=== PATIENT | male | born 1990 | race Caucasian/White ===

== ENCOUNTER 2016-10-15 03:59 | Inpatient (IN) | payer MEDICAID, OTHER ==
[2016-10-15] MEDS ORDERED: Ondansetron INJ* 2 MG/ML VIAL IV ONE ×2 (04:15→06:15)
[2016-10-15] MEDS ORDERED: NS 0.9% 1000 ML* 1,000 ML IV ONE ×2 (04:15→06:17)
[2016-10-15 04:38] LABS: Hematocrit 50 % (42-52); Hemoglobin 17.9 g/dl (14.0-18.0); Mean Corpuscular HGB Conc 36 g/dl (31-36); Mean Corpuscular Hemoglobin 37 pg (27-31); Mean Corpuscular Volume 103 fL (80-94); Mean Platelet Volume 8 um3 (7.4-10.4); Red Blood Count 4.83 10^6/ul (4.0-5.4); Red Cell Distribution Width 13 % (10.5-15); White Blood Count 19.8 10^3/ul (3.5-10.8)
[2016-10-15 04:43] LABS: Add Diff/Slide Review? Slide Review Added; Comments Flag Yes
--- NOTE | 2016-10-15 04:50 | ED ---
Akbar Tsang Claudia, scribed for Allen Wilson MD on 10/15/16 at 0412 . Abdominal Pain/Male - HPI Summary HPI Summary: 26 year old male presents to the ED with LUQ abd pain radiating to his back. Pt notes the abd pain just started a few hours ago. Pt notes that he has been vomiting for the past week, but it has gotten progressively worse in the past few days. Pt states that he had several bouts of emesis today. Pt notes he has an appt. with his PCP next week. Pt also admits to nausea bu denies any fever or chills. - History of Current Complaint Chief Complaint: EDAbdPain Stated Complaint: ABD PAIN Hx Obtained From: Patient Onset/Duration: Gradual Onset, Still Present, Worse Since - today Pain Intensity: 8 Pain Scale Used: 0-10 Numeric Location: Discrete At: LUQ Radiates: Yes Radiates to: Other - left shoulder Character: Sharp Associated Signs And Symptoms: Positive: Nausea, Vomiting - Allergies/Home Medications Allergies/Adverse Reactions: Allergies Allergy/AdvReac Type Severity Reaction Status Date / Time No Known Allergies Allergy Verified 04/27/16 15:18 PMH/Surg Hx/FS Hx/Imm Hx Previously Healthy: Yes Endocrine/Hematology History: Denies: Hx Diabetes, Hx Thyroid Disease Cardiovascular History: Denies: Hx Hypertension Respiratory History: Denies: Hx Asthma, Hx Chronic Obstructive Pulmonary Disease (COPD) GI History: Denies: Hx Ulcer Sensory History: Reports: Hx Contacts or Glasses - glasses Opthamlomology History: Reports: Hx Contacts or Glasses - glasses - Surgical History Surgery Procedure, Year, and Place: inguinal hernia repair 2011. birthmark removal from back Infectious Disease History: No Infectious Disease History: Denies: Hx Hepatitis, Hx Human Immunodeficiency Virus (HIV), Hx of Known/ Suspected MRSA, Hx Shingles, Hx Tuberculosis, History Other Infectious Disease, Traveled Outside the [place] in Last 30 Days - Family History Known Family History: Positive: Other - noncontibutory - Social History Occupation: Employed Full-time Lives: With Family Alcohol Use: Daily Alcohol Amount: 2 drinks per day, more on days off up to 5 drinks Substance Use Type: Reports: None Smoking Status (MU): Never Smoked Tobacco Review of Systems Constitutional: Negative Negative: Fever, Chills Eyes: Negative ENT: Negative Cardiovascular: Negative Respiratory: Negative Positive: Abdominal Pain, Vomiting, Nausea Genitourinary: Negative Musculoskeletal: Negative Skin: Negative Neurological: Negative Psychological: Normal All Other Systems Reviewed And Are Negative: Yes Physical Exam Triage Information Reviewed: Yes Vital Signs On Initial Exam: Initial Vitals Temp Pulse Resp BP Pulse Ox 97.7 F 96 24 154/115 99 10/15/16 04:06 10/15/16 04:06 10/15/16 04:06 10/15/16 04:06 10/15/16 04:06 Vital Signs Reviewed: Yes Appearance: Positive: Pain Distress - mild discomfort, Obese Skin: Positive: Warm Eyes: Positive: EARL ENT: Positive: Hearing grossly normal Neck: Positive: Supple Respiratory/Lung Sounds: Positive: Clear to Auscultation, Breath Sounds Present Cardiovascular: Positive: Normal Abdomen Description: Positive: Soft, Other: - upper abd tenderness. Negative: Guarding Musculoskeletal: Positive: Normal, Strength/ROM Intact Neurological: Positive: Sensory/Motor Intact, Alert, Oriented to Person Place, Time Psychiatric: Positive: Affect/Mood Appropriate Diagnostics - Vital Signs Vital Signs Temp Pulse Resp BP Pulse Ox 10/15/16 04:06 97.7 F 96 24 154/115 99 - Laboratory Lab Results: Lab Results 10/15/16 Range/Units 04:20 WBC 19.8 H (3.5-10.8) 10^3/ul RBC 4.83 (4.0-5.4) 10^6/ul Hgb 17.9 (14.0-18.0) g/dl Hct 50 (42-52) % MCV 103 H (80-94) fL MCH 37 H (27-31) pg MCHC 36 (31-36) g/dl RDW 13 (10.5-15) % Plt Count 296 (150-450) 10^3/ul MPV 8 (7.4-10.4) um3 Neut % (Auto) 88.6 H (38-83) % Lymph % (Auto) 5.3 L (25-47) % [place] % (Auto) 5.1 (1-9) % Eos % (Auto) 0 (0-6) % Baso % (Auto) 1.0 (0-2) % Absolute Neuts (auto) 17.5 H (1.5-7.7) 10^3/ul Absolute Lymphs (auto) 1.0 (1.0-4.8) 10^3/ul Absolute Monos (auto) 1.0 H (0-0.8) 10^3/ul Absolute Eos (auto) 0 (0-0.6) 10^3/ul Absolute Basos (auto) 0.2 (0-0.2) 10^3/ul Absolute Nucleated RBC 0.01 10^3/ul Nucleated RBC % 0 Result Diagrams: 10/15/16 04:20 10/15/16 05:10 Lab Statement: Any lab studies that have been ordered have been reviewed, and results considered in the medical decision making process. - EKG 4:08 Cardiac Rate: NL EKG Rhythm: Sinus Rhythm - 93 beats/min ST Segment: Non-Specific - non-specific T wave changes Abdominal Pain Fem Course/Dx - Diagnoses Provider Diagnoses: Pancreatitis - Provider Notifications Discussed Care Of Patient With: dr cerrato Instructed by Provider To: Admit As Inpatient Discharge - Discharge Plan Condition: Fair Disposition: ADMITTED TO [facility] Discharge Disposition Comment: Signed out to Dr. Sparks pending CT abd/pelvis Referrals: Duc López MD [Primary Care Provider] - The documentation as recorded by the Akbar alvarado Claudia accurately reflects the service I personally performed and the decisions made by , Allen Wilson MD.
[2016-10-15 05:21] LABS: Sodium 120 mmol/L (133-145)
[2016-10-15] MEDS ORDERED: Morphine INJ* 4 MG/ML 1 ML CARPUJECT IV ONE (05:21)
[2016-10-15 05:22] LABS: ALT 86 U/L (7-52); Albumin 4.7 g/dL (3.2-5.2); Alkaline Phosphatase 61 U/L (34-104); Anion Gap 14 mmol/L (2-11); BUN/Creatinine Ratio 9.3 (8-20); Blood Urea Nitrogen 18 mg/dL (6-24); C Reactive Protein 10.25 mg/L (< 5.00); CO2 Carbon Dioxide 17 mmol/L (22-32); Calcium 8.8 mg/dL (8.6-10.3); Chloride 89 mmol/L (101-111); EGFR African American 53.7 (>60); EGFR Non-African American 41.7 (>60); Glucose 118 mg/dL (70-100); Lipase 3738 U/L (11.0-82.0); Total Protein 7.7 g/dL (6.4-8.9)
[2016-10-15] MEDS ORDERED: Ondansetron INJ* 2 MG/ML VIAL ONE (06:16)
[2016-10-15] MEDS ORDERED: Iodixanol* (CONTRAST) 320 MG/ML 100 ML SDV IV ONE (06:16)
[2016-10-15] MEDS ORDERED: HYDROmorphone INJ* 1 MG/ML CARPUJECT SYRINGE ONE (06:16)
[2016-10-15] MEDS ORDERED: HYDROmorphone INJ* 1 MG/ML CARPUJECT SYRINGE IV SLOW PU ONE (06:17)
[2016-10-15] MEDS ORDERED: Metoprolol Tartrate IV* 1 MG/ML 5 ML VIAL IV PRN (06:22)
[2016-10-15] MEDS ORDERED: Thiamine IV* 100 MG/ML 2 ML VIAL IM ONE (06:26)
[2016-10-15 06:36] LABS: Alcohol < 10 mg/dL (<10)
[2016-10-15 06:47] LABS: Troponin I 0.01 ng/mL (<0.04)
[2016-10-15 06:49] LABS: Magnesium 2.2 mg/dL (1.9-2.7)
--- NOTE | 2016-10-15 07:53 | RAD ---
INDICATION: Abdominal pain. COMPARISON: There are no prior studies available for comparison. TECHNIQUE: A CT scan of the abdomen and pelvis was performed with intravenous and oral contrast following intravenous injection of 145 ml of Visipaque 320 nonionic contrast. Contiguous axial sections were obtained from the lung bases through the symphysis pubis. Images were reconstructed in the coronal and sagittal planes. FINDINGS: The lung bases are clear. No pleural effusion is present. The liver is moderately enlarged and decreased in attenuation consistent with fatty infiltration. No calcified gallstones are seen. The spleen is normal in size without focal abnormality. The pancreas is enlarged especially in the body and tail with stranding in the adjacent retroperitoneal fat and fluid surrounding the pancreas and also extending into the left paracolic gutter most consistent with acute interstitial pancreatitis. No pancreatic duct ductal distention or calcifications are seen. There is no evidence for pancreatic necrosis. No focal fluid collection is seen. The kidneys and adrenal glands are normal in size. No hydronephrosis is seen. No significant focal renal abnormality is seen. The aorta is normal in caliber and demonstrates homogeneous contrast opacification. No significant enlarged retroperitoneal lymph nodes are seen. The stomach, small and large bowel appear nondistended. The appendix is within normal limits. There is no evidence for diverticulitis or colitis. There is a small periumbilical hernia containing fat. There is a mesh graft in the lower pelvic wall most consistent with a hernia repair. There is no evidence for recurrent hernia. There is a small amount of free intraperitoneal fluid mainly within the left paracolic gutter and left upper quadrant. No free intraperitoneal air is seen. No significant focal osseous abnormality is seen. IMPRESSION: 1. FINDINGS CONSISTENT WITH ACUTE INTERSTITIAL PANCREATITIS. 2. MODERATE HEPATOMEGALY AND HEPATIC STEATOSIS.
--- NOTE | 2016-10-15 09:15 | RAD ---
HISTORY: Rule out gallstone pancreatitis COMPARISONS: CT dated October 15, 2016 TECHNIQUE: Multiple transverse and longitudinal ultrasound images were obtained of the right upper quadrant of the abdomen using grayscale, color Doppler, and spectral Doppler imaging. FINDINGS: LIVER: The liver is diffusely echogenic and coarse in echotexture, with decreased acoustic transmission. The liver is enlarged measuring 24.9 cm.. There is normal monophasic hepatopedal flow of the portal vein on Doppler imaging. BILIARY TREE: There is no intrahepatic or extrahepatic biliary dilatation. The common duct measures 0.3 cm. GALLBLADDER: The gallbladder is well-visualized. There is no cholelithiasis, gallbladder wall thickening, pericholecystic fluid, or sonographic Cabello sign. PANCREAS: Pancreatic head is enlarged suggestive of edema consistent with history of pancreatitis. RIGHT KIDNEY: The right kidney is normal in shape, size, contour, and echogenicity. There is no hydronephrosis or nephrolithiasis. The right kidney measures 11.4 x 4.7 x 5.8 cm. AORTA AND IVC: The aorta and IVC are unremarkable. FLUID: There are no pleural effusions. There is no free fluid within the hepatorenal recess. OTHER FINDINGS: None. IMPRESSION: 1. HEPATOMEGALY WITH FATTY INFILTRATION OF THE LIVER. 2. NO CHOLELITHIASIS
[2016-10-15] MEDS ORDERED: HYDROmorphone INJ* 1 MG/ML CARPUJECT SYRINGE IV SLOW PU PRN (11:06)
[2016-10-15] MEDS: Ondansetron INJ* 2 MG/ML VIAL IV PRN ×3 (11:31→23:53)
[2016-10-15] MEDS: NS 0.9% 1000 ML* 1,000 ML IV SCH ×2 (11:33→18:52)
[2016-10-15] MEDS: Heparin VIAL(*) 5000 UNITS/ML VIAL (FIVE THOUSAND) SUBCUT SCH ×2 (15:19→21:49)
--- NOTE | 2016-10-15 17:21 | HP ---
CC: Duc López MD HISTORY AND PHYSICAL: DATE OF ADMISSION: 10/15/16 TIME OF EVALUATION: 0600 PRIMARY CARE PHYSICIAN: Duc López MD CHIEF COMPLAINT: Abdominal pain, nausea, vomiting. HISTORY OF PRESENT ILLNESS: This is a 26-year-old male with a past medical history of alcohol use and non-ischemic cardiomyopathy with an ejection fraction of 20%, who presents to the emergency room with acute onset of abdominal pain. The patient states he has been nauseous and vomiting for the past several weeks. It has gotten worse over the past 2 or 3 days and last evening around 8:30, he developed acute- onset abdominal pain, described as a band around his abdomen with pain in his left shoulder as well. He does have abdominal pain when he takes deep breath. No chest pain. No shortness of breath. He has had chills. He has had some congestion. No cough. No fever. No lower extremity swelling. He did stop taking his Lasix, but was noticing he was gaining weight, so resumed it about 2-1/2 weeks ago and has been steady around 240 to 239 pounds. He has an appointment with his primary next week and he is going to follow up regarding his nausea and vomiting, but then the abdominal pain began and the patient came to the emergency room for further evaluation. In the emergency room, the patient had labs, imaging is pending, and he was referred to the hospitalist service for further evaluation. In the emergency room, the patient had 1 L of normal saline, Zofran 4 mg, and 4 mg of Dilaudid, and is being admitted for presumed pancreatitis. PAST MEDICAL HISTORY: 1. Morbid obesity. 2. Alcohol use. 3. Non-ischemic cardiomyopathy with an ejection fraction of 20%, followed by Dr. Montiel. The patient states he was not wearing the LifeVest, so returned it. 4. 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 5. Hypertension. 6. History of transaminitis. 7. Depression. MEDICATIONS: 1. Potassium chloride 10 mEq p.o. daily. 2. Metoprolol succinate 25 mg p.o. daily. 3. Lisinopril 20 mg p.o. daily. 4. Lasix 20 mg q.a.m. 5. The patient is on an antidepressant, unclear which one. 6. Aspirin as needed. 7. Tylenol PM as needed for sleep. ALLERGIES: No known drug allergies. FAMILY HISTORY: Mother has hypertension. Father of lung cancer. 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 He states he still drinks 3 to 4 beers per day. He says in the last 4 days, he has only been able to drink 3 beers total due to all the nausea and vomiting. No tobacco or illicit drug use. His healthcare proxy is his mother, Candi. CODE STATUS: Full code. REVIEW OF SYSTEMS: As mentioned in the HPI. PHYSICAL EXAMINATION GENERAL: Some mild discomfort secondary to pain. VITAL SIGNS: Temp 97.7, pulse rate 96, respiratory rate 24, oxygen saturation 99% on room air. HEENT: Pupils are equal and reactive. Anicteric. Head normocephalic. Oropharynx: Mucous membranes are dry. NECK: Supple. No lymphadenopathy. RESPIRATORY: Diminished breath sounds. No wheezes, rhonchi, or rales. CARDIAC: Regular rate and rhythm. Soft systolic murmur heard throughout. ABDOMEN: Hypoactive bowel sounds. Soft. Diffuse tenderness, mostly in the epigastric, left-sided abdomen. EXTREMITIES: No clubbing, cyanosis, or edema. +1 DPs. NEUROLOGICAL: Alert and oriented x3. No focal neurologic deficits. DIAGNOSTIC STUDIES/LAB DATA: White count 19.8, hemoglobin 17.9, hematocrit 50 , platelets 296. Sodium 120, potassium still pending, chloride 89, bicarb 17, BUN 18, creatinine 1.94, glucose 118. Total bilirubin 1.5. CRP is 10. Lipase 3738. EKG shows sinus rhythm with inverted T-waves in the anterolateral leads. ASSESSMENT AND PLAN: This is a 26-year-old male with past medical history of alcohol abuse, non-ischemic cardiomyopathy, who presents to the emergency room with nausea, vomiting, and acute onset abdominal pain, found to have what is believed to be pancreatitis. 1. Nausea, vomiting, abdominal pain. Assessment: We do not have the imaging back yet. The patient's history and physical are consistent with most likely alcohol- related pancreatitis. He has leukocytosis. He has elevated lipase. He also has acute kidney injury. His potassium is pending at this time and he also was shown to have a metabolic acidosis. Plan: Because of his non-ischemic cardiomyopathy and ejection fraction of 20%, fluid resuscitate him aggressively is going to be a challenge. I think putting him in the ICU with bolusing of fluids, close monitoring of his I's and O's is warranted. Recommend following up on his CAT scan. If there is any question of necrotizing pancreatitis, antibiotics should be initiated. I also added on triglycerides, troponin, magnesium, and an alcohol level as well and I will order an ultrasound to rule out any evidence of gallstone pancreatitis as he does have elevated LFTs and a slightly elevated bilirubin. 2. Acute kidney injury. As mentioned, likely secondary to prerenal azotemia in the setting of pancreatitis. Plan: Fluid resuscitate, renally dose his meds, and repeat his labs in the morning. We will hold his lisinopril. CHRONIC MEDICAL PROBLEMS: 1. Non-ischemic cardiomyopathy. Assessment: The patient has not been following up with Dr. Montiel. He states that his most recent echo was in June of 2016. He states there was not a significant improvement in his ejection fraction, he stopped wearing his LifeVest, but denied any significant weight gain since he has been back on the Lasix. Plan: We will fluid resuscitate him and we will hold his Lasix and his lisinopril due to his nausea, vomiting, and inability to take p.o., we will order Lopressor p.r.n. IV. 2. Hypertension. As mentioned, we will hold his oral agents and start him on Lopressor IV p.r.n. 3. Alcohol use. We will place the patient on [place] protocol and order Social Work consult. Per ER nurse it appears he was not as forth coming with the quantity of his alcohol use. 4. Depression. We will need to find out what SSRI that he is taking and once he is able to take p.o., to resume this. 5. FEN. We will place the patient n.p.o. for his pancreatitis with IV fluids. 6. DVT prophylaxis. Moderate risk. We will place him on heparin subcu t.i.d. 7. Code status: Full code. PATIENT TIME: Greater than 30 minutes was spent doing history and physical, more than half time was spent in direct patient contact. [id number]/[facility] #: [id number] MTDD
--- NOTE | 2016-10-15 17:44 | PN ---
Progress Note - Progress Note Note: Pt seen in follow up after admission this AM. He continues to have pain. He states with the pain medication on board his pain is about a 2, without 5-6. He is interested in drinking some water. We discussed how important it is for him to abstain from drinking any alcohol. I discussed frankly with him and his mom potential complications from long term care phlebotomist alcoholism. Will continue to reinforce this message. Currently the patient is stable. Will follow up tomorrow.
[2016-10-15] MEDS: HYDROmorphone INJ* 1 MG/ML CARPUJECT SYRINGE IV SLOW PU PRN ×2 (18:52→23:53)
[2016-10-15] MEDS: LORazepam INJ* 2 MG/ML 1 ML VIAL IV SCH (22:19)
[2016-10-16] MEDS: LORazepam INJ* 2 MG/ML 1 ML VIAL IV SCH (02:15)
[2016-10-16] MEDS ORDERED: Metoprolol Tartrate IV* 1 MG/ML 5 ML VIAL IV ONE (03:52)
[2016-10-16] MEDS: Heparin VIAL(*) 5000 UNITS/ML VIAL (FIVE THOUSAND) SUBCUT SCH ×3 (05:43→21:08)
[2016-10-16 06:14] LABS: Hematocrit 52 % (42-52); Hemoglobin 17.8 g/dl (14.0-18.0); Mean Corpuscular HGB Conc 34 g/dl (31-36); Mean Corpuscular Hemoglobin 36 pg (27-31); Mean Corpuscular Volume 104 fL (80-94); Mean Platelet Volume 9 um3 (7.4-10.4); Red Blood Count 4.96 10^6/ul (4.0-5.4); Red Cell Distribution Width 13 % (10.5-15); White Blood Count 19.4 10^3/ul (3.5-10.8)
[2016-10-16 06:20] LABS: ALT 59 U/L (7-52); Albumin 3.1 g/dL (3.2-5.2); Alkaline Phosphatase 55 U/L (34-104); BUN/Creatinine Ratio 10.1 (8-20); Blood Urea Nitrogen 14 mg/dL (6-24); CO2 Carbon Dioxide 18 mmol/L (22-32); Calcium 6.9 mg/dL (8.6-10.3); Chloride 103 mmol/L (101-111); EGFR African American 79.5 (>60); EGFR Non-African American 61.8 (>60); Globulin 2.9 g/dL (2-4); Glucose 139 mg/dL (70-100); Sodium 131 mmol/L (133-145)
[2016-10-16] MEDS ORDERED: Calcium Gluconate INJ* 1 GM in NS 0.9% 50 ML* 50 ML IVPB ONE (07:23)
[2016-10-16] MEDS: HYDROmorphone INJ* 1 MG/ML CARPUJECT SYRINGE IV SLOW PU PRN ×4 (08:04→21:07)
[2016-10-16 08:14] LABS: Lipase 3307 U/L (11.0-82.0)
--- NOTE | 2016-10-16 08:49 | PN ---
Subjective Date of Service: 10/16/16 Interval History: Pt continues to have abdominal pain but is feeling slightly better today than yesterday. He states that when he received ativan and dilaudid together last night he began to hallucinate. He feels slightly shaky and sweaty today and thinks he may be in mild alcohol withdrawal. Objective Active Medications: Acetaminophen (Tylenol Tab*) 650 mg PO Q4H PRN PRN Reason: FEVER/PAIN Al Hydrox/Mg Hydrox/Simethicone (Maalox Plus*) 30 ml PO Q6H PRN PRN Reason: INDIGESTION Docusate Sodium (Colace Cap*) 100 mg PO BID PRN PRN Reason: CONSTIPATION Heparin Sodium (Porcine) (Heparin Vial(*)) 5,000 units SUBCUT Q8HR [facility] Last Admin: 10/16/16 05:43 Dose: 5,000 units Hydromorphone HCl (Dilaudid Iv*) 1 mg IV SLOW PU Q3H PRN PRN Reason: PAIN Last Admin: 10/16/16 08:04 Dose: 1 mg Sodium Chloride (Ns 0.9% 1000 Ml*) 1,000 mls @ 125 mls/hr IV PER RATE NICKY Stop: 10/16/16 19:14 Last Admin: 10/15/16 18:52 Dose: 125 mls/hr Lactated Ringer's (Lactated Ringers 1000 Ml Bag*) 1,000 mls @ 100 mls/hr IV ONCE ONE Stop: 10/16/16 17:22 Lorazepam (Ativan Inj*) 0 mg IV .PER WAM SCORE [facility] PRN Reason: Protocol Last Admin: 10/16/16 02:15 Dose: 4 mg Metoprolol Tartrate (Lopressor Iv*) 5 mg IV Q6H PRN PRN Reason: BLOOD PRESSURE Last Admin: 10/15/16 23:51 Dose: 5 mg Ondansetron HCl (Zofran Inj*) 4 mg IV Q4H PRN PRN Reason: NAUSEA Last Admin: 10/15/16 23:53 Dose: 4 mg Prochlorperazine Edisylate (Compazine Inj*) 5 mg IV Q6H PRN PRN Reason: NAUSEA/VOMITING Senna (Senokot Tab*) 1 tab PO BID PRN PRN Reason: CONSTIPATION Vital Signs 10/15/16 10/15/1617 08:45 09:00 09:15 Temperature Pulse Rate 75 79 84 Respiratory 9 16 18 Rate Blood Pressure 150/87 153/82 160/87 (mmHg) O2 Sat by Pulse 98 98 98 Oximetry 10/15/16 10/15/16 10/15/16 10:00 11:00 11:25 Temperature Pulse Rate 81 89 Respiratory 19 20 28 Rate Blood Pressure 154/82 146/86 (mmHg) O2 Sat by Pulse 97 99 Oximetry 10/15/16 10/15/16 10/15/16 12:00 13:00 14:00 Temperature 99.0 F Pulse Rate 89 86 81 Respiratory 23 16 5 Rate Blood Pressure 153/80 138/69 143/89 (mmHg) O2 Sat by Pulse 96 94 95 Oximetry 10/15/16 10/15/16 10/15/16 15:00 15:50 16:00 Temperature 98.6 F Pulse Rate 75 93 Respiratory 23 22 Rate Blood Pressure 147/78 140/77 (mmHg) O2 Sat by Pulse 96 96 Oximetry 10/15/16 10/15/16 10/15/16 17:00 18:00 18:52 Temperature Pulse Rate 93 94 Respiratory 25 29 28 Rate Blood Pressure 152/91 145/73 (mmHg) O2 Sat by Pulse 96 95 Oximetry 10/15/16 10/15/16 10/15/16 19:00 19:53 19:58 Temperature 98.3 F Pulse Rate 107 Respiratory 21 20 Rate Blood Pressure 139/79 (mmHg) O2 Sat by Pulse 96 Oximetry 10/15/16 10/15/16 10/15/16 20:00 21:00 22:00 Temperature Pulse Rate 103 103 111 Respiratory 40 23 16 Rate Blood Pressure 140/80 133/81 141/85 (mmHg) O2 Sat by Pulse 94 94 96 Oximetry 10/15/16 10/15/16 10/15/16 22:17 22:19 23:00 Temperature Pulse Rate 115 134 Respiratory 22 20 Rate Blood Pressure 132/95 (mmHg) O2 Sat by Pulse 96 94 Oximetry 10/15/16 10/16/16 10/16/16 23:53 00:00 00:01 Temperature 98.3 F Pulse Rate 133 120 Respiratory 19 16 Rate Blood Pressure 146/92 (mmHg) O2 Sat by Pulse 93 93 Oximetry 10/16/16 10/16/16 10/16/16 01:00 02:00 02:15 Temperature Pulse Rate 126 131 Respiratory 22 20 26 Rate Blood Pressure 137/78 142/99 (mmHg) O2 Sat by Pulse 93 94 Oximetry 10/16/16 10/16/16 10/16/16 03:00 04:00 04:05 Temperature 96.0 F Pulse Rate 147 73 96 Respiratory 22 26 Rate Blood Pressure 164/97 142/104 146/98 (mmHg) O2 Sat by Pulse 92 93 93 Oximetry 10/16/16 10/16/16 10/16/16 05:00 05:45 06:00 Temperature Pulse Rate 136 133 Respiratory 27 14 42 Rate Blood Pressure 163/117 134/89 (mmHg) O2 Sat by Pulse 96 95 Oximetry 10/16/16 10/16/16 10/16/16 06:05 07:44 08:04 Temperature 98.4 F Pulse Rate Respiratory 16 30 Rate Blood Pressure (mmHg) O2 Sat by Pulse Oximetry Oxygen Devices in Use Now: None Appearance: Morbidly obese young male sitting up in bed, NAD Eyes: No Scleral Icterus Ears/Nose/Mouth/Throat: Mucous Membranes Moist Respiratory: Symmetrical Chest Expansion and Respiratory Effort, - - decreased breath sounds at the bases but otherwise CTA Cardiovascular: No Edema, - - markedly tachycardic and regular Abdominal: - - BS+ soft, ND, moderately tender to palpation in the upper quadrants Extremities: No Clubbing, Cyanosis Skin: No Rash or Ulcers, No Nodules or Sclerosis, - - 2 sutures present on left side of scalp Neurological: - - slightly sleepy but arousable and able to carry on full conversation Result Diagrams: 10/16/16 05:45 10/16/16 06:37 Additional Lab and Data: Lab Results 10/15/16 Range/Units 04:20 WBC 19.8 H (3.5-10.8) 10^3/ul RBC 4.83 (4.0-5.4) 10^6/ul Hgb 17.9 (14.0-18.0) g/dl Hct 50 (42-52) % MCV 103 H (80-94) fL MCH 37 H (27-31) pg MCHC 36 (31-36) g/dl RDW 13 (10.5-15) % Plt Count 296 (150-450) 10^3/ul MPV 8 (7.4-10.4) um3 Neut % (Auto) 88.6 H (38-83) % Lymph % (Auto) 5.3 L (25-47) % [place] % (Auto) 5.1 (1-9) % Eos % (Auto) 0 (0-6) % Baso % (Auto) 1.0 (0-2) % Absolute Neuts (auto) 17.5 H (1.5-7.7) 10^3/ul Absolute Lymphs (auto) 1.0 (1.0-4.8) 10^3/ul Absolute Monos (auto) 1.0 H (0-0.8) 10^3/ul Absolute Eos (auto) 0 (0-0.6) 10^3/ul Absolute Basos (auto) 0.2 (0-0.2) 10^3/ul Absolute Nucleated RBC 0.01 10^3/ul Nucleated RBC % 0 Microbiology and Other Data: Microbiology 10/15/16 07:30 Nasal Screen MRSA (PCR)(CHRISTINE) - Final Nasal Mrsa Negative Assess/Plan/Problems-Billing Mr Mei is a 26 yo M who has a h/o alcoholism, dilated cardiomyopathy, HTN and SHRUTHI who presented to the ER with c/o abdominal pain, nausea and vomiting and was admitted for pancreatitis. - Patient Problems (1) Pancreatitis, alcoholic, acute Current Visit: Yes Status: Acute Code(s): K85.20 - ALCOHOL INDUCED ACUTE PANCREATITIS WITHOUT NECROSIS OR INFCT SNOMED Code(s): 062362538 Comment: The patient has pancreatitis based on lab testing and CT imaging. It was felt his pancreatitis is secondary to alcohol use. He appears "sicker" today than yesterday afternoon though I suspect some of that may be related to EtOH withdrawal. Will continue IVF hydration. Monitor abdominal symptoms and labs. The patient was also found to have marked triglyceridemia on labs and this may also be contributing to his pancreatitis. (2) Alcohol withdrawal Current Visit: Yes Status: Acute Code(s): F10.239 - ALCOHOL DEPENDENCE WITH WITHDRAWAL, UNSPECIFIED SNOMED Code(s): 959715700 Comment: The patient is likely in alcohol withdrawal at this time as evidenced by marked tachycardia, diaphoresis and tremulousness. He began to hallucinate with ativan last evening though he believes he received it close to receiving dilaudid. Will try to space the 2 apart but will also discuss with the safety administrator about using precedex or another benzodiazepine. (3) Alcoholic hepatitis Current Visit: Yes Status: Acute Code(s): K70.10 - ALCOHOLIC HEPATITIS WITHOUT ASCITES SNOMED Code(s): 915839598 Comment: LFTs are trending down except bilirubin is slightly up today. Continue to follow. (4) Hypocalcemia Current Visit: Yes Status: Acute Code(s): E83.51 - HYPOCALCEMIA SNOMED Code(s): 5363900 Comment: The patient's calcium level is down today. Will give calcium gluconate 1g IV this AM. (5) BOBBY (acute kidney injury) Current Visit: Yes Status: Acute Code(s): N17.9 - ACUTE KIDNEY FAILURE, UNSPECIFIED SNOMED Code(s): 97834513 Comment: The patient presented in BOBBY with a creatinine of 1.94 up from a baseline of 1.1 previously. (6) Hyponatremia Current Visit: Yes Status: Acute Code(s): E87.1 - HYPO-OSMOLALITY AND HYPONATREMIA SNOMED Code(s): 72234229 Comment: Improving with IVF. Likely secondary to dehydration secondary to pancreatitis. Continue to monitor. (7) Leukocytosis Current Visit: Yes Status: Acute Code(s): D72.829 - ELEVATED WHITE BLOOD CELL COUNT, UNSPECIFIED SNOMED Code(s): 394188461 Comment: Likely secondary to acute pancreatitis. No fever or other signs of infection. Hold off on Abx therapy for now. (8) Dilated cardiomyopathy secondary to alcohol Current Visit: Yes Status: Acute Code(s): I42.6 - ALCOHOLIC CARDIOMYOPATHY SNOMED Code(s): 11098775 Comment: The patient was found to have an EF of <20% on echo 04/27/16. 20-25% EF in 07/2016. He is currently off his home medication regimen given his NPO status. Will need to resume his usual meds as soon as he is taking in orals. I suspect his dilated cardiomyopathy is secondary to alcohol abuse. (9) Hypertriglyceridemia Current Visit: Yes Status: Acute Code(s): E78.1 - PURE HYPERGLYCERIDEMIA SNOMED Code(s): 692059935 Comment: The patient's triglyceride level is markedly elevated >4000. His triglyceride level was 273 05/2016. (10) HTN (hypertension) Current Visit: Yes Status: Acute Code(s): I10 - ESSENTIAL (PRIMARY) HYPERTENSION SNOMED Code(s): 42879498 Comment: Slightly uncontrolled at this time though the patient has not had his usual home medications. Will continue IV metoprolol but change to standing q6hr. As soon as he is taking orals will resume his usual home medication regimen. (11) Alcohol abuse Current Visit: Yes Status: Acute Code(s): F10.10 - ALCOHOL ABUSE, UNCOMPLICATED SNOMED Code(s): 58556056 Comment: The patient appears to be in alcohol withdrawal at this time. He states at baseline he will drink a "handle" of vodka on days that preceed a day that he does not have to work but on days that he has to work the next day he will drink a combination of vodka and beer. We discussed very frankly the need to quit drinking. (12) DVT prophylaxis Current Visit: Yes Status: Acute Code(s): PTC4525 - SNOMED Code(s): 288026521 Comment: SQ heparin (13) Full code status Current Visit: Yes Status: Acute Code(s): Z78.9 - OTHER SPECIFIED HEALTH STATUS SNOMED Code(s): 145812851
[2016-10-16] MEDS ORDERED: Metoprolol Tartrate IV* 1 MG/ML 5 ML VIAL IV SCH (09:00)
[2016-10-16] MEDS: Metoprolol Tartrate IV* 1 MG/ML 5 ML VIAL IV SCH ×3 (09:30→21:08)
[2016-10-16] MEDS ORDERED: LORazepam INJ* 2 MG/ML 1 ML VIAL IV PUSH PRN (11:20)
[2016-10-16] MEDS ORDERED: Ziprasidone IM INJ* 20 MG/ML VIAL IM PRN (11:21)
--- NOTE | 2016-10-16 13:19 | PN ---
Progress Note - Progress Note Note: CRITICAL CARE MEDICINE DATE: 10/16/16 TIME: 1100 REFERRING PROVIDER: Molina REASON/CHIEF COMPLAINT: severe etoh pancreatic HISTORY OF PRESENT ILLNESS: 26 M h/o alcoholism and previous withdrawal without seizures, with underlying etoh induced cardiomyopathy with EF 20% presenting with abd pain and severe pancreatitis. Treated with IVF, narcotics and benzos overnight but with hallucinations associated and given MODs ICU consult requested. REVIEW OF SYSTEMS: As per HPI. does complain of feeling a bit shallow with his breathing now. PAST MEDICAL HISTORY: As per HPI. MEDICATIONS: Reviewed. ALLERGIES: Reviewed. SOCIAL HISTORY: Reviewed. extensive etoh. working. FAMILY HISTORY: Noncontributory at present. PHYSICAL EXAM: Vital Signs: Reviewed. HR 120s. DBP 90s. RR up to 30. Sat 94% RA Neurologic: awake, communicating, mild encephlaopathy but nonfocal HEENT: anicteric, perrl, mm dry Cardiovascular: tachy, S1, S2 no gallop Respiratory: coarse but clear bl Abdomen: obese, distended Extremities: warm Psych: blunt affect Access: piv LABS: Reviewed. IMAGING: Reviewed. MEDICATIONS: Reviewed. ASSESSMENT: 26 M Acute severe pancreatitis Mild metabolic >hepatic encephalopathy Acute renal failure - hopefully just pre-renal Hyponatremia on admission PLAN: Neurologic: tolerating. no overt withdrawal alone but can keep prn benzos. pain seems to be tolerable. Cardiovascular: Perfusing but intravascular volume depleted and likely to overload 3rd space but needs fluid currently nonetheless. My hope is he is on the recovery curve post acute pancreatitis but needing to ride out the atn compenent to his kidneys. Nonetheless needs the fluid for now. ordered. Respiratory: Tolerating, but place on O2 to decreased wob and O2 consumption and hope to avoid ali. Gastrointestinal: abd distended and can be influencing his breathing as well. npo currently. check amm, coags again in am. Renal/Metabolic: uout considerablly low and again error on fluid for now, but may have to wait out atn phase. f/u closely. He is post IV dye as well. carrie Infectious Disease: no abx indication currently Hematology: hemoconcentrated. on thiamine. hsq Endocrine: f/u glu and can repeat TG in am Musculoskeletal: oob Psych/Social: mom present and I explained pts young age and his habit/disease killing him and high potentials for morbidity and mortality. Supportive and preventative care as ordered. Disposition: ICU currently Code Status: Full Critical Care Time: 35min Elisa Mortensen DO
[2016-10-16] MEDS: Ondansetron INJ* 2 MG/ML VIAL IV PRN ×2 (13:31→17:39)
[2016-10-16] MEDS: Docusate CAP* 100 MG PO PRN (17:37)
[2016-10-16] MEDS: Al Hydrox/Mg Hydrox/Simet LIQ* 30 ML UDC PO PRN (17:37)
[2016-10-16] MEDS: Senna TAB PO PRN (17:37)
[2016-10-16] MEDS: PROCHLORPERAZINE INJ 5 MG/ML 2 ML VIAL IV PRN (21:06)
[2016-10-16] MEDS: NS 0.9% 1000 ML* 1,000 ML IV SCH (23:05)
[2016-10-17] MEDS: Ondansetron INJ* 2 MG/ML VIAL IV PRN ×4 (00:19→20:49)
[2016-10-17] MEDS: HYDROmorphone INJ* 1 MG/ML CARPUJECT SYRINGE IV SLOW PU PRN ×6 (00:19→20:32)
[2016-10-17] MEDS: Metoprolol Tartrate IV* 1 MG/ML 5 ML VIAL IV SCH (03:43)
[2016-10-17] MEDS: PROCHLORPERAZINE INJ 5 MG/ML 2 ML VIAL IV PRN ×2 (03:43→09:58)
[2016-10-17] MEDS: Heparin VIAL(*) 5000 UNITS/ML VIAL (FIVE THOUSAND) SUBCUT SCH ×3 (05:55→20:33)
[2016-10-17] MEDS: NS 0.9% 1000 ML* 1,000 ML IV SCH (05:55)
[2016-10-17 06:51] LABS: Albumin 2.6 g/dL (3.2-5.2); BUN/Creatinine Ratio 14.3 (8-20); Direct Bilirubin 0.5 mg/dL (0.03-0.18); EGFR Non-African American 84.7 (>60); Globulin 2.9 g/dL (2-4); Indirect Bilirubin 0.9 mg/dL (0.3-1.0); Magnesium 1.8 mg/dL (1.9-2.7); Phosphorus 1.7 mg/dL (2.5-5.0); Potassium 4.3 mmol/L (3.5-5.0); Total Bilirubin 1.4 mg/dL (0.2-1.0); Total Protein 5.5 g/dL (6.4-8.9)
[2016-10-17 06:58] LABS: Hematocrit 41 % (42-52); Hemoglobin 14.2 g/dl (14.0-18.0); Mean Corpuscular HGB Conc 35 g/dl (31-36); Mean Corpuscular Hemoglobin 36 pg (27-31); Mean Corpuscular Volume 105 fL (80-94); Mean Platelet Volume 9 um3 (7.4-10.4); Red Blood Count 3.92 10^6/ul (4.0-5.4); Red Cell Distribution Width 13 % (10.5-15); White Blood Count 9.6 10^3/ul (3.5-10.8)
[2016-10-17 07:01] LABS: Add Diff/Slide Review? Slide Review Added; Comments Flag Yes
[2016-10-17 07:26] LABS: Eosinophils % 1 % (0-6); Immature Granulocytes 13 % (0-9); Neutrophil % 68 % (38-83); RBC Morphology Normal (Normal)
--- NOTE | 2016-10-17 07:44 | PN ---
Subjective Date of Service: 10/17/16 Interval History: Pt is feeling ok this AM. He states he is pain free at this time. He just had some pain medication. He states that when the medication is wearing off he does have abdominal pain though it is better than when he presented to the hospital. He feels hungry and states the water "tastes good." He denies any SOB but states he has some discomfort when taking a full deep breath. Objective Active Medications: Acetaminophen (Tylenol Tab*) 650 mg PO Q4H PRN PRN Reason: FEVER/PAIN Al Hydrox/Mg Hydrox/Simethicone (Maalox Plus*) 30 ml PO Q6H PRN PRN Reason: INDIGESTION Last Admin: 10/16/16 17:37 Dose: 30 ml Docusate Sodium (Colace Cap*) 100 mg PO BID PRN PRN Reason: CONSTIPATION Last Admin: 10/16/16 17:37 Dose: 100 mg Heparin Sodium (Porcine) (Heparin Vial(*)) 5,000 units SUBCUT Q8HR [facility] Last Admin: 10/17/16 05:55 Dose: 5,000 units Heparin Sodium (Porcine) (Heparin Flush Picc/Ml/Cvc(*)) 0 ml IV FLUSH 0600, 1800 [facility] PRN Reason: Protocol Last Admin: 10/17/16 05:55 Dose: 1 ml Hydromorphone HCl (Dilaudid Iv*) 1 mg IV SLOW PU Q3H PRN PRN Reason: PAIN Last Admin: 10/17/16 06:30 Dose: 1 mg Sodium Chloride (Ns 0.9% 1000 Ml*) 1,000 mls @ 150 mls/hr IV PER RATE [facility] Last Admin: 10/17/16 05:55 Dose: 150 mls/hr Lorazepam (Ativan Inj*) 2 mg IV PUSH Q2H PRN PRN Reason: AGITATION/PARANOIA Metoprolol Tartrate (Lopressor Iv*) 5 mg IV Q6H [facility] Last Admin: 10/17/16 03:43 Dose: 5 mg Ondansetron HCl (Zofran Inj*) 4 mg IV Q4H PRN PRN Reason: NAUSEA Last Admin: 10/17/16 06:30 Dose: 4 mg Prochlorperazine Edisylate (Compazine Inj*) 5 mg IV Q6H PRN PRN Reason: NAUSEA/VOMITING Last Admin: 10/17/16 03:43 Dose: 5 mg Senna (Senokot Tab*) 1 tab PO BID PRN PRN Reason: CONSTIPATION Last Admin: 10/16/16 17:37 Dose: 1 tab Ziprasidone (Geodon Im Inj*) 10 mg IM Q8HR PRN PRN Reason: AGITATION Last Admin: 10/16/16 13:31 Dose: 10 mg Vital Signs 10/16/16 10/16/16 10/16/16 07:44 08:00 08:04 Temperature 98.4 F Pulse Rate 139 Respiratory 35 30 Rate Blood Pressure 133/101 (mmHg) O2 Sat by Pulse 94 Oximetry 10/16/16 10/16/16 10/16/16 09:00 10:00 11:00 Temperature Pulse Rate 140 137 119 Respiratory 25 31 28 Rate Blood Pressure 134/102 128/84 141/92 (mmHg) O2 Sat by Pulse 93 94 94 Oximetry 10/16/16 10/16/16 10/16/16 12:00 12:13 13:00 Temperature 99.3 F Pulse Rate 123 136 125 Respiratory 42 31 33 Rate Blood Pressure 155/110 156/107 (mmHg) O2 Sat by Pulse 98 92 95 Oximetry 10/16/16 10/16/16 10/16/16 13:31 14:00 15:00 Temperature Pulse Rate 124 123 Respiratory 26 20 28 Rate Blood Pressure (mmHg) O2 Sat by Pulse 97 92 Oximetry 10/16/16 10/16/16 10/16/16 16:00 17:00 17:38 Temperature 99.0 F Pulse Rate 123 128 Respiratory 36 26 26 Rate Blood Pressure (mmHg) O2 Sat by Pulse 95 96 Oximetry 10/16/16 10/16/16 10/16/16 17:43 18:00 19:00 Temperature Pulse Rate 110 Respiratory 28 28 18 Rate Blood Pressure 158/100 (mmHg) O2 Sat by Pulse 98 Oximetry 10/16/16 10/16/16 10/16/16 19:16 19:40 20:00 Temperature 97.7 F Pulse Rate 116 122 Respiratory 26 36 Rate Blood Pressure 157/100 171/91 (mmHg) O2 Sat by Pulse 96 99 Oximetry 10/16/16 10/16/16 10/16/16 21:00 21:07 22:00 Temperature Pulse Rate 148 114 Respiratory 36 34 23 Rate Blood Pressure 165/109 150/102 (mmHg) O2 Sat by Pulse 93 96 Oximetry 10/16/16 10/17/16 10/17/16 23:00 00:00 00:19 Temperature 98.8 F Pulse Rate 116 99 Respiratory 23 32 26 Rate Blood Pressure (mmHg) O2 Sat by Pulse 96 89 Oximetry 10/17/16 10/17/16 10/17/16 01:00 02:00 03:00 Temperature Pulse Rate 123 125 128 Respiratory 18 25 24 Rate Blood Pressure 156/94 146/100 189/117 (mmHg) O2 Sat by Pulse 96 96 98 Oximetry 10/17/16 10/17/16 10/17/16 03:43 03:51 04:00 Temperature 99.8 F Pulse Rate 114 Respiratory 40 25 Rate Blood Pressure 152/86 (mmHg) O2 Sat by Pulse 95 Oximetry 10/17/16 10/17/16 10/17/16 05:00 05:47 06:00 Temperature Pulse Rate 120 125 Respiratory 22 24 32 Rate Blood Pressure 150/89 167/102 (mmHg) O2 Sat by Pulse 96 99 Oximetry 10/17/16 06:30 Temperature Pulse Rate Respiratory 36 Rate Blood Pressure (mmHg) O2 Sat by Pulse Oximetry Oxygen Devices in Use Now: Nasal Cannula - 4L-99% Appearance: Young obese male sitting up in bed, NAD Eyes: No Scleral Icterus Ears/Nose/Mouth/Throat: Mucous Membranes Moist Respiratory: Symmetrical Chest Expansion and Respiratory Effort, Clear to Auscultation - clear but decreased breath sounds in all lung molina Cardiovascular: NL Sounds; No Murmurs; No JVD, No Edema, - - tachycardic but regular Abdominal: - - BS+ soft, mildly distended, mildly tender to palpation in the upper quadrants and RLQ Extremities: No Clubbing, Cyanosis Skin: No Rash or Ulcers, No Nodules or Sclerosis Neurological: - - more alert, less diaphoretic this AM Result Diagrams: 10/17/16 06:00 10/17/16 06:00 Additional Lab and Data: Lab Results 10/15/16 Range/Units 04:20 WBC 19.8 H (3.5-10.8) 10^3/ul RBC 4.83 (4.0-5.4) 10^6/ul Hgb 17.9 (14.0-18.0) g/dl Hct 50 (42-52) % MCV 103 H (80-94) fL MCH 37 H (27-31) pg MCHC 36 (31-36) g/dl RDW 13 (10.5-15) % Plt Count 296 (150-450) 10^3/ul MPV 8 (7.4-10.4) um3 Neut % (Auto) 88.6 H (38-83) % Lymph % (Auto) 5.3 L (25-47) % [place] % (Auto) 5.1 (1-9) % Eos % (Auto) 0 (0-6) % Baso % (Auto) 1.0 (0-2) % Absolute Neuts (auto) 17.5 H (1.5-7.7) 10^3/ul Absolute Lymphs (auto) 1.0 (1.0-4.8) 10^3/ul Absolute Monos (auto) 1.0 H (0-0.8) 10^3/ul Absolute Eos (auto) 0 (0-0.6) 10^3/ul Absolute Basos (auto) 0.2 (0-0.2) 10^3/ul Absolute Nucleated RBC 0.01 10^3/ul Nucleated RBC % 0 Microbiology and Other Data: Microbiology 10/15/16 07:30 Nasal Screen MRSA (PCR)(CHRISTINE) - Final Nasal Mrsa Negative Assess/Plan/Problems-Billing Mr Mei is a 26 yo M who has a h/o alcoholism, dilated cardiomyopathy, HTN and SHRUTHI who presented to the ER with c/o abdominal pain, nausea and vomiting and was admitted for pancreatitis. - Patient Problems (1) Pancreatitis, alcoholic, acute Current Visit: Yes Status: Acute Code(s): K85.20 - ALCOHOL INDUCED ACUTE PANCREATITIS WITHOUT NECROSIS OR INFCT SNOMED Code(s): 567843347 Comment: The patient appears to be improving. Lipase has trended down to ~ 1100 today. Pain is improving. Will start clear liquids this AM. I have explained that if he has worsened abdominal pain he should stop drinking/eating the clear liquids and go back to NPO status. Continue IVF-I think he is third spacing the fluid as he is not urinating much. Continue ICU level care as the patient is still tachycardic and now tachypnic and now requiring 4L O2. (2) Alcohol withdrawal Current Visit: Yes Status: Acute Code(s): F10.239 - ALCOHOL DEPENDENCE WITH WITHDRAWAL, UNSPECIFIED SNOMED Code(s): 005080522 Comment: Continue prn ativan and geodon. Pt appears much less diaphoretic and tremulous this AM. Will monitor for signs of overt withdrawal. (3) Alcoholic hepatitis Current Visit: Yes Status: Acute Code(s): K70.10 - ALCOHOLIC HEPATITIS WITHOUT ASCITES SNOMED Code(s): 974219093 Comment: LFTs continue to improve. (4) Hypocalcemia Current Visit: Yes Status: Acute Code(s): E83.51 - HYPOCALCEMIA SNOMED Code(s): 1287614 Comment: Calcium is still slightly low though his albumin is also low. Will hold on further replacement at this time. The patient's phosphorus is also low today. Will give neutraphos today and recheck labs tomorrow. (5) BOBBY (acute kidney injury) Current Visit: Yes Status: Acute Code(s): N17.9 - ACUTE KIDNEY FAILURE, UNSPECIFIED SNOMED Code(s): 12478502 Comment: Resolved with IVF hydration. (6) Hyponatremia Current Visit: Yes Status: Acute Code(s): E87.1 - HYPO-OSMOLALITY AND HYPONATREMIA SNOMED Code(s): 51061103 Comment: Na improved to 132 today. Will continue IVF and monitor BMP. (7) Leukocytosis Current Visit: Yes Status: Acute Code(s): D72.829 - ELEVATED WHITE BLOOD CELL COUNT, UNSPECIFIED SNOMED Code(s): 410905209 Comment: Resolved today without Abx. Continue to monitor. (8) Dilated cardiomyopathy secondary to alcohol Current Visit: Yes Status: Acute Code(s): I42.6 - ALCOHOLIC CARDIOMYOPATHY SNOMED Code(s): 24583246 Comment: The patient was found to have an EF of <20% on echo 04/27/16. 20-25% EF in 07/2016. He is currently off his home medication regimen given his NPO status-as I am giving him clears today will start to add back some of his home medications (ie metoprolol XL). He is now requiring supplemental O2 so I suspect he may have some pulmonary edema. At this time the patient appears stable so I will hold off on CXR and diuretic therapy. (9) Hypertriglyceridemia Current Visit: Yes Status: Acute Code(s): E78.1 - PURE HYPERGLYCERIDEMIA SNOMED Code(s): 163721915 Comment: The patient's triglyceride level is markedly elevated >4000. His triglyceride level was 273 05/2016. Will need to recheck closer to discharge. (10) HTN (hypertension) Current Visit: Yes Status: Acute Code(s): I10 - ESSENTIAL (PRIMARY) HYPERTENSION SNOMED Code(s): 41826467 Comment: BP is now uncontrolled. Resume metoprolol XL, hold lisinopril for now as he is just recovering from BOBBY. (11) Alcohol abuse Current Visit: Yes Status: Acute Code(s): F10.10 - ALCOHOL ABUSE, UNCOMPLICATED SNOMED Code(s): 68102094 Comment: Social work evaluation. (12) DVT prophylaxis Current Visit: Yes Status: Acute Code(s): EVJ1619 - SNOMED Code(s): 073107138 Comment: SQ heparin (13) Full code status Current Visit: Yes Status: Acute Code(s): Z78.9 - OTHER SPECIFIED HEALTH STATUS SNOMED Code(s): 798131374
[2016-10-17] MEDS ORDERED: Magnesium Sulfate 1 GM IV* 1 GM/100 ML BAG IV ONE (08:00)
[2016-10-17] MEDS: Potassium & Sodium Phos 250MG* = 1 PACKET PO SCH ×2 (09:45→20:34)
[2016-10-17] MEDS: Metoprolol Succinate XL TAB* 50 MG PO SCH (09:46)
[2016-10-17] MEDS ORDERED: NS 0.9% 1000 ML* 1,000 ML IV SCH (10:23)
--- NOTE | 2016-10-17 10:30 | PN ---
Progress Note - Progress Note Note: CRITICAL CARE MEDICINE DATE: 10/17/16 TIME: 1000 SUBJECTIVE: Patient seen and examined. 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 breathing ok. PHYSICAL EXAM: Vital Signs: Reviewed. HR 130s. DBP 90s. RR 20s. Sat 94% 4L O2. Neurologic: awake, communicating, mild encephlaopathy but mildly better. HEENT: anicteric, perrl, mm dry Cardiovascular: tachy, S1, S2 no gallop Respiratory: clear bl Abdomen: obese, distended Extremities: warm Psych: blunt affect Access: picc LABS: Reviewed. IMAGING: Reviewed. MEDICATIONS: Reviewed. ASSESSMENT: 26 M Acute severe pancreatitis Mild metabolic >hepatic encephalopathy Acute renal failure Hyponatremia on admission PLAN: better. Still tachy but may be more indicative as he has been off his bb (already added back by primary team) Resp status ok and could come off O2 later today versus tomorrow; only on O2 to dec O2 consumption Agree with clears and slow advance. Less inflammed and non-toxic. Renal function holding and can add back acei in another day or so post renal recovery Cut IVF in half and dc later tonight as long as daisha po No overt withdrawal but continue to f/u potential Supportive and preventative care as ordered by primary team. Disposition: ICU today and likely floor tomorrow. d/w pt. CCM will sign off. Code Status: Full Critical Care Time: 30min Elisa Mortensen DO
[2016-10-17 16:29] LABS: Urine Bacteria Absent (Absent); Urine Bilirubin Negative (Negative); Urine Glucose 3+(>=500 mg/dL) (Negative); Urine Nitrite Negative (Negative)
[2016-10-17] MEDS ORDERED: Lisinopril TAB* 10 MG PO SCH (21:00)
[2016-10-18] MEDS: Ondansetron INJ* 2 MG/ML VIAL IV PRN ×5 (00:48→21:34)
[2016-10-18] MEDS: HYDROmorphone INJ* 1 MG/ML CARPUJECT SYRINGE IV SLOW PU PRN ×6 (00:48→21:39)
[2016-10-18] MEDS: Heparin VIAL(*) 5000 UNITS/ML VIAL (FIVE THOUSAND) SUBCUT SCH ×3 (05:36→21:28)
[2016-10-18 06:15] LABS: Hematocrit 31 % (42-52); Hemoglobin 10.9 g/dl (14.0-18.0); Mean Corpuscular HGB Conc 35 g/dl (31-36); Mean Corpuscular Hemoglobin 36 pg (27-31); Mean Corpuscular Volume 104 fL (80-94); Mean Platelet Volume 9 um3 (7.4-10.4); Red Blood Count 3.01 10^6/ul (4.0-5.4); Red Cell Distribution Width 13 % (10.5-15); White Blood Count 6.2 10^3/ul (3.5-10.8)
[2016-10-18 06:23] LABS: Comments Flag Yes
[2016-10-18 06:25] LABS: BUN/Creatinine Ratio 12.4 (8-20); Blood Urea Nitrogen 11 mg/dL (6-24); CO2 Carbon Dioxide 25 mmol/L (22-32); Calcium 7.5 mg/dL (8.6-10.3); Chloride 99 mmol/L (101-111); EGFR African American 131.9 (>60); EGFR Non-African American 102.5 (>60); Glucose 165 mg/dL (70-100); Sodium 129 mmol/L (133-145)
--- NOTE | 2016-10-18 08:30 | PN ---
Subjective Date of Service: 10/18/16 Interval History: Pt is feeling better. He continues to have abdominal pain requiring dilaudid though he thinks in general it is improving. He denies any SOB but states it hurts his abdomen to take a deep breath. Objective Active Medications: Acetaminophen (Tylenol Tab*) 650 mg PO Q4H PRN PRN Reason: FEVER/PAIN Al Hydrox/Mg Hydrox/Simethicone (Maalox Plus*) 30 ml PO Q6H PRN PRN Reason: INDIGESTION Last Admin: 10/16/16 17:37 Dose: 30 ml Docusate Sodium (Colace Cap*) 100 mg PO BID PRN PRN Reason: CONSTIPATION Last Admin: 10/16/16 17:37 Dose: 100 mg Heparin Sodium (Porcine) (Heparin Vial(*)) 5,000 units SUBCUT Q8HR [facility] Last Admin: 10/18/16 05:36 Dose: 5,000 units Heparin Sodium (Porcine) (Heparin Flush Picc/Ml/Cvc(*)) 0 ml IV FLUSH 0600, 1800 [facility] PRN Reason: Protocol Last Admin: 10/18/16 05:36 Dose: 2 ml Hydromorphone HCl (Dilaudid Iv*) 1 mg IV SLOW PU Q3H PRN PRN Reason: PAIN Last Admin: 10/18/16 05:35 Dose: 1 mg Lisinopril (Prinivil Tab*) 20 mg PO DAILY [facility] Lorazepam (Ativan Inj*) 2 mg IV PUSH Q2H PRN PRN Reason: AGITATION/PARANOIA Metoprolol Succinate (Toprol Xl Tab*) 50 mg PO DAILY [facility] Last Admin: 10/17/16 09:46 Dose: 50 mg Ondansetron HCl (Zofran Inj*) 4 mg IV Q4H PRN PRN Reason: NAUSEA Last Admin: 10/18/16 05:36 Dose: 4 mg Prochlorperazine Edisylate (Compazine Inj*) 5 mg IV Q6H PRN PRN Reason: NAUSEA/VOMITING Last Admin: 10/17/16 09:58 Dose: 5 mg Senna (Senokot Tab*) 1 tab PO BID PRN PRN Reason: CONSTIPATION Last Admin: 10/16/16 17:37 Dose: 1 tab Ziprasidone (Geodon Im Inj*) 10 mg IM Q8HR PRN PRN Reason: AGITATION Last Admin: 10/16/16 13:31 Dose: 10 mg Vital Signs 10/17/16 10/17/16 10/17/16 09:00 09:59 10:00 Temperature Pulse Rate 134 136 Respiratory 29 35 32 Rate Blood Pressure 161/111 166/101 (mmHg) O2 Sat by Pulse 96 94 Oximetry 10/17/16 10/17/16 10/17/16 11:00 12:00 13:00 Temperature 99.2 F Pulse Rate 117 114 135 Respiratory 19 17 26 Rate Blood Pressure 165/87 159/79 (mmHg) O2 Sat by Pulse 95 95 96 Oximetry 10/17/16 10/17/16 10/17/16 13:10 13:37 13:42 Temperature Pulse Rate 134 121 Respiratory 32 28 Rate Blood Pressure 175/95 (mmHg) O2 Sat by Pulse 96 96 Oximetry 10/17/16 10/17/16 10/17/16 14:00 15:00 15:55 Temperature 97.5 F Pulse Rate 123 110 Respiratory 30 18 Rate Blood Pressure 173/97 155/82 (mmHg) O2 Sat by Pulse 96 95 Oximetry 10/17/16 10/17/16 10/17/16 16:00 16:10 17:00 Temperature Pulse Rate 123 118 107 Respiratory 21 22 20 Rate Blood Pressure 178/101 149/98 (mmHg) O2 Sat by Pulse 97 94 95 Oximetry 10/17/16 10/17/16 10/17/16 18:00 18:32 19:00 Temperature Pulse Rate 121 111 123 Respiratory 34 28 32 Rate Blood Pressure 167/94 173/101 (mmHg) O2 Sat by Pulse 92 92 99 Oximetry 10/17/16 10/17/16 10/17/16 19:48 20:00 20:07 Temperature 98.4 F Pulse Rate 93 116 Respiratory 29 38 Rate Blood Pressure 183/102 175/91 (mmHg) O2 Sat by Pulse 87 92 Oximetry 10/17/16 10/17/16 10/17/16 20:30 20:32 21:00 Temperature Pulse Rate 112 Respiratory 18 20 30 Rate Blood Pressure 161/92 (mmHg) O2 Sat by Pulse 90 Oximetry 10/17/16 10/17/16 10/17/16 22:00 23:00 23:42 Temperature 99.3 F Pulse Rate 105 102 Respiratory 22 19 Rate Blood Pressure 157/84 153/76 (mmHg) O2 Sat by Pulse 97 93 Oximetry 10/18/16 10/18/16 10/18/16 00:00 00:01 00:45 Temperature 99.3 F Pulse Rate 110 105 Respiratory 27 23 16 Rate Blood Pressure 156/78 (mmHg) O2 Sat by Pulse 97 97 Oximetry 10/18/16 10/18/16 10/18/16 00:48 01:00 02:00 Temperature Pulse Rate 105 106 Respiratory 24 30 22 Rate Blood Pressure 149/73 151/82 (mmHg) O2 Sat by Pulse 94 93 Oximetry 10/18/16 10/18/16 10/18/16 03:00 04:00 04:59 Temperature 99.1 F Pulse Rate 103 116 110 Respiratory 24 27 33 Rate Blood Pressure 150/84 160/85 (mmHg) O2 Sat by Pulse 94 94 94 Oximetry 10/18/16 10/18/16 10/18/16 05:00 05:35 06:00 Temperature Pulse Rate 118 Respiratory 18 16 11 Rate Blood Pressure 169/95 (mmHg) O2 Sat by Pulse 94 Oximetry 10/18/16 10/18/16 10/18/16 07:00 07:25 08:00 Temperature 98.9 F Pulse Rate 123 110 Respiratory 28 16 Rate Blood Pressure 164/92 155/78 (mmHg) O2 Sat by Pulse 96 95 Oximetry Oxygen Devices in Use Now: Nasal Cannula - 3L-96% Appearance: Young male sitting up in bed, NAD Eyes: No Scleral Icterus Ears/Nose/Mouth/Throat: Mucous Membranes Moist Respiratory: Symmetrical Chest Expansion and Respiratory Effort, - - decreased breath sounds at the bases Cardiovascular: NL Sounds; No Murmurs; No JVD, No Edema, - - tachycardic but regular Abdominal: - - BS+ soft, mildly distended, tender to palpation in the LUQ, LLQ/ RLQ Extremities: No Clubbing, Cyanosis Skin: No Rash or Ulcers, No Nodules or Sclerosis Neurological: Alert and Oriented x 3 Result Diagrams: 10/18/16 06:00 10/18/16 06:00 Additional Lab and Data: Lab Results 10/15/16 Range/Units 04:20 WBC 19.8 H (3.5-10.8) 10^3/ul RBC 4.83 (4.0-5.4) 10^6/ul Hgb 17.9 (14.0-18.0) g/dl Hct 50 (42-52) % MCV 103 H (80-94) fL MCH 37 H (27-31) pg MCHC 36 (31-36) g/dl RDW 13 (10.5-15) % Plt Count 296 (150-450) 10^3/ul MPV 8 (7.4-10.4) um3 Neut % (Auto) 88.6 H (38-83) % Lymph % (Auto) 5.3 L (25-47) % [place] % (Auto) 5.1 (1-9) % Eos % (Auto) 0 (0-6) % Baso % (Auto) 1.0 (0-2) % Absolute Neuts (auto) 17.5 H (1.5-7.7) 10^3/ul Absolute Lymphs (auto) 1.0 (1.0-4.8) 10^3/ul Absolute Monos (auto) 1.0 H (0-0.8) 10^3/ul Absolute Eos (auto) 0 (0-0.6) 10^3/ul Absolute Basos (auto) 0.2 (0-0.2) 10^3/ul Absolute Nucleated RBC 0.01 10^3/ul Nucleated RBC % 0 Microbiology and Other Data: Microbiology 10/15/16 07:30 Nasal Screen MRSA (PCR)(CHRISTINE) - Final Nasal Mrsa Negative Assess/Plan/Problems-Billing Mr Mei is a 26 yo M who has a h/o alcoholism, dilated cardiomyopathy, HTN and SHRUTHI who presented to the ER with c/o abdominal pain, nausea and vomiting and was admitted for pancreatitis. - Patient Problems (1) Pancreatitis, alcoholic, acute Current Visit: Yes Status: Acute Code(s): K85.20 - ALCOHOL INDUCED ACUTE PANCREATITIS WITHOUT NECROSIS OR INFCT SNOMED Code(s): 412096971 Comment: Pt continues to improve in terms of his pain and VS. Will continue clear liquids for now though I have explained to the patient that if his pain improves further we can advance to full liquids to see how he tolerates them. IVF has stopped. Recheck lipase tomorrow. Will need to recheck triglyceride level closer to d/c. (2) Alcohol withdrawal Current Visit: Yes Status: Acute Code(s): F10.239 - ALCOHOL DEPENDENCE WITH WITHDRAWAL, UNSPECIFIED SNOMED Code(s): 286841561 Comment: No signs of withdrawal at this time. Continue to monitor. (3) Alcoholic hepatitis Current Visit: Yes Status: Acute Code(s): K70.10 - ALCOHOLIC HEPATITIS WITHOUT ASCITES SNOMED Code(s): 511355407 Comment: LFTs continue to improve. Repeat labs tomorrow. (4) Hypocalcemia Current Visit: Yes Status: Acute Code(s): E83.51 - HYPOCALCEMIA SNOMED Code(s): 9321373 Comment: Improving. Monitor intermittently. (5) BOBBY (acute kidney injury) Current Visit: Yes Status: Acute Code(s): N17.9 - ACUTE KIDNEY FAILURE, UNSPECIFIED SNOMED Code(s): 88216743 Comment: Resolved. Monitor as his ACEI has been restarted and I will likely resume lasix soon. (6) Hyponatremia Current Visit: Yes Status: Acute Code(s): E87.1 - HYPO-OSMOLALITY AND HYPONATREMIA SNOMED Code(s): 99569563 Comment: Na worsened today. Will monitor for now. (7) Leukocytosis Current Visit: Yes Status: Acute Code(s): D72.829 - ELEVATED WHITE BLOOD CELL COUNT, UNSPECIFIED SNOMED Code(s): 712817325 Comment: Resolved today without Abx. Continue to monitor. 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 Will need to restart lasix soon. (9) Hypertriglyceridemia Current Visit: Yes Status: Acute Code(s): E78.1 - PURE HYPERGLYCERIDEMIA SNOMED Code(s): 722752417 Comment: The patient's triglyceride level is markedly elevated >4000. His triglyceride level was 273 05/2016. Will need to recheck closer to discharge. (10) HTN (hypertension) Current Visit: Yes Status: Acute Code(s): I10 - ESSENTIAL (PRIMARY) HYPERTENSION SNOMED Code(s): 61702744 Comment: BP is better but still not at goal. Monitor BP now that he will be on his usual home medication regimen. (11) Alcohol abuse Current Visit: Yes Status: Acute Code(s): F10.10 - ALCOHOL ABUSE, UNCOMPLICATED SNOMED Code(s): 55681598 Comment: Social work evaluation. (12) DVT prophylaxis Current Visit: Yes Status: Acute Code(s): OOP6513 - SNOMED Code(s): 904419160 Comment: SQ heparin (13) Full code status Current Visit: Yes Status: Acute Code(s): Z78.9 - OTHER SPECIFIED HEALTH STATUS SNOMED Code(s): 605814806
[2016-10-18] MEDS: Lisinopril TAB* 10 MG PO SCH (08:40)
[2016-10-18] MEDS: Metoprolol Succinate XL TAB* 50 MG PO SCH (08:41)
--- NOTE | 2016-10-18 09:21 | RAD ---
HISTORY: Evaluate for pulmonary edema. Pancreatitis. COMPARISONS: April 27, 2016 VIEWS:1: Single frontal portable view of the chest at 9:00 AM FINDINGS: LINES AND TUBES: A right-sided PICC line is noted with the tip overlying the superior vena cava. CARDIOMEDIASTINAL SILHOUETTE: The cardiomediastinal silhouette is normal for portable technique. PLEURA: There is blunting of left costophrenic angle. LUNG PARENCHYMA: There is confluent alveolar opacification of the left lower lung ABDOMEN: The upper abdomen is clear. There is no subphrenic gas. BONES AND SOFT TISSUES: No bone or soft tissue abnormalities are noted. IMPRESSION: SMALL LEFT PLEURAL EFFUSION WITH LEFT BASILAR ATELECTASIS VERSUS CONSOLIDATION.
[2016-10-18] MEDS: Al Hydrox/Mg Hydrox/Simet LIQ* 30 ML UDC PO PRN (14:52)
[2016-10-19] MEDS: Al Hydrox/Mg Hydrox/Simet LIQ* 30 ML UDC PO PRN (00:27)
[2016-10-19] MEDS: Ondansetron INJ* 2 MG/ML VIAL IV PRN ×5 (01:42→21:04)
[2016-10-19] MEDS: HYDROmorphone INJ* 1 MG/ML CARPUJECT SYRINGE IV SLOW PU PRN ×2 (01:43→09:02)
[2016-10-19] MEDS ORDERED: Cyclobenzaprine TAB* 10 MG PO ONE (02:39)
[2016-10-19] MEDS ORDERED: Cyclobenzaprine TAB* 10 MG ONE (03:05)
[2016-10-19] MEDS: Heparin VIAL(*) 5000 UNITS/ML VIAL (FIVE THOUSAND) SUBCUT SCH ×3 (05:11→22:39)
[2016-10-19] MEDS: Metoprolol Succinate XL TAB* 50 MG PO SCH (09:03)
[2016-10-19] MEDS: Lisinopril TAB* 10 MG PO SCH (09:03)
[2016-10-19] MEDS: HYDROmorphone INJ* 2 MG/ML CARPUJECT SYRINGE IV PRN ×3 (12:39→21:04)
--- NOTE | 2016-10-19 17:23 | PN ---
Subjective Date of Service: 10/19/16 Interval History: Pt is feeling better in terms of his abdominal pain but he states he lumbar back is very painful. He denies any SOB. Objective Active Medications: Acetaminophen (Tylenol Tab*) 650 mg PO Q4H PRN PRN Reason: FEVER/PAIN Al Hydrox/Mg Hydrox/Simethicone (Maalox Plus*) 30 ml PO Q6H PRN PRN Reason: INDIGESTION Last Admin: 10/19/16 00:27 Dose: 30 ml Calcium Carbonate (Tums*) 500 mg PO TID PRN PRN Reason: HEARTBURN Cyclobenzaprine HCl (Flexeril Tab*) 10 mg PO TID PRN PRN Reason: SPASMS Docusate Sodium (Colace Cap*) 100 mg PO BID PRN PRN Reason: CONSTIPATION Last Admin: 10/16/16 17:37 Dose: 100 mg Heparin Sodium (Porcine) (Heparin Vial(*)) 5,000 units SUBCUT Q8HR [facility] Last Admin: 10/19/16 14:16 Dose: 5,000 units Heparin Sodium (Porcine) (Heparin Flush Picc/Ml/Cvc(*)) 0 ml IV FLUSH 0600, 1800 [facility] PRN Reason: Protocol Last Admin: 10/19/16 05:11 Dose: 1 ml Hydromorphone HCl (Dilaudid Iv*) 2 mg IV Q4H PRN PRN Reason: PAIN Last Admin: 10/19/16 17:04 Dose: 2 mg Lisinopril (Prinivil Tab*) 20 mg PO DAILY [facility] Last Admin: 10/19/16 09:03 Dose: 20 mg Metoprolol Succinate (Toprol Xl Tab*) 50 mg PO DAILY [facility] Last Admin: 10/19/16 09:03 Dose: 50 mg Ondansetron HCl (Zofran Inj*) 4 mg IV Q4H PRN PRN Reason: NAUSEA Last Admin: 10/19/16 17:04 Dose: 4 mg Prochlorperazine Edisylate (Compazine Inj*) 5 mg IV Q6H PRN PRN Reason: NAUSEA/VOMITING Last Admin: 10/17/16 09:58 Dose: 5 mg Senna (Senokot Tab*) 1 tab PO BID PRN PRN Reason: CONSTIPATION Last Admin: 10/16/16 17:37 Dose: 1 tab Vital Signs 10/18/16 10/18/16 10/18/16 18:38 19:15 19:38 Temperature 98.7 F Pulse Rate 99 Respiratory 20 16 Rate Blood Pressure 170/96 (mmHg) O2 Sat by Pulse 97 Oximetry 10/18/16 10/18/16 10/18/16 20:00 21:39 22:39 Temperature Pulse Rate Respiratory 16 16 16 Rate Blood Pressure (mmHg) O2 Sat by Pulse Oximetry 10/18/16 10/19/16 10/19/16 23:09 01:43 02:43 Temperature 97.9 F Pulse Rate 106 Respiratory 16 16 16 Rate Blood Pressure 178/85 (mmHg) O2 Sat by Pulse 99 Oximetry 10/19/16 10/19/16 10/19/16 02:45 03:07 07:33 Temperature 98.6 F 97.6 F Pulse Rate 128 117 Respiratory 16 16 16 Rate Blood Pressure 173/99 162/93 (mmHg) O2 Sat by Pulse 94 97 Oximetry 10/19/16 10/19/16 10/19/16 08:00 09:02 10:02 Temperature Pulse Rate Respiratory 18 16 18 Rate Blood Pressure (mmHg) O2 Sat by Pulse Oximetry 10/19/16 10/19/16 10/19/16 11:04 12:39 13:39 Temperature 98.5 F Pulse Rate 125 Respiratory 18 18 16 Rate Blood Pressure 148/92 (mmHg) O2 Sat by Pulse 96 Oximetry 10/19/16 10/19/16 15:51 17:04 Temperature 98.8 F Pulse Rate 103 Respiratory 18 16 Rate Blood Pressure 173/95 (mmHg) O2 Sat by Pulse 100 Oximetry Oxygen Devices in Use Now: None Appearance: Obese young male sitting in a chair, NAD Eyes: No Scleral Icterus Ears/Nose/Mouth/Throat: Mucous Membranes Moist Respiratory: Symmetrical Chest Expansion and Respiratory Effort, Clear to Auscultation - decreased breath sounds at the bases Cardiovascular: NL Sounds; No Murmurs; No JVD, RRR Abdominal: NL Sounds; No Tenderness; No Distention Extremities: No Clubbing, Cyanosis Skin: No Rash or Ulcers, No Nodules or Sclerosis Neurological: Alert and Oriented x 3 Result Diagrams: 10/18/16 06:00 10/18/16 06:00 Additional Lab and Data: Lab Results 10/15/16 Range/Units 04:20 WBC 19.8 H (3.5-10.8) 10^3/ul RBC 4.83 (4.0-5.4) 10^6/ul Hgb 17.9 (14.0-18.0) g/dl Hct 50 (42-52) % MCV 103 H (80-94) fL MCH 37 H (27-31) pg MCHC 36 (31-36) g/dl RDW 13 (10.5-15) % Plt Count 296 (150-450) 10^3/ul MPV 8 (7.4-10.4) um3 Neut % (Auto) 88.6 H (38-83) % Lymph % (Auto) 5.3 L (25-47) % [place] % (Auto) 5.1 (1-9) % Eos % (Auto) 0 (0-6) % Baso % (Auto) 1.0 (0-2) % Absolute Neuts (auto) 17.5 H (1.5-7.7) 10^3/ul Absolute Lymphs (auto) 1.0 (1.0-4.8) 10^3/ul Absolute Monos (auto) 1.0 H (0-0.8) 10^3/ul Absolute Eos (auto) 0 (0-0.6) 10^3/ul Absolute Basos (auto) 0.2 (0-0.2) 10^3/ul Absolute Nucleated RBC 0.01 10^3/ul Nucleated RBC % 0 Microbiology and Other Data: Microbiology 10/15/16 07:30 Nasal Screen MRSA (PCR)(CHRISTINE) - Final Nasal Mrsa Negative Assess/Plan/Problems-Billing Mr Mei is a 26 yo M who has a h/o alcoholism, dilated cardiomyopathy, HTN and SHRUTHI who presented to the ER with c/o abdominal pain, nausea and vomiting and was admitted for pancreatitis. - Patient Problems (1) Pancreatitis, alcoholic, acute Current Visit: Yes Status: Acute Code(s): K85.20 - ALCOHOL INDUCED ACUTE PANCREATITIS WITHOUT NECROSIS OR INFCT SNOMED Code(s): 270215301 Comment: Continued improvement. No pain with eating clears for lunch. Advance to full liquids for dinner. Repeat labs tomorrow. (2) Alcohol withdrawal Current Visit: Yes Status: Acute Code(s): F10.239 - ALCOHOL DEPENDENCE WITH WITHDRAWAL, UNSPECIFIED SNOMED Code(s): 245487334 Comment: No signs of withdrawal at this time. Continue to monitor. (3) Alcoholic hepatitis Current Visit: Yes Status: Acute Code(s): K70.10 - ALCOHOLIC HEPATITIS WITHOUT ASCITES SNOMED Code(s): 687253567 Comment: LFTs continue to improve. Repeat labs tomorrow. (4) Hypocalcemia Current Visit: Yes Status: Acute Code(s): E83.51 - HYPOCALCEMIA SNOMED Code(s): 5735407 Comment: Improving. Monitor intermittently. (5) BOBBY (acute kidney injury) Current Visit: Yes Status: Acute Code(s): N17.9 - ACUTE KIDNEY FAILURE, UNSPECIFIED SNOMED Code(s): 45861335 Comment: Resolved. Recheck labs tomorrow. (6) Hyponatremia Current Visit: Yes Status: Acute Code(s): E87.1 - HYPO-OSMOLALITY AND HYPONATREMIA SNOMED Code(s): 91181158 Comment: Na dropped yesterday. Recheck tomorrow. (7) Leukocytosis Current Visit: Yes Status: Acute Code(s): D72.829 - ELEVATED WHITE BLOOD CELL COUNT, UNSPECIFIED SNOMED Code(s): 085704487 Comment: Resolved. (8) Dilated cardiomyopathy secondary to alcohol Current Visit: Yes Status: Acute Code(s): I42.6 - ALCOHOLIC CARDIOMYOPATHY SNOMED Code(s): 76391427 Comment: He is back on his usual dose of metoprolol XL and lisinopril. Restart lasix tomorrow AM. (9) Hypertriglyceridemia Current Visit: Yes Status: Acute Code(s): E78.1 - PURE HYPERGLYCERIDEMIA SNOMED Code(s): 685567341 Comment: The patient's triglyceride level is markedly elevated >4000. His triglyceride level was 273 05/2016. Will need to recheck closer to discharge. (10) HTN (hypertension) Current Visit: Yes Status: Acute Code(s): I10 - ESSENTIAL (PRIMARY) HYPERTENSION SNOMED Code(s): 18939751 Comment: BP is still uncontrolled. Add amlodipine 5mg daily. (11) Alcohol abuse Current Visit: Yes Status: Acute Code(s): F10.10 - ALCOHOL ABUSE, UNCOMPLICATED SNOMED Code(s): 42931652 Comment: Social work evaluation. (12) DVT prophylaxis Current Visit: Yes Status: Acute Code(s): SMZ0873 - SNOMED Code(s): 655343545 Comment: SQ heparin (13) Full code status Current Visit: Yes Status: Acute Code(s): Z78.9 - OTHER SPECIFIED HEALTH STATUS SNOMED Code(s): 083871018
[2016-10-19] MEDS: amLODIPine TAB* 5 MG PO SCH (17:58)
[2016-10-19] MEDS: Cyclobenzaprine TAB* 10 MG PO PRN ×2 (17:58→21:01)
[2016-10-19] MEDS: Acetaminophen TAB* 325 MG PO PRN (21:01)
[2016-10-20] MEDS: Ondansetron INJ* 2 MG/ML VIAL IV PRN ×2 (00:52→05:16)
[2016-10-20] MEDS: HYDROmorphone INJ* 2 MG/ML CARPUJECT SYRINGE IV PRN ×2 (00:52→05:16)
[2016-10-20] MEDS: Cyclobenzaprine TAB* 10 MG PO PRN (05:14)
[2016-10-20] MEDS: Acetaminophen TAB* 325 MG PO PRN (05:16)
[2016-10-20] MEDS: Senna TAB PO PRN (05:16)
[2016-10-20] MEDS: Docusate CAP* 100 MG PO PRN (05:16)
[2016-10-20 05:17] LABS: Hematocrit 27 % (42-52); Hemoglobin 9.3 g/dl (14.0-18.0); Mean Corpuscular HGB Conc 34 g/dl (31-36); Mean Corpuscular Hemoglobin 36 pg (27-31); Mean Corpuscular Volume 104 fL (80-94); Mean Platelet Volume 9 um3 (7.4-10.4); Red Blood Count 2.59 10^6/ul (4.0-5.4); Red Cell Distribution Width 12 % (10.5-15); White Blood Count 7.3 10^3/ul (3.5-10.8)
[2016-10-20 05:18] LABS: Comments Flag Yes
[2016-10-20 05:19] LABS: Add Diff/Slide Review? Slide Review Added
[2016-10-20 05:23] LABS: BUN/Creatinine Ratio 11.3 (8-20); Calcium 8.3 mg/dL (8.6-10.3); EGFR African American 149.1 (>60); Magnesium 2.3 mg/dL (1.9-2.7); Phosphorus 1.8 mg/dL (2.5-5.0)
[2016-10-20 05:25] LABS: Potassium 3.7 mmol/L (3.5-5.0)
[2016-10-20 05:41] LABS: Immature Granulocytes 13 % (0-9); Metamyelocytes % 2 % (0-2); Myelocytes % 2 % (0-1); Neutrophil % 70 % (38-83)
[2016-10-20 05:42] LABS: Macrocytosis 1+; Polychromasia 1+
[2016-10-20] MEDS: Heparin VIAL(*) 5000 UNITS/ML VIAL (FIVE THOUSAND) SUBCUT SCH ×3 (06:37→21:10)
[2016-10-20] MEDS ORDERED: oxyCODONE TAB* 5 MG TAB PO PRN (09:11)
[2016-10-20] MEDS ORDERED: Metoprolol Succinate XL TAB* 50 MG PO SCH (09:12)
--- NOTE | 2016-10-20 09:52 | PN ---
Subjective Date of Service: 10/20/16 Interval History: Pt is feeling better in terms of his abdominal discomfort though still has quite significant lumbar back discomfort. He states he has been tolerating the full liquids without worsening of his abdominal pain. Had a BM yesterday. He denies SOB. He asks when his lasix can be started back up. Objective Active Medications: Acetaminophen (Tylenol Tab*) 650 mg PO Q4H PRN PRN Reason: FEVER/PAIN Last Admin: 10/20/16 05:16 Dose: 650 mg Al Hydrox/Mg Hydrox/Simethicone (Maalox Plus*) 30 ml PO Q6H PRN PRN Reason: INDIGESTION Last Admin: 10/19/16 00:27 Dose: 30 ml Amlodipine Besylate (Norvasc Tab*) 10 mg PO DAILY [facility] Calcium Carbonate (Tums*) 500 mg PO TID PRN PRN Reason: HEARTBURN Cyclobenzaprine HCl (Flexeril Tab*) 10 mg PO TID PRN PRN Reason: SPASMS Last Admin: 10/20/16 05:14 Dose: 10 mg Docusate Sodium (Colace Cap*) 100 mg PO BID PRN PRN Reason: CONSTIPATION Last Admin: 10/20/16 05:16 Dose: 100 mg Furosemide (Lasix Tab*) 20 mg PO DAILY [facility] Heparin Sodium (Porcine) (Heparin Vial(*)) 5,000 units SUBCUT Q8HR [facility] Last Admin: 10/20/16 06:37 Dose: 5,000 units Heparin Sodium (Porcine) (Heparin Flush Picc/Ml/Cvc(*)) 0 ml IV FLUSH 0600, 1800 [facility] PRN Reason: Protocol Last Admin: 10/20/16 05:23 Dose: Not Given Hydromorphone HCl (Dilaudid Iv*) 2 mg IV Q4H PRN PRN Reason: PAIN Last Admin: 10/20/16 05:16 Dose: 2 mg Lisinopril (Prinivil Tab*) 20 mg PO DAILY [facility] Last Admin: 10/19/16 09:03 Dose: 20 mg Metoprolol Succinate (Toprol Xl Tab*) 75 mg PO DAILY [facility] Ondansetron HCl (Zofran Inj*) 4 mg IV Q4H PRN PRN Reason: NAUSEA Last Admin: 10/20/16 05:16 Dose: 4 mg Oxycodone HCl (Roxycodone Tab*) 5 mg PO Q4H PRN PRN Reason: pain 1-5 Oxycodone HCl (Roxycodone Tab*) 10 mg PO Q4H PRN PRN Reason: pain 6-10 Potassium Phos/Sodium Phos (Neutra Phos 250 Mg Dylan*) 250 mg PO BID NICKY Stop: 10/20/16 21:01 Prochlorperazine Edisylate (Compazine Inj*) 5 mg IV Q6H PRN PRN Reason: NAUSEA/VOMITING Last Admin: 10/17/16 09:58 Dose: 5 mg Senna (Senokot Tab*) 1 tab PO BID PRN PRN Reason: CONSTIPATION Last Admin: 10/20/16 05:16 Dose: 1 tab Vital Signs 10/19/16 10/19/16 10/19/16 10:02 11:04 12:39 Temperature 98.5 F Pulse Rate 125 Respiratory 18 18 18 Rate Blood Pressure 148/92 (mmHg) O2 Sat by Pulse 96 Oximetry 10/19/16 10/19/16 10/19/16 13:39 15:51 17:04 Temperature 98.8 F Pulse Rate 103 Respiratory 16 18 16 Rate Blood Pressure 173/95 (mmHg) O2 Sat by Pulse 100 Oximetry 10/19/16 10/19/16 10/19/16 17:58 18:04 19:58 Temperature Pulse Rate Respiratory 18 16 16 Rate Blood Pressure (mmHg) O2 Sat by Pulse Oximetry 10/19/16 10/19/16 10/19/16 20:00 21:01 21:04 Temperature Pulse Rate Respiratory 16 16 16 Rate Blood Pressure (mmHg) O2 Sat by Pulse Oximetry 10/19/16 10/19/16 10/20/16 22:04 23:01 00:52 Temperature Pulse Rate Respiratory 16 16 16 Rate Blood Pressure (mmHg) O2 Sat by Pulse Oximetry 10/20/16 10/20/16 10/20/16 01:05 01:52 04:00 Temperature 98.9 F 98.9 F Pulse Rate 111 130 Respiratory 16 16 16 Rate Blood Pressure 157/79 175/100 (mmHg) O2 Sat by Pulse 93 97 Oximetry 10/20/16 10/20/16 10/20/16 05:14 05:16 06:16 Temperature Pulse Rate Respiratory 16 6 16 Rate Blood Pressure (mmHg) O2 Sat by Pulse Oximetry 10/20/16 07:14 Temperature 98.9 F Pulse Rate 114 Respiratory Rate Blood Pressure 178/91 (mmHg) O2 Sat by Pulse 93 Oximetry Oxygen Devices in Use Now: None Appearance: Young male lying in bed, NAD Eyes: No Scleral Icterus Ears/Nose/Mouth/Throat: Mucous Membranes Moist Respiratory: Symmetrical Chest Expansion and Respiratory Effort, Clear to Auscultation Cardiovascular: NL Sounds; No Murmurs; No JVD, - - mildly tachycardic but regular Abdominal: NL Sounds; No Tenderness; No Distention Extremities: No Clubbing, Cyanosis Skin: No Rash or Ulcers, No Nodules or Sclerosis Neurological: Alert and Oriented x 3 Result Diagrams: 10/20/16 04:40 10/20/16 04:40 Additional Lab and Data: Lab Results 10/15/16 Range/Units 04:20 WBC 19.8 H (3.5-10.8) 10^3/ul RBC 4.83 (4.0-5.4) 10^6/ul Hgb 17.9 (14.0-18.0) g/dl Hct 50 (42-52) % MCV 103 H (80-94) fL MCH 37 H (27-31) pg MCHC 36 (31-36) g/dl RDW 13 (10.5-15) % Plt Count 296 (150-450) 10^3/ul MPV 8 (7.4-10.4) um3 Neut % (Auto) 88.6 H (38-83) % Lymph % (Auto) 5.3 L (25-47) % [place] % (Auto) 5.1 (1-9) % Eos % (Auto) 0 (0-6) % Baso % (Auto) 1.0 (0-2) % Absolute Neuts (auto) 17.5 H (1.5-7.7) 10^3/ul Absolute Lymphs (auto) 1.0 (1.0-4.8) 10^3/ul Absolute Monos (auto) 1.0 H (0-0.8) 10^3/ul Absolute Eos (auto) 0 (0-0.6) 10^3/ul Absolute Basos (auto) 0.2 (0-0.2) 10^3/ul Absolute Nucleated RBC 0.01 10^3/ul Nucleated RBC % 0 Microbiology and Other Data: Microbiology 10/15/16 07:30 Nasal Screen MRSA (PCR)(CHRISTINE) - Final Nasal Mrsa Negative Assess/Plan/Problems-Billing Mr Mei is a 26 yo M who has a h/o alcoholism, dilated cardiomyopathy, HTN and SHRUTHI who presented to the ER with c/o abdominal pain, nausea and vomiting and was admitted for pancreatitis. - Patient Problems (1) Pancreatitis, alcoholic, acute Current Visit: Yes Status: Acute Code(s): K85.20 - ALCOHOL INDUCED ACUTE PANCREATITIS WITHOUT NECROSIS OR INFCT SNOMED Code(s): 305610130 Comment: Continued improvement. Advance diet to heart healthy no caffeine. Lipase has trended down but is still not normal. Monitor for worsened abdominal pain with advancing the diet. Possibly home tomorrow. (2) Alcohol withdrawal Current Visit: Yes Status: Acute Code(s): F10.239 - ALCOHOL DEPENDENCE WITH WITHDRAWAL, UNSPECIFIED SNOMED Code(s): 403316855 Comment: No signs of withdrawal. (3) Alcoholic hepatitis Current Visit: Yes Status: Acute Code(s): K70.10 - ALCOHOLIC HEPATITIS WITHOUT ASCITES SNOMED Code(s): 731913868 Comment: LFTs continue to improve. Repeat labs tomorrow. (4) Hypocalcemia Current Visit: Yes Status: Acute Code(s): E83.51 - HYPOCALCEMIA SNOMED Code(s): 4838408 Comment: Resolved. (5) BOBBY (acute kidney injury) Current Visit: Yes Status: Acute Code(s): N17.9 - ACUTE KIDNEY FAILURE, UNSPECIFIED SNOMED Code(s): 76943791 Comment: Resolved. (6) Hyponatremia Current Visit: Yes Status: Acute Code(s): E87.1 - HYPO-OSMOLALITY AND HYPONATREMIA SNOMED Code(s): 48056668 Comment: Na stable today. Continue to monitor. Will repeat labs tomorrow as he will resume his usual home dose of lasix this AM. (7) Leukocytosis Current Visit: Yes Status: Acute Code(s): D72.829 - ELEVATED WHITE BLOOD CELL COUNT, UNSPECIFIED SNOMED Code(s): 981409395 Comment: Resolved. (8) Dilated cardiomyopathy secondary to alcohol Current Visit: Yes Status: Acute Code(s): I42.6 - ALCOHOLIC CARDIOMYOPATHY SNOMED Code(s): 62782060 Comment: Continue metoprolol XL (increase dose due to persistent tachycardia and HTN) and lisinopril. Ashley resumed this AM. He will need to follow up with Dr. Montiel in the near future. Encourage abstinence from EtOH. (9) Hypertriglyceridemia Current Visit: Yes Status: Acute Code(s): E78.1 - PURE HYPERGLYCERIDEMIA SNOMED Code(s): 678229777 Comment: Repeat triglyceride level tomorrow. (10) HTN (hypertension) Current Visit: Yes Status: Acute Code(s): I10 - ESSENTIAL (PRIMARY) HYPERTENSION SNOMED Code(s): 92105827 Comment: BP is uncontrolled. Increase metoprolol XL to 75mg daily and increase amlodipine to 10mg daily. (11) Alcohol abuse Current Visit: Yes Status: Acute Code(s): F10.10 - ALCOHOL ABUSE, UNCOMPLICATED SNOMED Code(s): 53201894 Comment: Social work saw the patient and gave info on AA and CARS. Encourage abstaining from EtOH. (12) DVT prophylaxis Current Visit: Yes Status: Acute Code(s): [id number] - SNOMED Code(s): 880038638 Comment: SQ heparin (13) Full code status Current Visit: Yes Status: Acute Code(s): Z78.9 - OTHER SPECIFIED HEALTH STATUS SNOMED Code(s): 233583592
[2016-10-20 10:16] LABS: Albumin 2.7 g/dL (3.2-5.2); Globulin 2.9 g/dL (2-4); Total Bilirubin 0.9 mg/dL (0.2-1.0); Total Protein 5.6 g/dL (6.4-8.9)
[2016-10-20] MEDS: Potassium & Sodium Phos 250MG* = 1 PACKET PO SCH ×2 (10:34→21:10)
[2016-10-20] MEDS: Al Hydrox/Mg Hydrox/Simet LIQ* 30 ML UDC PO PRN ×3 (10:34→23:09)
[2016-10-20] MEDS: Ketorolac INJ* 30 MG/ML 1 ML VIAL IV PUSH PRN ×3 (10:34→23:09)
[2016-10-20] MEDS: Lisinopril TAB* 10 MG PO SCH (10:34)
[2016-10-20] MEDS: oxyCODONE TAB* 5 MG TAB PO PRN ×3 (10:35→19:34)
[2016-10-20] MEDS: Furosemide TAB* 20 MG PO SCH (10:35)
--- NOTE | 2016-10-20 10:38 | RAD ---
Indication: Chronic low back pain. Currently inpatient for acute pancreatitis. Comparison: March 15, 2017 CT. Technique: AP, lateral, and oblique views lumbar sacral spine. Report: Transitional segment at the lumbar sacral junction most consistent with RIGHT walter-lumbarization of S1. Negative for fracture or spondylolysis. Negative for osteolysis or other focal osseous lesion. Preserved disc spaces. Unremarkable paraspinal soft tissue contours. IMPRESSION: Variant transitional segment at the lumbar sacral junction. No significant degenerative arthropathy evident. No acute abnormality evident.
[2016-10-20] MEDS: amLODIPine TAB* 5 MG PO SCH ×2 (10:42→11:30)
[2016-10-20 11:15] LABS: Direct Bilirubin 0.4 mg/dL (0.03-0.18); Indirect Bilirubin 0.5 mg/dL (0.3-1.0)
[2016-10-20] MEDS: Metoprolol Succinate XL TAB* 50 MG PO SCH (11:30)
[2016-10-20] MEDS: Calcium Carbonate CHEW TAB* 500 MG (TUMS) PO PRN ×2 (15:35→19:33)
[2016-10-21] MEDS: oxyCODONE TAB* 5 MG TAB PO PRN ×2 (02:05→08:55)
[2016-10-21] MEDS: Calcium Carbonate CHEW TAB* 500 MG (TUMS) PO PRN ×2 (02:09→08:53)
[2016-10-21] MEDS: Al Hydrox/Mg Hydrox/Simet LIQ* 30 ML UDC PO PRN (05:14)
[2016-10-21] MEDS: Ketorolac INJ* 30 MG/ML 1 ML VIAL IV PUSH PRN (05:14)
[2016-10-21] MEDS: Heparin VIAL(*) 5000 UNITS/ML VIAL (FIVE THOUSAND) SUBCUT SCH (05:19)
[2016-10-21] MEDS: Lisinopril TAB* 10 MG PO SCH (08:54)
[2016-10-21] MEDS: Furosemide TAB* 20 MG PO SCH (08:54)
[2016-10-21] MEDS: amLODIPine TAB* 5 MG PO SCH (08:54)
[2016-10-21 08:56] VITALS: BP 151/91
[2016-10-21] MEDS ORDERED: Metoprolol Succinate XL TAB* 25 MG PO SCH (09:00)
--- NOTE | 2016-10-21 10:30 | PN ---
Subjective Date of Service: 10/21/16 Interval History: Pt is feeling well. No significant pain with eating the regular diet. He is anxious to go home. He continues to have back pain and states the oxycodone wears off at about hr 3. Objective Active Medications: Acetaminophen (Tylenol Tab*) 650 mg PO Q4H PRN PRN Reason: FEVER/PAIN Last Admin: 10/20/16 05:16 Dose: 650 mg Al Hydrox/Mg Hydrox/Simethicone (Maalox Plus*) 30 ml PO Q6H PRN PRN Reason: INDIGESTION Last Admin: 10/21/16 05:14 Dose: 30 ml Amlodipine Besylate (Norvasc Tab*) 10 mg PO DAILY [facility] Last Admin: 10/21/16 08:54 Dose: 10 mg Calcium Carbonate (Tums*) 500 mg PO TID PRN PRN Reason: HEARTBURN Last Admin: 10/21/16 08:53 Dose: 500 mg Cyclobenzaprine HCl (Flexeril Tab*) 10 mg PO TID PRN PRN Reason: SPASMS Last Admin: 10/20/16 05:14 Dose: 10 mg Docusate Sodium (Colace Cap*) 100 mg PO BID PRN PRN Reason: CONSTIPATION Last Admin: 10/20/16 05:16 Dose: 100 mg Furosemide (Lasix Tab*) 20 mg PO DAILY [facility] Last Admin: 10/21/16 08:54 Dose: 20 mg Heparin Sodium (Porcine) (Heparin Vial(*)) 5,000 units SUBCUT Q8HR [facility] Last Admin: 10/21/16 05:19 Dose: 5,000 units Heparin Sodium (Porcine) (Heparin Flush Picc/Ml/Cvc(*)) 0 ml IV FLUSH 0600, 1800 [facility] PRN Reason: Protocol Last Admin: 10/21/16 05:17 Dose: 2 ml Hydromorphone HCl (Dilaudid Iv*) 2 mg IV Q4H PRN PRN Reason: PAIN Last Admin: 10/20/16 05:16 Dose: 2 mg Ketorolac Tromethamine (Toradol Inj*) 30 mg IV PUSH Q6H PRN PRN Reason: PAIN Last Admin: 10/21/16 05:14 Dose: 30 mg Lisinopril (Prinivil Tab*) 20 mg PO DAILY [facility] Last Admin: 10/21/16 08:54 Dose: 20 mg Metoprolol Succinate (Toprol Xl Tab*) 75 mg PO DAILY [facility] Last Admin: 10/21/16 08:55 Dose: 75 mg Ondansetron HCl (Zofran Inj*) 4 mg IV Q4H PRN PRN Reason: NAUSEA Last Admin: 10/20/16 05:16 Dose: 4 mg Oxycodone HCl (Roxycodone Tab*) 5 mg PO Q4H PRN PRN Reason: pain 1-5 Oxycodone HCl (Roxycodone Tab*) 10 mg PO Q4H PRN PRN Reason: pain 6-10 Last Admin: 10/21/16 08:55 Dose: 10 mg Prochlorperazine Edisylate (Compazine Inj*) 5 mg IV Q6H PRN PRN Reason: NAUSEA/VOMITING Last Admin: 10/17/16 09:58 Dose: 5 mg Senna (Senokot Tab*) 1 tab PO BID PRN PRN Reason: CONSTIPATION Last Admin: 10/20/16 05:16 Dose: 1 tab Vital Signs 10/20/16 10/20/16 10/20/16 10:35 10:51 12:35 Temperature 98.6 F Pulse Rate 108 Respiratory 18 18 Rate Blood Pressure 177/95 (mmHg) O2 Sat by Pulse 94 Oximetry 10/20/16 10/20/16 10/20/16 15:34 16:34 17:34 Temperature 99.6 F Pulse Rate 109 Respiratory 18 18 16 Rate Blood Pressure 164/90 (mmHg) O2 Sat by Pulse 95 Oximetry 10/20/16 10/20/16 10/20/16 19:34 20:00 21:34 Temperature Pulse Rate Respiratory 18 18 18 Rate Blood Pressure (mmHg) O2 Sat by Pulse Oximetry 10/20/16 10/21/16 10/21/16 23:50 02:05 04:05 Temperature 99.6 F Pulse Rate 115 Respiratory 18 18 18 Rate Blood Pressure 160/85 (mmHg) O2 Sat by Pulse 94 Oximetry 10/21/16 10/21/16 10/21/16 07:26 08:00 08:55 Temperature 99.0 F Pulse Rate 111 Respiratory 16 18 18 Rate Blood Pressure 151/91 (mmHg) O2 Sat by Pulse 96 Oximetry Oxygen Devices in Use Now: None Appearance: Young male lying in bed, NAD Eyes: No Scleral Icterus Ears/Nose/Mouth/Throat: Mucous Membranes Moist Respiratory: Symmetrical Chest Expansion and Respiratory Effort, Clear to Auscultation Cardiovascular: NL Sounds; No Murmurs; No JVD, No Edema, - - tachycardic but regular Abdominal: NL Sounds; No Tenderness; No Distention Extremities: No Clubbing, Cyanosis Skin: No Rash or Ulcers, No Nodules or Sclerosis Neurological: Alert and Oriented x 3 Result Diagrams: 10/20/16 04:40 10/20/16 04:40 Additional Lab and Data: Lab Results 10/15/16 Range/Units 04:20 WBC 19.8 H (3.5-10.8) 10^3/ul RBC 4.83 (4.0-5.4) 10^6/ul Hgb 17.9 (14.0-18.0) g/dl Hct 50 (42-52) % MCV 103 H (80-94) fL MCH 37 H (27-31) pg MCHC 36 (31-36) g/dl RDW 13 (10.5-15) % Plt Count 296 (150-450) 10^3/ul MPV 8 (7.4-10.4) um3 Neut % (Auto) 88.6 H (38-83) % Lymph % (Auto) 5.3 L (25-47) % [place] % (Auto) 5.1 (1-9) % Eos % (Auto) 0 (0-6) % Baso % (Auto) 1.0 (0-2) % Absolute Neuts (auto) 17.5 H (1.5-7.7) 10^3/ul Absolute Lymphs (auto) 1.0 (1.0-4.8) 10^3/ul Absolute Monos (auto) 1.0 H (0-0.8) 10^3/ul Absolute Eos (auto) 0 (0-0.6) 10^3/ul Absolute Basos (auto) 0.2 (0-0.2) 10^3/ul Absolute Nucleated RBC 0.01 10^3/ul Nucleated RBC % 0 Microbiology and Other Data: Microbiology 10/15/16 07:30 Nasal Screen MRSA (PCR)(CHRISTINE) - Final Nasal Mrsa Negative Assess/Plan/Problems-Billing Mr Mei is a 26 yo M who has a h/o alcoholism, dilated cardiomyopathy, HTN and SHRUTHI who presented to the ER with c/o abdominal pain, nausea and vomiting and was admitted for pancreatitis. - Patient Problems (1) Pancreatitis, alcoholic, acute Current Visit: Yes Status: Acute Code(s): K85.20 - ALCOHOL INDUCED ACUTE PANCREATITIS WITHOUT NECROSIS OR INFCT SNOMED Code(s): 545833996 Comment: Clinically the patient is doing much better. He has tolerated regular food since last evening. Will plan on d/cing the patient home today with oxycodone for pain control. He will need to follow up with his PCP in the near future to ensure he remains symptom free and that his tachycardia that has been persistent improves. (2) Alcohol withdrawal Current Visit: Yes Status: Acute Code(s): F10.239 - ALCOHOL DEPENDENCE WITH WITHDRAWAL, UNSPECIFIED SNOMED Code(s): 527727260 Comment: No signs of withdrawal. (3) Alcoholic hepatitis Current Visit: Yes Status: Acute Code(s): K70.10 - ALCOHOLIC HEPATITIS WITHOUT ASCITES SNOMED Code(s): 169482828 Comment: LFTs continue to improve. Follow up labs as outpatient. (4) Hypocalcemia Current Visit: Yes Status: Acute Code(s): E83.51 - HYPOCALCEMIA SNOMED Code(s): 7779581 Comment: Resolved. (5) BOBBY (acute kidney injury) Current Visit: Yes Status: Acute Code(s): N17.9 - ACUTE KIDNEY FAILURE, UNSPECIFIED SNOMED Code(s): 83532241 Comment: Resolved. (6) Hyponatremia Current Visit: Yes Status: Acute Code(s): E87.1 - HYPO-OSMOLALITY AND HYPONATREMIA SNOMED Code(s): 26350054 Comment: Repeat labs are pending. (7) Leukocytosis Current Visit: Yes Status: Acute Code(s): D72.829 - ELEVATED WHITE BLOOD CELL COUNT, UNSPECIFIED SNOMED Code(s): 714982965 Comment: Resolved. (8) Dilated cardiomyopathy secondary to alcohol Current Visit: Yes Status: Acute Code(s): I42.6 - ALCOHOLIC CARDIOMYOPATHY SNOMED Code(s): 03133084 Comment: Continue metoprolol XL and lisinopril and Lasix. He will need to follow up with Dr. Montiel in the near future. Encourage abstinence from EtOH. (9) Hypertriglyceridemia Current Visit: Yes Status: Acute Code(s): E78.1 - PURE HYPERGLYCERIDEMIA SNOMED Code(s): 204089364 Comment: Repeat level is pending. (10) HTN (hypertension) Current Visit: Yes Status: Acute Code(s): I10 - ESSENTIAL (PRIMARY) HYPERTENSION SNOMED Code(s): 17661936 Comment: BP remains moderately elevated. Continue current medication regimen and pt will follow up with Dr. López next week for further adjustments. (11) Alcohol abuse Current Visit: Yes Status: Acute Code(s): F10.10 - ALCOHOL ABUSE, UNCOMPLICATED SNOMED Code(s): 55609151 Comment: Social work saw the patient and gave info on AA and CARS. Encourage abstaining from EtOH. (12) DVT prophylaxis Current Visit: Yes Status: Acute Code(s): IVE8762 - SNOMED Code(s): 181926033 Comment: SQ heparin (13) Full code status Current Visit: Yes Status: Acute Code(s): Z78.9 - OTHER SPECIFIED HEALTH STATUS SNOMED Code(s): 464387182 Status and Disposition: d/c home
[2016-10-21 10:32] LABS: Calcium 8.4 mg/dL (8.6-10.3); EGFR African American 131.9 (>60); EGFR Non-African American 102.5 (>60)
[2016-10-21 10:42] LABS: Potassium 3.6 mmol/L (3.5-5.0)
--- NOTE | 2016-10-22 05:10 | DS ---
DISCHARGE SUMMARY: DATE OF ADMISSION: 10/15/16 DATE OF DISCHARGE: 10/21/16 PRIMARY CARE PROVIDER: Dr. López SOLAR SALES ADVISOR: Dr. Montiel PRINCIPAL DIAGNOSES: 1. Alcoholic pancreatitis. 2. Alcoholic hepatitis. 3. Alcohol-induced cardiomyopathy. SECONDARY DIAGNOSES: 1. Depression. 2. Hypertension. DISCHARGE MEDICATIONS: 1. Aspirin 81 mg p.o. daily. 2. Multivitamin one tab p.o. daily. 3. Lasix 20 mg p.o. daily. 4. Sertraline 25 mg p.o. daily. 5. Potassium chloride 10 mEq p.o. daily. 6. Lisinopril 20 mg p.o. daily. 7. Oxycodone 5 to 10 mg p.o. q.3 to 4 hours p.r.n. pain. 8. Metoprolol XL 75 mg p.o. daily. 9. Ibuprofen 600 mg p.o. q.6 hours p.r.n. pain. 10. Flexeril 10 mg p.o. t.i.d. p.r.n. spasm. 11. Amlodipine 10 mg p.o. daily. 12. Maalox 30 mL p.o. q.6 hours p.r.n. indigestion. HOSPITAL COURSE: Mr. Mei is a 26-year-old male who has a known longstanding history of alcoholism who has been diagnosed with presumed alcoholic cardiomyopathy, who presents to the emergency room with complaints of abdominal pain. The patient drinks heavily on days prior to when he is off and still heavily on days prior to when he needs to work; however, less vodka, more beer on those days. The patient was found to have labs consistent with pancreatitis. The CT scan done on admission shows evidence of pancreatitis. Abdominal ultrasound revealed hepatomegaly with fatty infiltration of the liver and no cholelithiasis. The patient was admitted to the intensive care unit for management of his alcoholic pancreatitis. The patient slowly improved from this. His diet was advanced from n.p.o. to heart healthy. He has been tolerating the heart healthy diet without any exacerbation of pain. The patient was tachycardic during his entire hospitalization. I suspect this was related to his pancreatitis. The patient was resumed on his usual metoprolol dose; however, this was then increased slightly to 75 mg daily. Despite the increase in this metoprolol, the patient remains mildly tachycardic. He will need to follow up with his primary care provider to make further adjustments in his medication regimen. The patient has been explained that he needs to completely abstain from alcohol to prevent this from occurring again. The patient was felt to potentially have alcohol withdrawal early on during his hospitalization. He is now doing well without any signs of withdrawal. He met with Social Work, who gave him information on AA and CARS. The patient seems motivated to quit drinking at this time. The patient was found to have acute kidney injury on admission. This has now resolved after aggressive IV fluid hydration. He had issues with hyponatremia, hypocalcemia, and hypophosphatemia during his stay. These have all improved. The patient was also found to have a marked leukocytosis on admission, but this too improved without antibiotics. The patient carries a history of dilated cardiomyopathy likely secondary to alcohol use. The patient is being maintained on his usual home medication regimen including his diuretic. The patient should follow up with Dr. Montiel for further management of this disease process. Again, the patient has been encouraged to abstain from drinking alcohol. The patient's blood pressure was uncontrolled during this hospitalization. Many adjustments have been made to his blood pressure medication regimen. His metoprolol dose was increased. His lisinopril dose has remained the same and amlodipine has been added and increased. The patient's blood pressure is still not at goal, so he will need to follow up with his primary care provider for further adjustments on this. FOLLOWUP CONCERNS: The patient is being discharged home today, 10/21/16. He is to follow up with Dr. López on 10/27/16 at 2.30 p.m. ACTIVITY LEVEL: As tolerated. DIET: Low fat, no added salt. CONDITION ON DISCHARGE: Stable. Thirty-five minutes was spent discharging this patient. CC: Dr. López; Dr. Montiel* [id number]/[facility] #: [id number] [facility]
== END 2016-10-21 13:15 | disposition home or self-care (01) | DRG 282 ==
LOC: ED 03:59 → ICU 06:18 → MED 10-18 10:47
PROVIDERS: ADMIT Pediatrics; ATTEND Hospitalist
PROC: 02HV33Z Insertion of Infusion Device into Superior Vena Cava, Percutaneous Approach (ICD-10-PCS; principal; 2016-10-18)
DX: K85.20 Alcohol induced acute pancreatitis without necrosis or infection (principal); G93.41 Metabolic encephalopathy; N17.9 Acute kidney failure, unspecified; E87.2 Acidosis; I42.6 Alcoholic cardiomyopathy; I11.0 Hypertensive heart disease with heart failure; I50.9 Heart failure, unspecified; E83.39 Other disorders of phosphorus metabolism; F10.239 Alcohol dependence with withdrawal, unspecified; E87.1 Hypo-osmolality and hyponatremia; E66.01 Morbid (severe) obesity due to excess calories; F32.9 Major depressive disorder, single episode, unspecified; Z82.49 Family history of ischemic heart disease and other diseases of the circulatory system; Z80.1 Family history of malignant neoplasm of trachea, bronchus and lung; G47.33 Obstructive sleep apnea (adult) (pediatric); E78.1 Pure hyperglyceridemia; Y90.9 Presence of alcohol in blood, level not specified; K70.10 Alcoholic hepatitis without ascites; E83.51 Hypocalcemia; D72.829 Elevated white blood cell count, unspecified; K72.90 Hepatic failure, unspecified without coma; Z79.82 Long term (current) use of aspirin; K76.0 Fatty (change of) liver, not elsewhere classified; Z68.37 Body mass index [BMI] 37.0-37.9, adult
CPT/HCPCS: 36415; 71010; 72110; 74177; 76705; 80048; 80053; 80076; 80320; 81003; 81015; 82140; 83036; 83605; 83690; 83735; 84100; 84478; 84484; 85025; 85027; 85610; 85730; 86140; 87641; 93005; 94760; A9270-GY; C1751; G0480; J0610; J0780; J1170; J1644; J1885; J2060; J2270; J2405; J3411; J3475; J3486; J3490; Q9967

== ENCOUNTER 2016-11-03 16:17 | Emergency (ER) | payer OTHER ==
[2016-11-03 16:36] VITALS: BP 130/89
[2016-11-03] MEDS ORDERED: Lidocaine 2% W/EPI 1:100,000* 20 ML MDV ONE (16:57)
--- NOTE | 2016-11-03 17:16 | UC ---
Skin Complaint HPI - HPI Summary HPI Summary: Had large, painful lump at top of gluteal cleft for several days, started draining spontaneously at 2am and has partial relief. Saw Dr. López today, he advised pt to come here for I&D and packing. Pt denies fever, though pulse is not usually high. No caffeine or cold medicines today. - History of Current Complaint Chief Complaint: UCSkin Time Seen by Provider: 11/03/16 16:40 Stated Complaint: SORE ON TAILBONE Hx Obtained From: Patient Onset/Duration: Gradual Onset, Lasting Days Timing: Constant Onset Severity: Moderate Current Severity: Mild Location: Other - pilonidal Character: Pain, Redness, Raised, Painful Alleviating: Other - drainage Associated Signs & Symptoms: Positive: Drainage - Allergy/Home Medications Allergies/Adverse Reactions: Allergies Allergy/AdvReac Type Severity Reaction Status Date / Time No Known Allergies Allergy Verified 04/27/16 15:18 Home Medications: Home Medications Acetaminophen [Acetaminophen Extra Stren] 650 mg PO 11/03/16 [History] Review of Systems Constitutional: Negative Skin: Other - draining lump on bottom Eyes: Negative ENT: Negative Respiratory: Negative Cardiovascular: Negative Gastrointestinal: Negative Genitourinary: Negative Motor: Negative Neurovascular: Negative Musculoskeletal: Negative Neurological: Negative Psychological: Negative All Other Systems Reviewed And Are Negative: Yes PMH/Surg Hx/FS Hx/Imm Hx Endocrine History Of: Denies: Diabetes, Thyroid Disease Cardiovascular History Of: Reports: Congestive Heart Failure Denies: Cardiac Disorders, Hypertension Respiratory History Of: Denies: COPD, Asthma GI/ History Of: Denies: Ulcer, Renal Disease - Surgical History Surgical History: Yes Surgery Procedure, Year, and Place: inguinal hernia repair 2011. birthmark removal from back - Family History Known Family History: Negative: Blood Disorder - Social History Alcohol Use: None Alcohol Amount: 2-5 drinks/day Substance Use Type: None Smoking Status (MU): Never Smoked Tobacco - Immunization History Most Recent Influenza Vaccination: fall 2015 Most Recent Tetanus Shot: unknown Most Recent Pneumonia Vaccination: none Physical Exam Triage Information Reviewed: Yes Appearance: Well-Appearing, No Pain Distress, Well-Nourished Vital Signs: Initial Vital Signs Temp 97.7 F 11/03/16 16:31 Pulse 133 11/03/16 16:31 Resp 18 11/03/16 16:31 BP 130/89 11/03/16 16:31 Pulse Ox 100 11/03/16 16:31 Vital Signs Reviewed: Yes Eye Exam: Normal Eyes: Positive: Conjunctiva Clear ENT Exam: Normal ENT: Positive: Normal ENT inspection, Hearing grossly normal, Pharynx normal, TMs normal Dental Exam: Normal Neck exam: Normal Neck: Positive: Supple, Nontender, No Lymphadenopathy Respiratory Exam: Normal Respiratory: Positive: Chest non-tender, Lungs clear, Normal breath sounds, No respiratory distress, No accessory muscle use Cardiovascular: Positive: Tachycardia Musculoskeletal Exam: Normal Neurological Exam: Normal Psychological Exam: Normal Skin Exam: Other - draining abscess in cleft Course/Dx - Diagnoses Provider Diagnoses: pilonidal abscess incision and drainage with packing Procedures - Incision and Drainage Site: pilonidal Anesthesia: Local, Lidocaine - 2% with epi, 2mL Instrument(s): Scalpel, Other - mod pus return Packing: Gauze Discharge - Discharge Plan Condition: Stable Disposition: HOME Patient Education Materials: Pilonidal Cyst (GEN), Abscess Incision and Drainage (ED) Referrals: Duc López MD [Primary Care Provider] - Additional Instructions: Apply warmth to the area frequently -- keep it dry for the first 24 hours, then you can remove the packing strip and start using soaks and baths. Follow up with Dr. López this Wednesday as already scheduled. If you have fever over 100.5, increasing pain, or severe symptoms before then, please return here or go to the emergency department.
== END 2016-11-03 17:34 | disposition home or self-care (01) ==
LOC: UCEAST 16:17
DX: L05.01 Pilonidal cyst with abscess (principal)
CPT/HCPCS: 10080; 99211; G0463

== ENCOUNTER 2017-01-16 08:25 | Inpatient (IN) | payer OTHER ==
[2017-01-16] MEDS ORDERED: Thiamine IV* 100 MG, Folic Acid IV* 1 MG, Multiple Vitamin IV ADULT* 10 ML, Magnesium S... IV ONE ×5 (08:34)
[2017-01-16] MEDS ORDERED: Ondansetron INJ* 2 MG/ML VIAL IV ONE (08:38)
[2017-01-16] MEDS ORDERED: LORazepam INJ* 2 MG/ML 1 ML VIAL ONE ×2 (09:07→09:59)
[2017-01-16 09:17] LABS: Comments Flag Yes; Hematocrit 49 % (42-52); Hemoglobin 16.7 g/dl (14.0-18.0); Mean Corpuscular HGB Conc 34 g/dl (31-36); Mean Corpuscular Hemoglobin 33 pg (27-31); Mean Corpuscular Volume 94 fL (80-94); Mean Platelet Volume 8 um3 (7.4-10.4); Red Blood Count 5.15 10^6/ul (4.0-5.4); Red Cell Distribution Width 18 % (10.5-15); White Blood Count 24.6 10^3/ul (3.5-10.8)
[2017-01-16 09:19] LABS: Add Diff/Slide Review? Slide Review Added
[2017-01-16 09:20] LABS: ALT 51 U/L (7-52); Albumin 4.6 g/dL (3.2-5.2); Alkaline Phosphatase 98 U/L (34-104); Amylase 65 U/L (29-103); BUN/Creatinine Ratio 4.9 (8-20); Blood Urea Nitrogen 7 mg/dL (6-24); CO2 Carbon Dioxide 19 mmol/L (22-32); Calcium 9.9 mg/dL (8.6-10.3); Chloride 94 mmol/L (101-111); EGFR African American 76.9 (>60); EGFR Non-African American 59.8 (>60); Globulin 3.1 g/dL (2-4); Glucose 183 mg/dL (70-100); Sodium 134 mmol/L (133-145); Total Protein 7.7 g/dL (6.4-8.9)
[2017-01-16 09:22] LABS: Troponin I 0.01 ng/mL (<0.04)
--- NOTE | 2017-01-16 09:29 | RAD ---
INDICATION: CT brain for cardiac arrest COMPARISON: None TECHNIQUE: Noncontrast axial source images were acquired from the skull base to the vertex. FINDINGS: Ventricles/sulci: The ventricles and cisterns are normal in size and configuration for age. Brain parenchyma: There is no focal parenchymal finding, evidence of intracranial mass, or intracranial mass effect. Intracranial hemorrhage:None. Extra-axial spaces: There are no abnormal extra axial fluid collections or evidence of extra-axial mass. Calvarium: There is no calvarial fracture or other calvarial abnormality. Scalp: There is no evidence of scalp or extracalvarial soft tissue abnormality. Paranasal sinuses/mastoid: The paranasal sinuses and mastoid air cells are clear. Other: None. IMPRESSION: NEGATIVE EXAMINATION
[2017-01-16] MEDS ORDERED: NS 0.9% 1000 ML* 2,000 ML IV ONE (09:39)
[2017-01-16] MEDS ORDERED: fentaNYL* 50 MCG/ML 2 ML VIAL (100 MCG VIAL) IV SLOW PU PRN (09:46)
[2017-01-16] MEDS ORDERED: oxyCODONE TAB* 5 MG TAB PO PRN (09:47)
[2017-01-16 09:48] LABS: Acetaminophen < 15 mcg/mL; Alcohol < 10 mg/dL (<10); Salicylate < 2.50 mg/dL (<30)
[2017-01-16 09:59] LABS: TSH (Thyroid Stimulating Horm) 2.17 mcIU/mL (0.34-5.60)
[2017-01-16] MEDS: LORazepam INJ* 2 MG/ML 1 ML VIAL IV PUSH ONE ×2 (10:02→10:28)
[2017-01-16] MEDS: Ondansetron INJ* 2 MG/ML VIAL IV PRN ×3 (10:05→19:57)
--- NOTE | 2017-01-16 10:39 | RAD ---
INDICATION: Chest pain COMPARISON: Chest x-ray April 27, 2016 TECHNIQUE: An AP portable view obtained at 10 0005 hours is submitted. FINDINGS: Bones/Soft Tissues: There are no acute bony findings. Cardiomediastinal: The cardiomediastinal silhouette is normal. Lungs: There are no infiltrates. Pleura: There are no pleural effusions. Other: There is an external pacer. There is an overlying chest catheter. IMPRESSION: LUNGS CLEAR. NO VASCULAR CONGESTIVE FINDINGS.
[2017-01-16 11:46] LABS: Lipase 732 U/L (11.0-82.0)
[2017-01-16] MEDS ORDERED: LORazepam INJ* 2 MG/ML 1 ML VIAL IV PUSH PRN (12:36)
[2017-01-16] MEDS ORDERED: Magnesium Sulfate 2 GM IV* 2 GM/50 ML BAG IVPB ONE (12:40)
--- NOTE | 2017-01-16 12:46 | HP ---
H&P (Free Text) History and Physical: CRITICAL CARE MEDICINE DATE: 01/16/17 TIME: 1100 REFERRING PROVIDER: Min REASON/CHIEF COMPLAINT: shaking and vomiting HISTORY OF PRESENT ILLNESS: 26 M known to [facility] [place] with [place] abuse and h/o Dts with seizures and alcohol induced cardimyopathy. Arived shaking in ED and had not drank etoh for >24h. Received ativan and zofran. Developed seizure dynamics and unresponsive to stimuli. Converted to pulseless VT on the monitor with ACLS instilled in ED. Converted to NSR with defib. Was alert again after. Underwent head CT. Was maintaining but given dynamics admitted to icu. Mom present on my eval and states pt had done ok after discharge for about 3 weeks she was with her but then went back to his habits. REVIEW OF SYSTEMS: As per HPI. PAST MEDICAL HISTORY: As per HPI. MEDICATIONS: Reviewed. ALLERGIES: NKDA SOCIAL HISTORY: Reviewed. FAMILY HISTORY: Noncontributory at present. PHYSICAL EXAM: Vital Signs: Reviewed. Neurologic: awake, communication, mod encephalpathy HEENT: anicteric, sclera little hyperemic Cardiovascular: tachy, 110s, no gallop appreciated Respiratory: relatively clear, little fast but adequete. nc 3 L turned uo to 6L from his post vt event Abdomen: obese, soft, nt Extremities: warm Access: piv LABS: Reviewed. IMAGING: Reviewed. MEDICATIONS: Reviewed. ASSESSMENT: 26 M DTs with seizures Acute etoh withdrawal Alcoholic cardiomyopathy VT - converted post defib PLAN: Neurologic: neurological status back to arrival baseline post vt. no indication for strict ttm. needs aggressive tx for his DTs. Use atc ativan and prn for now. If escalates nay consider low dose benzo gtt +/- precedex. received banana bag. will use further po or iv. Cardiovascular: Perfusing. Vol deplete. IVF bolus then dextrose with K. add back his bb. Respiratory: tolerating. suppl O2. watch airway but maintaining Gastrointestinal: po later. ppi. Renal/Metabolic: f/u lytes. replete mag, thiamine Infectious Disease: no burden. may have mild aspiration but no abx need Hematology: hemoconc. hsq Endocrine: f/u any needs Musculoskeletal: progressive mobility Psych/Social: should obtain psych eval perhaps later in stay and have social work work on better dispo dynamics Supportive and preventative care as ordered. SUP: ppi VTE prophylaxis: heparin Disposition: ICU Code Status: Full Critical Care Time: 45min Elisa Mortensen DO
[2017-01-16] MEDS ORDERED: Metoprolol Tartrate IV* 1 MG/ML 5 ML VIAL IV ONE (13:00)
[2017-01-16] MEDS ORDERED: D5W NS 0.9% 40Meq KCL 1000 ML* 1,000 ML IV SCH (13:00)
[2017-01-16] MEDS ORDERED: D5W 20 MEQ KCL 1000 ML BAG* 1,000 ML IV SCH (13:00)
[2017-01-16] MEDS: LORazepam INJ* 2 MG/ML 1 ML VIAL IV PUSH SCH ×3 (13:05→20:48)
[2017-01-16] MEDS: Thiamine IV* 100 MG/ML 2 ML VIAL IV SCH (13:06)
--- NOTE | 2017-01-16 14:35 | ED ---
Kaden Tsang Janilya, scribed for Ehsan Copeland MD on 01/16/17 at 0835 . Psychiatric Complaint - HPI Summary HPI Summary: A 26 y/o male came in to [facility] presenting w/ a gradual onset of constant Sx due to ceasing taking his heart meds because he was depressed. He says he "wanted to ". Pt reports nausea, vomiting, abd pain, weakness, tachycardia, tightness in chest. CP started a week and a half ago. It is described as "pressure and tightness". It radiates to his abd. Severity rated 7/10. Other Sx started a few weeks ago. Pt denies diarrhea. Pt states he stopped his meds a couple weeks ago. Pt had substantial EtOH consumption 26 hours ago. Pt's mother is present in the room. She states he is alcoholic. Pt's been here twice since October for "same issues", according to mother. She states he has not been treated for his EtOH abuse. - History Of Current Complaint Chief Complaint: [facility]entalHealth Hx Obtained From: Patient Onset/Duration: Gradual Onset, Lasting Weeks, Still Present Timing: Constant Severity Initially: Moderate Severity Currently: Moderate Character: Depressed Aggravating Factor(s): Nothing Alleviating Factor(s): Nothing Related History: Positive For: Prior Psychiatric Issues Has Suicidal: Reports: Thoughts. Denies: With A Plan, Demonstrates Gesture, Has Prior Attempt(s) Has Homicidal: Denies: Thoughts, With A Plan, Demonstrates Gesture, Has Prior Attempt(s) Ingestion History: Type/Name Of Drug - EtOH, Approximate Time Of Ingestion - 26 hours ago - Risk Factor(s) Completed Suicide Risk Factors: Male, White [place], Living Alone - Allergies/Home Medications Allergies/Adverse Reactions: Allergies Allergy/AdvReac Type Severity Reaction Status Date / Time No Known Allergies Allergy Verified 04/27/16 15:18 PMH/Surg Hx/FS Hx/Imm Hx Previously Healthy: Yes Endocrine/Hematology History: Denies: Hx Diabetes, Hx Thyroid Disease Cardiovascular History: Reports: Hx Congestive Heart Failure, Hx Hypercholesterolemia Denies: Hx Hypertension Respiratory History: Denies: Hx Asthma, Hx Chronic Obstructive Pulmonary Disease (COPD) GI History: Reports: Other GI Disorders - pancreatitis Denies: Hx Ulcer History: Denies: Hx Renal Disease Sensory History: Reports: Hx Contacts or Glasses - glasses Opthamlomology History: Reports: Hx Contacts or Glasses - glasses - Surgical History Surgery Procedure, Year, and Place: inguinal hernia repair 2012. birthmark removal from back Infectious Disease History: Denies: Hx Hepatitis, Hx Human Immunodeficiency Virus (HIV), Hx of Known/ Suspected MRSA, Hx Shingles, Hx Tuberculosis, History Other Infectious Disease, Traveled Outside the [place] in Last 30 Days - Family History Known Family History: Negative: Blood Disorder - Social History Lives: Alone Alcohol Use: None Alcohol Amount: 2-5 drinks/day Substance Use Type: Reports: None Smoking Status (MU): Never Smoked Tobacco Review of Systems Positive: Chills Positive: Chest Pain, Other - tachycardia Positive: Abdominal Pain, Vomiting, Nausea. Negative: Diarrhea Positive: Weakness Positive: Depressed All Other Systems Reviewed And Are Negative: Yes Physical Exam - Summary Physical Exam Summary: VITAL SIGNS: Reviewed. GENERAL: Patient walked into the room. He is a well developed and nourished male who is actively having nausea and vomiting. Patient is not in any acute respiratory distress. HEAD AND FACE: No signs of trauma. No ecchymosis, hematomas or skull depressions. No sinus tenderness. EYES: PERRLA, EOMI x 2, No injected conjunctiva, no nystagmus. EARS: Hearing grossly intact. Ear canals and tympanic membranes are within normal limits. MOUTH: Oropharynx within normal limits. NECK: Supple, trachea is midline, no adenopathy, no JVD, no carotid bruit, no c- spine tenderness, neck with full ROM. CHEST: Symmetric, no tenderness at palpation LUNGS: Clear to auscultation bilaterally. No wheezing or crackles. CVS: Regular rate and rhythm, S1 and S2 present, no murmurs or gallops appreciated. ABDOMEN: Soft, positive epigastric tenderness. No signs of distention. No rebound no guarding, and no masses palpated. Bowel sounds are normal. EXTREMITIES: FROM in all major joints, no edema, no cyanosis or clubbing. NEURO: Alert and oriented x 3. No acute neurological deficits. Speech is normal and follows commands. SKIN: Dry and warm PSYCH: Depressed, quiet, positive suicidal thoughts, no plan. No homicidal thoughts or plan. No signs of psychosis or pressure speech. No tangential speech. Triage Information Reviewed: Yes Vital Signs On Initial Exam: Initial Vitals Temp Pulse Resp BP Pulse Ox 96.0 F 117 18 185/101 100 01/16/17 08:26 01/16/17 08:26 01/16/17 08:26 01/16/17 08:26 01/16/17 08:26 Vital Signs Reviewed: Yes Diagnostics - Vital Signs Vital Signs Temp Pulse Resp BP Pulse Ox 01/16/17 08:26 96.0 F 117 18 185/101 100 - Laboratory Result Diagrams: 01/16/17 08:50 01/16/17 08:50 Lab Statement: Any lab studies that have been ordered have been reviewed, and results considered in the medical decision making process. - CT brain CT Interpretation: No Acute Changes - IMPRESSION: Negative exam CT Interpretation Completed By: Radiologist - EKG 0927 Cardiac Rate: Tachycardia - 108 bp EKG Rhythm: Sinus Tachycardia EKG Interpretation: T wave inversion in V4, V5, V6 Course/Dx - Course Assessment/Plan: A 26 y/o male came in to [facility] presenting w/ a gradual onset of constant Sx due to ceasing taking his heart meds because he was depressed. He says he "wanted to ". Pt reports nausea, vomiting, abd pain, weakness, tachycardia, tightness in chest. CP started a week and a half ago. It is described as "pressure and tightness". It radiates to his abd. Severity rated 7/ 10. Other Sx started a few weeks ago. Pt denies diarrhea. Pt states he stopped his meds a couple weeks ago. Pt had substantial EtOH consumption 26 hours ago. Pt's mother is present in the room. She states he is alcoholic. Pt's been here twice since October for "same issues", according to mother. She states he has not been treated for his EtOH abuse. Initially we obtained 2 IV access and he was started in IVF, banana bag since he is an alcoholic and Zofran for nausea and vomiting. Suddenly the patient had a tonic clonic seizure which lasted for approximately 40 sec. He was given Ativan IV and he was placed in NC O2. He continues to saturate 100%. After a few seconds patient when into V. tachycardia. Patient became pulseless. ACLS protocol was followed. COR was started and he was shocked once with 120 joules. Patient converted to Sinus tach at 110 BPM. A few minutes later he woke up and now he is A+O x 3. He reported this was intense. Blood test are found within normal limits except for WBCs 24.6, K+ hemolyzed, creatinine 1.42, glucose 183, trop 0.01, lipase 732. CXR no acute pathology. Head CT: normal examination. At this time wander continues to improve. I disused the case with Dr. Mortensen who came and examined the patient. He accepted patient for admission. At this time he is A+O x 3 and he is hemodynamically stable. He will be transferred to the ICU. - Differential Dx/Clinical Impression Differential Diagnosis/HQI/PQRI: Positive: Alcohol Intoxication, Depression, Suicidal Ideation, Other - Chest pain, ACS, pancreatitis, GERD, Gastritis alcohol withdrawal, DT Provider Diagnosis: Alcohol withdrawal, Seizure due to alcohol withdrawal, Ventricular tachycardia , Pancreatitis - Physician Notifications Discussed Care Of Patient With: Dr. Mortensen (production estimator) at 0921: agrees to accept pt. - Critical Care Time Critical Care Time: 30-74 min - ABC alert at 0910. Pt was unresponsive and seizing. He went into [facility]. Discharge - Discharge Plan Condition: Stable Disposition: ADMITTED TO [facility] documentation as recorded by the Kaden alvarado Janilya accurately reflects the service I personally performed and the decisions made by me, Ehsan Copeland MD.
[2017-01-16] MEDS: Metoprolol Tartrate IV* 1 MG/ML 5 ML VIAL IV SCH ×2 (15:49→19:47)
[2017-01-16] MEDS ORDERED: cloNIDine 0.2 MG PATCH* 0.2 MG/24 HR 7 DAY PATCH TRANSDERM SCH (16:00)
[2017-01-16] MEDS: Metoprolol Tartrate TAB* 50 mg PO SCH (20:48)
[2017-01-17] MEDS ORDERED: LORazepam TAB(*) 1 MG PO PRN (01:22)
--- NOTE | 2017-01-17 01:23 | PN ---
Progress Note - Progress Note Note: Patient ripped out IV, very anxious/agitated. Now has since settled. Will change to PO ativan q2prn and scheduled q4hr.
[2017-01-17] MEDS: LORazepam INJ* 2 MG/ML 1 ML VIAL IV PUSH SCH ×6 (01:37→20:19)
[2017-01-17] MEDS: LORazepam TAB(*) 1 MG PO SCH ×6 (01:42→21:49)
[2017-01-17 05:27] LABS: Hematocrit 39 % (42-52); Hemoglobin 13.5 g/dl (14.0-18.0); Mean Corpuscular HGB Conc 34 g/dl (31-36); Mean Corpuscular Hemoglobin 32 pg (27-31); Mean Corpuscular Volume 95 fL (80-94); Mean Platelet Volume 8 um3 (7.4-10.4); Red Blood Count 4.17 10^6/ul (4.0-5.4); Red Cell Distribution Width 17 % (10.5-15); White Blood Count 17.2 10^3/ul (3.5-10.8)
[2017-01-17 05:40] LABS: Comments Flag Yes
[2017-01-17 05:41] LABS: Add Diff/Slide Review? Slide Review Added
[2017-01-17 05:42] LABS: BUN/Creatinine Ratio 9.1 (8-20); Calcium 8.6 mg/dL (8.6-10.3); EGFR African American 155.9 (>60); EGFR Non-African American 121.2 (>60); Phosphorus 2.5 mg/dL (2.5-5.0)
[2017-01-17 05:45] LABS: Potassium 3.7 mmol/L (3.5-5.0)
[2017-01-17] MEDS: Metoprolol Tartrate TAB* 50 mg PO SCH ×2 (08:40→20:19)
[2017-01-17] MEDS: Thiamine IV* 100 MG/ML 2 ML VIAL IV SCH ×2 (08:40→08:41)
[2017-01-17] MEDS: Vitamin THERAPEUTIC TAB PO SCH (10:56)
[2017-01-17] MEDS: LACTULOSE* 30 ML UDC PO SCH (10:56)
[2017-01-17] MEDS: Thiamine TAB* 100 MG TAB PO SCH (10:57)
--- NOTE | 2017-01-17 11:18 | PN ---
Progress Note - Progress Note Note: CRITICAL CARE MEDICINE SUBJECTIVE: Patient seen and examined. Feels ok, but confused. PHYSICAL EXAM: Vital Signs: Reviewed. bp still up a bit Neurologic: awake, communication, mild-mod encephalpathy HEENT: anicteric Cardiovascular: hr 80-90s, no gallop appreciated Respiratory: relatively clear Abdomen: obese, soft, nt Extremities: warm Access: piv LABS: Reviewed. IMAGING: Reviewed. MEDICATIONS: Reviewed. ASSESSMENT: 26 M DTs with seizures Acute etoh withdrawal Alcoholic cardiomyopathy VT - converted post defib Toxic metabolic > hepatic encephalopathy PLAN: Neurologic: stable. tx for his DTs with ongoing ativan. inc bb to help. clonidine td. ativan prn as well. thiamine, mvi. chronic pain meds Cardiovascular: Perfusing. Vol status better. off ivf. on bb Respiratory: tolerating. Gastrointestinal: po diet encourage. Renal/Metabolic: f/u lytes. Infectious Disease: no burden. Hematology: hemoconc. hsq Endocrine: f/u Musculoskeletal: progressive mobility Psych/Social: mother updated Supportive and preventative care as ordered. SUP: po VTE prophylaxis: heparin Disposition: ICU given further withdrawal window Code Status: Full Critical Care Time: 25min Elisa Mortensen DO
[2017-01-18] MEDS: LORazepam INJ* 2 MG/ML 1 ML VIAL IV PUSH SCH ×6 (00:23→20:51)
[2017-01-18] MEDS: LORazepam TAB(*) 1 MG PO SCH ×6 (02:20→20:50)
[2017-01-18 04:59] LABS: Hematocrit 37 % (42-52); Hemoglobin 12.6 g/dl (14.0-18.0); Mean Corpuscular HGB Conc 34 g/dl (31-36); Mean Corpuscular Hemoglobin 32 pg (27-31); Mean Corpuscular Volume 95 fL (80-94); Mean Platelet Volume 8 um3 (7.4-10.4); Red Blood Count 3.89 10^6/ul (4.0-5.4); Red Cell Distribution Width 17 % (10.5-15); White Blood Count 12.2 10^3/ul (3.5-10.8)
[2017-01-18 05:17] LABS: BUN/Creatinine Ratio 11.1 (8-20); Calcium 8.8 mg/dL (8.6-10.3); EGFR African American 168.4 (>60); Magnesium 1.9 mg/dL (1.9-2.7); Potassium 3.2 mmol/L (3.5-5.0)
[2017-01-18 05:20] LABS: Comments Flag Yes
[2017-01-18] MEDS: Vitamin THERAPEUTIC TAB PO SCH (08:48)
[2017-01-18] MEDS: Thiamine TAB* 100 MG TAB PO SCH (08:48)
[2017-01-18] MEDS: LACTULOSE* 30 ML UDC PO SCH (08:48)
[2017-01-18] MEDS: Metoprolol Tartrate TAB* 50 mg PO SCH ×2 (08:49→20:51)
[2017-01-18] MEDS: Lisinopril TAB* 10 MG PO SCH (10:53)
[2017-01-18] MEDS: amLODIPine TAB* 5 MG PO SCH (10:53)
[2017-01-18] MEDS: Potassium Chlor TAB* 20 MEQ TAB.ER PO SCH ×2 (10:53→14:06)
[2017-01-18 11:23] LABS: Add Diff/Slide Review? Manual Diff Added
[2017-01-18 11:25] LABS: Eosinophils % 2 % (0-6); Macrocytosis 1+; Neutrophil % 89 % (38-83)
[2017-01-18 12:14] LABS: Albumin 3.4 g/dL (3.2-5.2); Direct Bilirubin 0.2 mg/dL (0.03-0.18); Globulin 2.9 g/dL (2-4); Indirect Bilirubin 0.8 mg/dL (0.3-1.0); Total Protein 6.3 g/dL (6.4-8.9)
--- NOTE | 2017-01-18 12:21 | PN ---
Progress Note - Progress Note Note: CRITICAL CARE MEDICINE 01/18/17 835 SUBJECTIVE: Patient seen and examined. Feels ok, but still with confused. PHYSICAL EXAM: Vital Signs: Reviewed. bp still up a bit Neurologic: awake, communication, mild-mod encephalpathy HEENT: anicteric Cardiovascular: hr 100s, no gallop appreciated Respiratory: relatively clear Abdomen: obese, soft, nt Extremities: warm Access: piv LABS: Reviewed. IMAGING: Reviewed. MEDICATIONS: Reviewed. ASSESSMENT: 26 M DTs with seizures Acute etoh withdrawal Alcoholic cardiomyopathy VT - converted post defib Toxic metabolic > hepatic encephalopathy PLAN: Neurologic: stable. tx for his DTs with ongoing ativan still. bb still. clonidine td. ativan prn as well. thiamine, mvi. chronic pain meds Cardiovascular: Perfusing. bb. add back anti-htn. clonidine for withdrawal Respiratory: tolerating. Gastrointestinal: po diet encourage. lactulose daily Renal/Metabolic: f/u lytes. Infectious Disease: no burden. Hematology: hemoconc. never received heparin and yet plt dropped. Likely toxin induced sec to etoh. f/u for recovery. Endocrine: f/u any needs Musculoskeletal: progressive mobility Psych/Social: f/u needs Supportive and preventative care as ordered. SUP: po diet VTE prophylaxis: scd, ambulating Disposition: of for floor Code Status: Full Critical Care Time: 25min FOsbaldo Mortensen DO
[2017-01-19] MEDS: LORazepam TAB(*) 1 MG PO SCH ×8 (00:49→21:53)
[2017-01-19] MEDS: LORazepam INJ* 2 MG/ML 1 ML VIAL IV PUSH SCH ×5 (00:51→14:10)
[2017-01-19 08:03] LABS: Hematocrit 38 % (42-52); Hemoglobin 13.3 g/dl (14.0-18.0); Mean Corpuscular HGB Conc 35 g/dl (31-36); Mean Corpuscular Hemoglobin 33 pg (27-31); Mean Corpuscular Volume 94 fL (80-94); Mean Platelet Volume 9 um3 (7.4-10.4); Red Blood Count 4.01 10^6/ul (4.0-5.4); Red Cell Distribution Width 17 % (10.5-15); White Blood Count 8.2 10^3/ul (3.5-10.8)
[2017-01-19 08:13] LABS: BUN/Creatinine Ratio 12.7 (8-20); EGFR African American 196.5 (>60); EGFR Non-African American 152.8 (>60); Magnesium 1.9 mg/dL (1.9-2.7); Phosphorus 3.3 mg/dL (2.5-5.0); Potassium 3.2 mmol/L (3.5-5.0)
[2017-01-19] MEDS: Thiamine TAB* 100 MG TAB PO SCH (08:18)
[2017-01-19] MEDS: LACTULOSE* 30 ML UDC PO SCH (08:18)
[2017-01-19] MEDS: Lisinopril TAB* 10 MG PO SCH (08:18)
[2017-01-19] MEDS: amLODIPine TAB* 5 MG PO SCH (08:18)
[2017-01-19] MEDS: Vitamin THERAPEUTIC TAB PO SCH (08:18)
[2017-01-19] MEDS: Metoprolol Tartrate TAB* 50 mg PO SCH ×2 (08:18→20:53)
[2017-01-19 08:27] LABS: Comments Flag Yes
[2017-01-19] MEDS ORDERED: Pneumococcal Vac Polyvalent* 0.5 ML VIAL IM ONE (09:00)
[2017-01-19] MEDS: Potassium Chlor TAB* 20 MEQ TAB.ER PO SCH ×2 (14:09→17:31)
--- NOTE | 2017-01-19 15:11 | PN ---
Subjective Date of Service: 01/19/17 Interval History: Pt is feeling ok. He denies any chest pain or SOB at this time. No swelling of the legs. He has had diarrhea today and feels bloated. Objective Active Medications: Acetaminophen (Tylenol Tab*) 650 mg PO Q6H PRN PRN Reason: FEVER Amlodipine Besylate (Norvasc Tab*) 10 mg PO DAILY [facility] Last Admin: 01/19/17 08:18 Dose: 10 mg Clonidine HCl (Vxdxfxds-Trw-1 0.2 Mg Patch*) 0.2 mg TRANSDERM Q7D [facility] Last Admin: 01/16/17 15:49 Dose: 0.2 mg Fentanyl Citrate (Fentanyl*) 25 mcg IV SLOW PU Q4H PRN PRN Reason: SEVERE PAIN Last Admin: 01/16/17 22:08 Dose: 25 mcg Lisinopril (Prinivil Tab*) 20 mg PO DAILY [facility] Last Admin: 01/19/17 08:18 Dose: 20 mg Lorazepam (Ativan Tab(*)) 2 mg PO Q4H [facility] Metoprolol Tartrate (Lopressor Tab*) 100 mg PO Q12HR [facility] Last Admin: 01/19/17 08:18 Dose: 100 mg Multivitamins (Theragran Tab*) 1 tab PO DAILY [facility] Last Admin: 01/19/17 08:18 Dose: 1 tab Ondansetron HCl (Zofran Inj*) 4 mg IV Q6H PRN PRN Reason: NAUSEA Last Admin: 01/16/17 19:57 Dose: 4 mg Oxycodone HCl (Roxycodone Tab*) 5 mg PO Q4H PRN PRN Reason: PAIN Last Admin: 01/16/17 19:48 Dose: 5 mg Pneumococcal Polyvalent Vaccine (Pneumococcal Vac Polyvalent*) 0.5 ml IM .ONCE ONE Stop: 01/20/17 09:01 Potassium Chloride (Klor Con Er Tab*) 40 meq PO Q4H [facility] Stop: 01/19/17 17:01 Last Admin: 01/19/17 14:09 Dose: 40 meq Thiamine HCl (Vitamin B-1 Tab*) 100 mg PO DAILY [facility] Last Admin: 01/19/17 08:18 Dose: 100 mg Vital Signs 01/18/17 01/18/17 01/18/17 18:25 19:55 20:00 Temperature 98.7 F Pulse Rate 71 Respiratory 16 18 16 Rate Blood Pressure 161/97 (mmHg) O2 Sat by Pulse 96 Oximetry 01/18/17 01/18/17 01/19/17 20:51 21:51 00:40 Temperature 99.2 F Pulse Rate 69 Respiratory 16 14 16 Rate Blood Pressure 176/108 (mmHg) O2 Sat by Pulse 98 Oximetry 01/19/17 01/19/17 01/19/17 00:51 01:51 03:36 Temperature 98.8 F Pulse Rate 81 Respiratory 16 16 20 Rate Blood Pressure 172/111 (mmHg) O2 Sat by Pulse 100 Oximetry 01/19/17 01/19/17 01/19/17 05:02 07:38 08:00 Temperature 98.3 F Pulse Rate 67 Respiratory 16 16 16 Rate Blood Pressure 171/104 (mmHg) O2 Sat by Pulse 98 Oximetry 01/19/17 01/19/17 01/19/17 09:29 09:42 09:54 Temperature Pulse Rate 91 Respiratory 16 20 Rate Blood Pressure 142/90 (mmHg) O2 Sat by Pulse 98 99 Oximetry 01/19/17 01/19/17 01/19/17 11:25 11:29 14:10 Temperature 98.5 F Pulse Rate 72 Respiratory 16 17 16 Rate Blood Pressure 178/100 (mmHg) O2 Sat by Pulse 96 Oximetry Oxygen Devices in Use Now: None Appearance: Young male sleeping in bed, awakens to voice, NAD Eyes: No Scleral Icterus Ears/Nose/Mouth/Throat: Mucous Membranes Moist Respiratory: Symmetrical Chest Expansion and Respiratory Effort, Clear to Auscultation Cardiovascular: NL Sounds; No Murmurs; No JVD, RRR, No Edema Abdominal: NL Sounds; No Tenderness; No Distention Extremities: No Clubbing, Cyanosis Skin: No Rash or Ulcers, No Nodules or Sclerosis Neurological: Alert and Oriented x 3 Result Diagrams: 01/19/17 07:37 01/19/17 07:37 Microbiology and Other Data: Microbiology 01/16/17 10:20 Nasal Screen MRSA (PCR)(CHRISTINE) - Final Nasal Mrsa Negative Assess/Plan/Problems-Billing Mr Mei is a 26 yo M who has a h/o alcoholism, alcohol induced cardiomyopathy , HTN and SHRUTHI who presented to the ER with c/o alcohol withdrawal symptoms and when in the ER had cardiac arrest requiring defibrillation for VT once and was subsequently admitted to the ICU. - Patient Problems (1) Sustained ventricular tachycardia Current Visit: Yes Status: Acute Code(s): I47.2 - VENTRICULAR TACHYCARDIA SNOMED Code(s): 923204488 Comment: The patient required defibrillation x1 in the ER. He has a known history of severe dilated cardiomyopathy secondary to alcohol abuse. His last echo in 04/2016 reveals his EF to be <20%. I spoke with cardiology who stated the patient is not a candidate for ICD due to his ongoing EtOH abuse and if he can maintain sobriety at that time if he has been on his meds and his EF is no better than at that time he might be an ICD candidate. For now continue cardiac meds and keep K/Mg optimized. (2) Alcohol withdrawal Current Visit: Yes Status: Acute Code(s): F10.239 - ALCOHOL DEPENDENCE WITH WITHDRAWAL, UNSPECIFIED SNOMED Code(s): 154120019 Comment: Continue standing ativan q4hr but change to oral. Will begin to taper ativan tomorrow if stable. Will ask for social work eval and psych eval as pt stated to ER provider that he wished to which is why he stopped his meds several weeks ago. (3) HTN (hypertension) Current Visit: Yes Status: Acute Code(s): I10 - ESSENTIAL (PRIMARY) HYPERTENSION SNOMED Code(s): 62849519 Comment: BP is completely uncontrolled despite clonidine being added to his home regimen of metoprolol tartrate, lisinopril and amlodipine. Will add hydralazine 10mg TID and monitor the BP. (4) Thrombocytopenia Current Visit: Yes Status: Acute Code(s): D69.6 - THROMBOCYTOPENIA, UNSPECIFIED SNOMED Code(s): 896343631 Comment: Plt count appears to be rebounding. Continue to follow. (5) Elevated lipase Current Visit: Yes Status: Acute Code(s): R74.8 - ABNORMAL LEVELS OF OTHER SERUM ENZYMES SNOMED Code(s): 200663009 Comment: The patient had a moderately elevated lipase-now trending down. Pt denies any abdominal pain to indicate pancreatitis. (6) Dilated cardiomyopathy secondary to alcohol Current Visit: Yes Status: Acute Code(s): I42.6 - ALCOHOLIC CARDIOMYOPATHY SNOMED Code(s): 95980061 Comment: Pt has been started back on his prior home medication regimen of lisinopril 20mg daily and metoprolol tartrate 100mg q12hr. BP is not optimal so will increase lisinopril to 40mg daily. (7) DVT prophylaxis Current Visit: Yes Status: Acute Code(s): FUN8412 - SNOMED Code(s): 143161572 Comment: SQ heparin (8) Full code status Current Visit: Yes Status: Acute Code(s): Z78.9 - OTHER SPECIFIED HEALTH STATUS SNOMED Code(s): 138208481
[2017-01-19] MEDS: hydrALAZINE TAB* 10 MG PO SCH ×2 (15:37→20:53)
[2017-01-19] MEDS: Heparin VIAL(*) 5000 UNITS/ML VIAL (FIVE THOUSAND) SUBCUT SCH (20:53)
[2017-01-20] MEDS: LORazepam TAB(*) 1 MG PO SCH ×5 (02:26→21:31)
[2017-01-20 05:10] LABS: BUN/Creatinine Ratio 14.7 (8-20); Calcium 9.2 mg/dL (8.6-10.3); EGFR African American 179.9 (>60); EGFR Non-African American 139.9 (>60); Magnesium 1.9 mg/dL (1.9-2.7); Potassium 3.4 mmol/L (3.5-5.0)
[2017-01-20] MEDS ORDERED: Pneumococcal Vac Polyvalent* 0.5 ML VIAL IM ONE (09:00)
[2017-01-20] MEDS: Heparin VIAL(*) 5000 UNITS/ML VIAL (FIVE THOUSAND) SUBCUT SCH ×2 (10:01→21:31)
[2017-01-20] MEDS: Metoprolol Tartrate TAB* 50 mg PO SCH ×2 (10:05→21:32)
[2017-01-20] MEDS: Thiamine TAB* 100 MG TAB PO SCH (10:05)
[2017-01-20] MEDS: Lisinopril TAB* 10 MG PO SCH (10:05)
[2017-01-20] MEDS: amLODIPine TAB* 5 MG PO SCH (10:05)
[2017-01-20] MEDS: hydrALAZINE TAB* 10 MG PO SCH ×3 (10:05→21:32)
[2017-01-20] MEDS: Vitamin THERAPEUTIC TAB PO SCH (10:05)
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
--- NOTE | 2017-01-20 16:14 | PN ---
Subjective Date of Service: 01/20/17 Interval History: Pt is feeling ok. He states he had a good conversation with Dr. Corea earlier today. He denies any chest pain or SOB. No swelling of his legs. His mom then tells me that when he finished speaking with Dr. Corea he was crying. Objective Active Medications: Acetaminophen (Tylenol Tab*) 650 mg PO Q6H PRN PRN Reason: FEVER Amlodipine Besylate (Norvasc Tab*) 10 mg PO DAILY [facility] Last Admin: 01/20/17 10:05 Dose: 10 mg Clonidine HCl (Vwpdwbmk-Fkn-0 0.2 Mg Patch*) 0.2 mg TRANSDERM Q7D [facility] Last Admin: 01/16/17 15:49 Dose: 0.2 mg Furosemide (Lasix Tab*) 20 mg PO DAILY [facility] Heparin Sodium (Porcine) (Heparin Vial(*)) 5,000 units SUBCUT Q12HR [facility] Last Admin: 01/20/17 10:01 Dose: 5,000 units Hydralazine HCl (Apresoline Tab*) 20 mg PO TID [facility] Lisinopril (Prinivil Tab*) 40 mg PO DAILY [facility] Last Admin: 01/20/17 10:05 Dose: 40 mg Lorazepam (Ativan Tab(*)) 2 mg PO Q4H [facility] Last Admin: 01/20/17 14:15 Dose: 2 mg Metoprolol Tartrate (Lopressor Tab*) 100 mg PO Q12HR [facility] Last Admin: 01/20/17 10:05 Dose: 100 mg Multivitamins (Theragran Tab*) 1 tab PO DAILY [facility] Last Admin: 01/20/17 10:05 Dose: 1 tab Ondansetron HCl (Zofran Inj*) 4 mg IV Q6H PRN PRN Reason: NAUSEA Last Admin: 01/16/17 19:57 Dose: 4 mg Oxycodone HCl (Roxycodone Tab*) 5 mg PO Q4H PRN PRN Reason: PAIN Last Admin: 01/16/17 19:48 Dose: 5 mg Potassium Chloride (Klor Con Er Tab*) 40 meq PO Q4H [facility] Stop: 01/20/17 19:01 Thiamine HCl (Vitamin B-1 Tab*) 100 mg PO DAILY [facility] Last Admin: 01/20/17 10:05 Dose: 100 mg Vital Signs 01/19/17 01/19/17 01/19/17 17:48 18:59 20:17 Temperature 98.1 F Pulse Rate 73 Respiratory 16 16 18 Rate Blood Pressure 160/102 (mmHg) O2 Sat by Pulse 98 Oximetry 01/19/17 01/19/17 01/19/17 21:53 23:33 23:53 Temperature 98.4 F Pulse Rate 75 Respiratory 16 20 14 Rate Blood Pressure 165/101 (mmHg) O2 Sat by Pulse 98 Oximetry 01/20/17 01/20/17 01/20/17 02:26 03:27 04:26 Temperature 98.3 F Pulse Rate 67 Respiratory 16 20 16 Rate Blood Pressure 154/100 (mmHg) O2 Sat by Pulse 95 Oximetry 01/20/17 01/20/17 01/20/17 05:48 07:34 08:00 Temperature 98.0 F Pulse Rate 70 Respiratory 16 20 20 Rate Blood Pressure 163/119 (mmHg) O2 Sat by Pulse 98 Oximetry 01/20/17 01/20/17 01/20/17 10:04 11:51 14:15 Temperature 98.8 F Pulse Rate 70 Respiratory 12 18 16 Rate Blood Pressure 164/98 (mmHg) O2 Sat by Pulse 100 Oximetry Oxygen Devices in Use Now: None Appearance: Young male sitting up in bed, NAD Eyes: No Scleral Icterus Ears/Nose/Mouth/Throat: Mucous Membranes Moist Respiratory: Symmetrical Chest Expansion and Respiratory Effort, Clear to Auscultation Cardiovascular: NL Sounds; No Murmurs; No JVD, RRR, No Edema Abdominal: NL Sounds; No Tenderness; No Distention Extremities: No Clubbing, Cyanosis Skin: No Rash or Ulcers, No Nodules or Sclerosis Neurological: Alert and Oriented x 3 Result Diagrams: 01/19/17 07:37 01/20/17 04:24 Microbiology and Other Data: Microbiology 01/16/17 10:20 Nasal Screen MRSA (PCR)(CHRISTINE) - Final Nasal Mrsa Negative Assess/Plan/Problems-Billing Mr Mei is a 26 yo M who has a h/o alcoholism, alcohol induced cardiomyopathy , HTN and SHRUTHI who presented to the ER with c/o alcohol withdrawal symptoms and when in the ER had cardiac arrest requiring defibrillation for VT once and was subsequently admitted to the ICU. - Patient Problems (1) Sustained ventricular tachycardia Current Visit: Yes Status: Acute Code(s): I47.2 - VENTRICULAR TACHYCARDIA SNOMED Code(s): 793239860 Comment: No further VT. Keep electrolytes optimized. Continue to monitor on tele. (2) Alcohol withdrawal Current Visit: Yes Status: Acute Priority: High Code(s): F10.239 - ALCOHOL DEPENDENCE WITH WITHDRAWAL, UNSPECIFIED SNOMED Code(s): 658618251 Comment: Decrease ativan to q8hr and change to prn tomorrow. No signs of withdrawal at this time but perhaps a mild delirium. (3) HTN (hypertension) Current Visit: Yes Status: Acute Code(s): I10 - ESSENTIAL (PRIMARY) HYPERTENSION SNOMED Code(s): 26193350 Comment: BP remains uncontrolled. Resume lasix, increase hydralazine to 20mg TID. Continue to follow the BP. (4) Thrombocytopenia Current Visit: Yes Status: Acute Code(s): D69.6 - THROMBOCYTOPENIA, UNSPECIFIED SNOMED Code(s): 934780427 Comment: Follow intermittently. (5) Elevated lipase Current Visit: Yes Status: Acute Code(s): R74.8 - ABNORMAL LEVELS OF OTHER SERUM ENZYMES SNOMED Code(s): 010980747 Comment: No signs of pancreatitis. No need to follow further. (6) Dilated cardiomyopathy secondary to alcohol Current Visit: Yes Status: Acute Code(s): I42.6 - ALCOHOLIC CARDIOMYOPATHY SNOMED Code(s): 44747308 Comment: Pt remains on lisinopril 40mg daily and metoprolol tartrate 100mg q12hr. (7) DVT prophylaxis Current Visit: Yes Status: Acute Code(s): UGO5283 - SNOMED Code(s): 850418059 Comment: SQ heparin (8) Full code status Current Visit: Yes Status: Acute Code(s): Z78.9 - OTHER SPECIFIED HEALTH STATUS SNOMED Code(s): 538153616
[2017-01-20] MEDS: Potassium Chlor TAB* 20 MEQ TAB.ER PO SCH ×2 (18:20→22:02)
[2017-01-21] MEDS: Acetaminophen TAB* 325 MG PO PRN ×2 (02:39→20:47)
[2017-01-21] MEDS: LORazepam TAB(*) 1 MG PO SCH (04:42)
[2017-01-21] MEDS ORDERED: Furosemide TAB* 20 MG PO SCH (09:00)
[2017-01-21] MEDS: Lisinopril TAB* 10 MG PO SCH (09:33)
[2017-01-21] MEDS: amLODIPine TAB* 5 MG PO SCH (09:34)
[2017-01-21] MEDS: hydrALAZINE TAB* 10 MG PO SCH ×3 (09:34→20:46)
[2017-01-21] MEDS: Thiamine TAB* 100 MG TAB PO SCH (09:34)
[2017-01-21] MEDS: Furosemide TAB* 20 MG PO SCH (09:35)
[2017-01-21] MEDS: Vitamin THERAPEUTIC TAB PO SCH (09:35)
[2017-01-21] MEDS: Heparin VIAL(*) 5000 UNITS/ML VIAL (FIVE THOUSAND) SUBCUT SCH ×2 (09:36→20:48)
[2017-01-21] MEDS: Metoprolol Tartrate TAB* 50 mg PO SCH ×2 (09:36→20:47)
[2017-01-21] MEDS ORDERED: LORazepam TAB(*) 1 MG PO PRN (12:46)
--- NOTE | 2017-01-21 13:43 | PN ---
Subjective Date of Service: 01/21/17 Interval History: Pt is feeling well. He is agreeable to going to the [facility] prior to inpatient alcohol rehab. He denies any pain. No SOB. Objective Active Medications: Acetaminophen (Tylenol Tab*) 650 mg PO Q6H PRN PRN Reason: FEVER Last Admin: 01/21/17 02:39 Dose: 650 mg Amlodipine Besylate (Norvasc Tab*) 10 mg PO DAILY [facility] Last Admin: 01/21/17 09:34 Dose: 10 mg Clonidine HCl (Sjyzdtuw-Via-5 0.2 Mg Patch*) 0.2 mg TRANSDERM Q7D [facility] Last Admin: 01/16/17 15:49 Dose: 0.2 mg Furosemide (Lasix Tab*) 20 mg PO DAILY [facility] Last Admin: 01/21/17 09:35 Dose: 20 mg Heparin Sodium (Porcine) (Heparin Vial(*)) 5,000 units SUBCUT Q12HR [facility] Last Admin: 01/21/17 09:36 Dose: 5,000 units Hydralazine HCl (Apresoline Tab*) 20 mg PO TID [facility] Last Admin: 01/21/17 09:34 Dose: 20 mg Lisinopril (Prinivil Tab*) 40 mg PO DAILY [facility] Last Admin: 01/21/17 09:33 Dose: 40 mg Lorazepam (Ativan Tab(*)) 2 mg PO Q8H PRN PRN Reason: ANXIETY Metoprolol Tartrate (Lopressor Tab*) 100 mg PO Q12HR [facility] Last Admin: 01/21/17 09:36 Dose: 100 mg Multivitamins (Theragran Tab*) 1 tab PO DAILY [facility] Last Admin: 01/21/17 09:35 Dose: 1 tab Ondansetron HCl (Zofran Inj*) 4 mg IV Q6H PRN PRN Reason: NAUSEA Last Admin: 01/16/17 19:57 Dose: 4 mg Oxycodone HCl (Roxycodone Tab*) 5 mg PO Q4H PRN PRN Reason: PAIN Last Admin: 01/16/17 19:48 Dose: 5 mg Thiamine HCl (Vitamin B-1 Tab*) 100 mg PO DAILY [facility] Last Admin: 01/21/17 09:34 Dose: 100 mg Vital Signs 04/12/17 04/12/17 04/12/17 14:15 15:27 16:15 Temperature 98.3 F Pulse Rate 73 Respiratory 16 16 14 Rate Blood Pressure 153/85 (mmHg) O2 Sat by Pulse 98 Oximetry 01/20/17 01/20/17 01/20/17 19:37 20:00 21:31 Temperature 98.0 F Pulse Rate 88 Respiratory 18 16 16 Rate Blood Pressure 165/100 (mmHg) O2 Sat by Pulse 99 Oximetry 01/21/17 01/21/17 01/21/17 00:27 03:37 04:42 Temperature 98.1 F 98.6 F Pulse Rate 85 71 Respiratory 20 20 16 Rate Blood Pressure 141/101 137/81 (mmHg) O2 Sat by Pulse 100 99 Oximetry 01/21/17 01/21/17 06:42 07:29 Temperature 98.3 F Pulse Rate 84 Respiratory 18 14 Rate Blood Pressure 148/91 (mmHg) O2 Sat by Pulse 100 Oximetry Oxygen Devices in Use Now: None Appearance: Young male sitting up in bed, eating lunch, NAD Eyes: No Scleral Icterus Ears/Nose/Mouth/Throat: Mucous Membranes Moist Respiratory: Symmetrical Chest Expansion and Respiratory Effort, Clear to Auscultation Cardiovascular: NL Sounds; No Murmurs; No JVD, RRR, No Edema Abdominal: NL Sounds; No Tenderness; No Distention Extremities: No Clubbing, Cyanosis Skin: No Rash or Ulcers, No Nodules or Sclerosis Neurological: Alert and Oriented x 3 Result Diagrams: 01/19/17 07:37 01/20/17 04:24 Microbiology and Other Data: Microbiology 01/16/17 10:20 Nasal Screen MRSA (PCR)(CHRISTINE) - Final Nasal Mrsa Negative Assess/Plan/Problems-Billing Mr Mei is a 26 yo M who has a h/o alcoholism, alcohol induced cardiomyopathy , HTN and SHRUTHI who presented to the ER with c/o alcohol withdrawal symptoms and when in the ER had cardiac arrest requiring defibrillation for VT once and was subsequently admitted to the ICU. - Patient Problems (1) Sustained ventricular tachycardia Current Visit: Yes Status: Acute Code(s): I47.2 - VENTRICULAR TACHYCARDIA SNOMED Code(s): 777405813 Comment: No further VT. Keep electrolytes optimized. Continue to monitor on tele. (2) Alcohol withdrawal Current Visit: Yes Status: Acute Priority: High Code(s): F10.239 - ALCOHOL DEPENDENCE WITH WITHDRAWAL, UNSPECIFIED SNOMED Code(s): 864400540 Comment: Change ativan to prn. Plan [place] [facility]. (3) HTN (hypertension) Current Visit: Yes Status: Acute Code(s): I10 - ESSENTIAL (PRIMARY) HYPERTENSION SNOMED Code(s): 17090433 Comment: BP is still not optimally controlled despite being on metoprolol tartrate 100mg BID, lisinopril 40mg daily, hydralazine 20mg TID, amlodipine 10mg daily and clonidine 0.2mg patch. Will increase the patch to 0.3mg topically q7days. Continue to monitor the BP. (4) Thrombocytopenia Current Visit: Yes Status: Acute Code(s): D69.6 - THROMBOCYTOPENIA, UNSPECIFIED SNOMED Code(s): 290502368 Comment: Follow intermittently. (5) Elevated lipase Current Visit: Yes Status: Acute Code(s): R74.8 - ABNORMAL LEVELS OF OTHER SERUM ENZYMES SNOMED Code(s): 241309326 Comment: No signs of pancreatitis. No need to follow further. (6) Dilated cardiomyopathy secondary to alcohol Current Visit: Yes Status: Acute Code(s): I42.6 - ALCOHOLIC CARDIOMYOPATHY SNOMED Code(s): 69070411 Comment: Pt remains on lisinopril 40mg daily and metoprolol tartrate 100mg q12hr. (7) DVT prophylaxis Current Visit: Yes Status: Acute Code(s): QBX5626 - SNOMED Code(s): 293931624 Comment: SQ heparin (8) Full code status Current Visit: Yes Status: Acute Code(s): Z78.9 - OTHER SPECIFIED HEALTH STATUS SNOMED Code(s): 220468206
[2017-01-21] MEDS ORDERED: cloNIDine 0.3 MG PATCH* 0.3 MG/24 HR 7 DAY PATCH TRANSDERM SCH ×2 (14:00→15:00)
[2017-01-22 05:48] LABS: Hematocrit 41 % (42-52); Hemoglobin 13.9 g/dl (14.0-18.0); Mean Corpuscular HGB Conc 34 g/dl (31-36); Mean Corpuscular Hemoglobin 33 pg (27-31); Mean Corpuscular Volume 96 fL (80-94); Mean Platelet Volume 8 um3 (7.4-10.4); Red Blood Count 4.26 10^6/ul (4.0-5.4); Red Cell Distribution Width 17 % (10.5-15); White Blood Count 6.2 10^3/ul (3.5-10.8)
[2017-01-22 05:52] LABS: Add Diff/Slide Review? Slide Review Added; Comments Flag Yes
[2017-01-22] MEDS: Heparin VIAL(*) 5000 UNITS/ML VIAL (FIVE THOUSAND) SUBCUT SCH (09:48)
[2017-01-22] MEDS: amLODIPine TAB* 5 MG PO SCH (09:48)
[2017-01-22] MEDS: Vitamin THERAPEUTIC TAB PO SCH (09:48)
[2017-01-22] MEDS: Furosemide TAB* 20 MG PO SCH (09:48)
[2017-01-22] MEDS: Lisinopril TAB* 10 MG PO SCH (09:48)
[2017-01-22] MEDS: hydrALAZINE TAB* 10 MG PO SCH ×2 (09:49→14:32)
[2017-01-22] MEDS: Thiamine TAB* 100 MG TAB PO SCH (09:49)
[2017-01-22] MEDS: Metoprolol Tartrate TAB* 50 mg PO SCH (09:49)
[2017-01-22 11:32] LABS: BUN/Creatinine Ratio 11.3 (8-20); Calcium 9.4 mg/dL (8.6-10.3); EGFR African American 149.1 (>60); Potassium 3.8 mmol/L (3.5-5.0)
--- NOTE | 2017-01-22 12:19 | PN ---
Subjective Date of Service: 01/22/17 Interval History: Pt is feeling well today. No pain or SOB. He is agreeable to going to the [facility] today. Objective Active Medications: Acetaminophen (Tylenol Tab*) 650 mg PO Q6H PRN PRN Reason: FEVER Last Admin: 01/21/17 20:47 Dose: 650 mg Amlodipine Besylate (Norvasc Tab*) 10 mg PO DAILY [facility] Last Admin: 01/22/17 09:48 Dose: 10 mg Clonidine HCl (Rciezdzx-Nro-1 0.3 Mg Patch*) 0.3 mg TRANSDERM Q7D@1500 [facility] Last Admin: 01/21/17 14:53 Dose: 0.3 mg Furosemide (Lasix Tab*) 20 mg PO DAILY [facility] Last Admin: 01/22/17 09:48 Dose: 20 mg Heparin Sodium (Porcine) (Heparin Vial(*)) 5,000 units SUBCUT Q12HR [facility] Last Admin: 01/22/17 09:48 Dose: 5,000 units Hydralazine HCl (Apresoline Tab*) 20 mg PO TID [facility] Last Admin: 01/22/17 09:49 Dose: 20 mg Lisinopril (Prinivil Tab*) 40 mg PO DAILY [facility] Last Admin: 01/22/17 09:48 Dose: 40 mg Lorazepam (Ativan Tab(*)) 2 mg PO Q8H PRN PRN Reason: ANXIETY Last Admin: 01/21/17 20:47 Dose: 2 mg Metoprolol Tartrate (Lopressor Tab*) 100 mg PO Q12HR [facility] Last Admin: 01/22/17 09:49 Dose: 100 mg Multivitamins (Theragran Tab*) 1 tab PO DAILY [facility] Last Admin: 01/22/17 09:48 Dose: 1 tab Ondansetron HCl (Zofran Inj*) 4 mg IV Q6H PRN PRN Reason: NAUSEA Last Admin: 01/16/17 19:57 Dose: 4 mg Oxycodone HCl (Roxycodone Tab*) 5 mg PO Q4H PRN PRN Reason: PAIN Last Admin: 01/16/17 19:48 Dose: 5 mg Thiamine HCl (Vitamin B-1 Tab*) 100 mg PO DAILY [facility] Last Admin: 01/22/17 09:49 Dose: 100 mg Vital Signs 01/21/17 01/21/17 01/21/17 15:14 19:36 20:00 Temperature 98.1 F 98.3 F Pulse Rate 86 73 Respiratory 16 16 16 Rate Blood Pressure 140/84 126/81 (mmHg) O2 Sat by Pulse 99 98 Oximetry 01/21/17 01/21/17 01/21/17 20:47 22:34 23:52 Temperature 97.8 F Pulse Rate 72 Respiratory 16 16 20 Rate Blood Pressure 146/91 (mmHg) O2 Sat by Pulse 100 Oximetry 01/22/17 01/22/17 04:19 07:17 Temperature 98.3 F 98.2 F Pulse Rate 79 66 Respiratory 20 16 Rate Blood Pressure 152/99 144/86 (mmHg) O2 Sat by Pulse 100 97 Oximetry Oxygen Devices in Use Now: None Appearance: Young male sitting up in bed, NAD Eyes: No Scleral Icterus Ears/Nose/Mouth/Throat: Mucous Membranes Moist Respiratory: Symmetrical Chest Expansion and Respiratory Effort, Clear to Auscultation Cardiovascular: NL Sounds; No Murmurs; No JVD, RRR, No Edema Abdominal: NL Sounds; No Tenderness; No Distention Extremities: No Clubbing, Cyanosis Skin: No Rash or Ulcers, No Nodules or Sclerosis Neurological: Alert and Oriented x 3 Result Diagrams: 01/22/17 04:59 01/22/17 04:58 Microbiology and Other Data: Microbiology 01/16/17 10:20 Nasal Screen MRSA (PCR)(CHRISTINE) - Final Nasal Mrsa Negative Assess/Plan/Problems-Billing Mr Mei is a 26 yo M who has a h/o alcoholism, alcohol induced cardiomyopathy , HTN and SHRUTHI who presented to the ER with c/o alcohol withdrawal symptoms and when in the ER had cardiac arrest requiring defibrillation for VT once and was subsequently admitted to the ICU. - Patient Problems (1) Sustained ventricular tachycardia Current Visit: Yes Status: Acute Code(s): I47.2 - VENTRICULAR TACHYCARDIA SNOMED Code(s): 636978464 Comment: No further VT. Keep electrolytes optimized. (2) Alcohol withdrawal Current Visit: Yes Status: Acute Code(s): F10.239 - ALCOHOL DEPENDENCE WITH WITHDRAWAL, UNSPECIFIED SNOMED Code(s): 594464448 Comment: Resolved. D/C to [facility] today. (3) HTN (hypertension) Current Visit: Yes Status: Acute Code(s): I10 - ESSENTIAL (PRIMARY) HYPERTENSION SNOMED Code(s): 21009060 Comment: BP is much improved but still not at goal. Continue current regimen for now and will likely need further adjustments in his BP regimen to get to optimal control. (4) Thrombocytopenia Current Visit: Yes Status: Acute Code(s): D69.6 - THROMBOCYTOPENIA, UNSPECIFIED SNOMED Code(s): 533636331 Comment: Resolved. (5) Elevated lipase Current Visit: Yes Status: Acute Code(s): R74.8 - ABNORMAL LEVELS OF OTHER SERUM ENZYMES SNOMED Code(s): 946710374 Comment: No signs of pancreatitis. (6) Dilated cardiomyopathy secondary to alcohol Current Visit: Yes Status: Acute Code(s): I42.6 - ALCOHOLIC CARDIOMYOPATHY SNOMED Code(s): 00027020 Comment: Pt remains on lisinopril 40mg daily and metoprolol tartrate 100mg q12hr. Lasix has been restarted. No signs of heart failure at this time. (7) DVT prophylaxis Current Visit: Yes Status: Acute Code(s): DOV9730 - SNOMED Code(s): 169569024 Comment: SQ heparin (8) Full code status Current Visit: Yes Status: Acute Code(s): Z78.9 - OTHER SPECIFIED HEALTH STATUS SNOMED Code(s): 677183450 Status and Disposition: d/c to [facility] today.
[2017-01-22 20:04] VITALS: BP 140/86
--- NOTE | 2017-01-23 13:45 | DS ---
DISCHARGE SUMMARY: DATE OF ADMISSION: 01/16/17 DATE OF DISCHARGE: 01/22/17 PRIMARY CARE PROVIDER: Dr. López. DIRECTOR RISK: Dr. Montiel. PRINCIPAL DIAGNOSES: 1. Ventricular tachycardia arrest, status post defibrillation with return of spontaneous circulation. 2. Alcoholic cardiomyopathy. 3. Suicidal ideation and depression. SECONDARY DIAGNOSES: 1. Alcohol withdrawal. 2. Alcoholism. DISCHARGE MEDICATIONS: 1. Aspirin 81 mg p.o. daily. 2. Amlodipine 10 mg p.o. daily. 3. Maalox 30 mL p.o. q.6 hours p.r.n. indigestion. 4. Tylenol 650 mg p.o. q.4 hours p.r.n. pain. 5. Lasix 20 mg p.o. daily. 6. Sertraline 100 mg p.o. daily. 7. Hydralazine 20 mg p.o. t.i.d. (new). 8. Clonidine patch 0.3 mg transdermal q.7 days (new). 9. Multivitamin 1 tab p.o. daily. 10. Thiamine 100 mg p.o. daily. 11. Metoprolol tartrate 100 mg p.o. q.12 hours (increased dose). 12. Lisinopril 40 mg p.o. daily (increased dose). HOSPITAL COURSE: Mr. Mei is a 26-year-old male, who presented to the emergency room on 01/16/17 with complaints of alcohol withdrawal. The patient stopped his cardiac medications 2 to 3 weeks prior to presentation. He had been drinking heavily and not had any alcohol in the 26 hours prior to admission. The patient was noted to be having a seizure and went into V-tach. CPR was started and the patient was defibrillated at 120 joules into sinus tachycardia. The patient was transported to the intensive care unit for admission. The patient was treated very aggressively for alcohol withdrawal. His electrolytes were optimized and he was restarted on his usual home medication regimen. The patient ultimately was able to be transferred out of the intensive care unit on 01/18/17. The patient continued to be treated for alcohol withdrawal and delirium. His electrolytes continued to be somewhat problematic, though he was not having any ventricular tachycardia. The patient had aggressive adjustments in his cardiac medication regimen for optimal blood pressure control. The patient ultimately was seen in consultation by Dr. Corea on 01/20/17 due to the patient stating in the emergency room that he stopped his medications because he wanted to . The decision was made to offer voluntary admission to the mental health unit for the patient. The patient has accepted the admission and will be discharged there this evening, . Overall, the patient is finally agreeing to mental health stay followed by inpatient alcohol rehab. We discussed at length the patient's chronic medical condition and the impact that ongoing alcohol use has. He understands that if he is able to abstain from alcohol that he could potentially have recovery of his heart muscle function. Additionally, if he does not have recovery of his EF, but he is sober, he would be a candidate for a defibrillator. At this time, as the patient has not proved that he can remain sober, he would not be a defibrillator candidate. The patient's blood pressure throughout this hospitalization has been difficult to control. His pressures were markedly elevated. His lisinopril and metoprolol doses were increased. He was started on a clonidine patch, which has been increased to 0.3 mg per hour patch topically q.7 days and hydralazine 20 mg 3 times daily. The patient's blood pressure is improved, though not optimal. He will need continued monitoring of his blood pressure and adjustments in his medication regimen. FOLLOWUP CONCERNS: The patient is being discharged to mental health unit today , 01/22/17. ACTIVITY LEVEL: As tolerated. DIET: Low salt. CONDITION ON DISCHARGE: Stable. TIME SPENT: Thirty-five minutes was spent discharging this patient. CC: Dr. López* [id number]/[facility] #: [id number] BRAIN
== END 2017-01-22 17:35 | DRG 775 ==
LOC: ED 08:25 → ICU 09:42 → MEDTELE 01-18 10:22
PROVIDERS: ADMIT Internal Medicine Critical Care Medicine; ATTEND Hospitalist
PROC: 5A12012 Performance of Cardiac Output, Single, Manual (ICD-10-PCS; principal; 2017-01-16)
PROC: 5A2204Z Restoration of Cardiac Rhythm, Single (ICD-10-PCS; 2017-01-16)
PROC: 3E0234Z Introduction of Serum, Toxoid and Vaccine into Muscle, Percutaneous Approach (ICD-10-PCS; 2017-01-20)
DX: F10.231 Alcohol dependence with withdrawal delirium (principal); G92 Toxic encephalopathy; I46.2 Cardiac arrest due to underlying cardiac condition; I50.9 Heart failure, unspecified; D69.6 Thrombocytopenia, unspecified; I42.0 Dilated cardiomyopathy; I11.0 Hypertensive heart disease with heart failure; I47.2 Ventricular tachycardia; I42.6 Alcoholic cardiomyopathy; R45.851 Suicidal ideations; Z91.14 Patient's other noncompliance with medication regimen; E78.00 Pure hypercholesterolemia, unspecified; Z23 Encounter for immunization; G47.33 Obstructive sleep apnea (adult) (pediatric); R74.8 Abnormal levels of other serum enzymes; F41.9 Anxiety disorder, unspecified; F32.9 Major depressive disorder, single episode, unspecified; F10.24 Alcohol dependence with alcohol-induced mood disorder; Y90.0 Blood alcohol level of less than 20 mg/100 ml; Z79.82 Long term (current) use of aspirin
CPT/HCPCS: 36415; 70450; 71010; 80048; 80053; 80076; 80320; 80329; 82140; 82150; 83690; 83735; 84100; 84443; 84484; 85025; 85060; 85610; 85730; 87641; 90732; 92950; 93005; 94760; A9270-GY; G0480; J1644; J2060; J2405; J3010; J3475

== ENCOUNTER 2017-01-22 16:27 | Inpatient (IN) | payer OTHER ==
[2017-01-22] MEDS ORDERED: Acetaminophen TAB* 325 MG PO PRN (21:19)
[2017-01-22] MEDS ORDERED: Al Hydrox/Mg Hydrox/Simet LIQ* 30 ML UDC PO PRN (21:19)
[2017-01-22] MEDS: Metoprolol Tartrate TAB* 100 MG TAB PO SCH (21:59)
[2017-01-22] MEDS: hydrALAZINE TAB* 10 MG PO SCH (21:59)
[2017-01-22] MEDS ORDERED: LORazepam TAB(*) WAM SCALE 0-6 MG PO SCH (22:00)
[2017-01-22] MEDS ORDERED: cloNIDine 0.3 MG PATCH* 0.3 MG/24 HR 7 DAY PATCH TRANSDERM SCH (22:00)
[2017-01-22] MEDS ORDERED: LORazepam IM* PER WAM PARAMETERS IM SCH (22:00)
[2017-01-23] MEDS: Lisinopril TAB* 10 MG PO SCH (09:04)
[2017-01-23] MEDS: amLODIPine TAB* 5 MG PO SCH (09:05)
[2017-01-23] MEDS: Furosemide TAB* 20 MG PO SCH (09:06)
[2017-01-23] MEDS: Metoprolol Tartrate TAB* 100 MG TAB PO SCH ×2 (09:06→21:25)
[2017-01-23] MEDS: Thiamine TAB* 100 MG TAB PO SCH (09:06)
[2017-01-23] MEDS: hydrALAZINE TAB* 10 MG PO SCH ×3 (09:07→21:26)
[2017-01-23] MEDS: Vitamin THERAPEUTIC TAB PO SCH (09:07)
--- NOTE | 2017-01-23 15:24 | HP ---
Amended report to add co-signature to report. INITIAL PSYCHIATRIC ASSESSMENT: DATE OF ADMISSION: 01/22/17 DATE OF SERVICE: 01/23/17 IDENTIFYING INFORMATION: The patient is a 26-year-old white male admitted to this facility on 01/22/17. Admitting status is a voluntary status. The patient was seen and examined. The chart was reviewed and the case was discussed with clinical staff available at the time of the visit. SUPERVISING/ATTENDING PSYCHIATRIST: For this case is Dr. Gardner. CHIEF COMPLAINT/REASON FOR ADMISSION: The patient states "I made a choice to stop taking my meds." HISTORY OF PRESENT ILLNESS: The patient informs me that he was taking his medications until they ran out approximately 3 weeks ago. He had been drinking while on his antidepressant, sertraline 50 mg p.o. daily. He stated that he had experienced a rapid increase in the amount and frequency of his alcohol consumption going from approximately 4 to 5 beers per day up to 1 L of vodka per day. He was brought to the emergency department after he began to experience alcohol withdrawal, delirium, arrhythmia, and he apparently had also developed a seizure while in the emergency room. This prompted them to admit him to unit 4S. He expressed to nurses on the 4th floor that he was depressed and then he had felt hopeless, so a Psychiatric consult was ordered. He did admit to feeling of sadness on a regular basis. When I questioned him regarding the origin of his sadness, he acknowledged that he has probably felt sad most of his life; however, noticed that his depression worsened since his parents' breakup. He stated that he did have a counselor in the school but after he had left high school, he had never followed up with a counselor. He did admit to frequent thoughts of and suicidal ideation without a specific plan. When discussing his depression growing up, he does acknowledge that it had worsened since his parents broke up. He stated that "my father was my hero" and that he acknowledged that he was quite angry with his mother after his mother and father had . PAST PSYCHIATRIC HISTORY: The patient has been seeing Dr. López for a couple of visits. Dr. López was prescribing sertraline; however, Jerel acknowledges that he has no way of knowing if it was really working because he was drinking concurrently with the medication. He also acknowledges that "I could have been a lot more honest with the doctor." PAST MEDICAL HISTORY: Includes acute kidney injury, acute systolic congestive heart failure, and acute hypoxemic respiratory failure, as well as alcoholic hepatitis and dilated cardiomyopathy. PSYCHOSOCIAL HISTORY: The patient is single. He had been living by himself but he is planning to move in with his mother after rehab. He has no children. Education, he did go to the 12th grade and made approximately half way through. He did attempt college at [employer] for [employer]. He did go for almost one semester at which point his father became sick with cancer and he quit in an effort to remain at home to take care of his father. No legal history. FAMILY HISTORY OF PSYCHIATRIC ILLNESS: The patient reports that on his father' s side, he has had uncles and the paternal grandfather who has struggled with alcohol abuse. He states that his mother was a 0-gtjcg-[id number]-day wine drinker, but did not think that she had alcohol use disorder. He denies any attempted or completed suicides in his family. SUBSTANCE ABUSE HISTORY: The patient denies cigarette smoking. He admits to having experimented with marijuana when he was younger but currently denies any illicit drug use or abuse. As previously mentioned, he admits to having consumed 1 L of vodka per day for the past couple of weeks. REVIEW OF SYSTEMS: General: He denies fever, chills, or night sweats. HEENT: He denies any difficulty with changes in vision or hearing, chewing, or swallowing. Cardiovascular: Denies chest pain. Pulmonary: Denies shortness of breath. Gastrointestinal: Denies NVD. Genitourinary/Reproductive: Denies any issues. Neurologic: Denies any issues. Musculoskeletal: Denies any issues. Endocrine/Hematopoietic/Lymphatic: Denies any issues. PHYSICAL EXAMINATION GENERAL APPEARANCE: The patient is well-developed, well-nourished, alert, and cooperative, appears to be in no acute distress at the time of the exam. HEENT: Head is normocephalic, atraumatic. NECK: Normal on inspection. RESPIRATORY: No respiratory distress. Lungs clear in all molina. CARDIAC: Rate is 81, blood pressure 124/81. No rubs, gallops, or murmurs appreciated. ABDOMEN: Symmetrical without distention or guarding. Bowel sounds active in all quadrants. MUSCULOSKELETAL: The patient demonstrates full range of motion. NEUROLOGICAL: The patient is alert and oriented x3 with no focal neuro deficits. No evidence of periorbital tremor. Dyskinetic movements appreciated. SKIN: Intact, warm, and dry. MENTAL STATUS EXAM: The patient is of healthy build and appears to be his stated age with good grooming and hygiene noted. He is wearing blue jeans and a black T- shirt. On gross examination, he appears to have no physical deformities. He does wear an ear ring in his left ear and eye glasses. Attitude towards the examiner was pleasant and cooperative. He does ambulate with a steady gait. He did not appear to be demonstrating any noteworthy mannerisms, gestures, or tics. Activity level was within normal parameters with no overt evidence of psychomotor excitation or retardation appreciated. He is alert with no evidence of confusion or lack of proper association for person, place, or time noted. His speech was clear, coherent, goal directed, and spontaneous. He readily made eye contact. Self- reported mood was both depressed and anxious; however, he feels that both his depression and anxiety are coming under better control. His affect is consistent with self-reported mood. He denies visual or auditory hallucinations. No overt delusion or paranoid thought processes readily appreciated. Judgment and insight appear to be grossly intact. Impulse control of course is problematic related to drinking. Intellectual ability, general fund of knowledge, roughly average. The patient appeared to be a reliable historian as he was able to recall both recent and past events from his personal autobiographical history. Concentration and attention also appear to be grossly intact. He is currently denying suicidal or homicidal ideation and is future oriented. LABORATORY DATA: Review of laboratory data undertaken at this time, the following abnormals are noted: Hemoglobin is low at 13.9, hematocrit is low at 41, MCV is elevated at 96, MCH is elevated at 33, RDW is elevated at 17%, lymphocyte percentage is low at 16.8, monocyte percentage is elevated at 14.6, absolute monos are elevated at 0.9, neutrophil percentage is elevated at 89, banded neutrophils elevated at 9%, lymphocytes low at 7%, myelocytes elevated at 2%, nucleated RBCs elevated at 2. Chemistry studies demonstrate low chloride at 100, glucose elevation at 114, uric acid elevation at 10.1, ferritin elevation of greater than 1500, direct bilirubin elevation of 0.20. GGT elevation at 160. AST elevation at 59. C-reactive protein elevation at 10.25. Total protein low at 6.3. Lipase elevation at 273. CLINICAL IMPRESSION: The patient is a 26-year-old white male admitted to [facility] following severe alcohol withdrawal symptoms including seizure activity after being medically stabilized on 4S. The patient indicated that he would like to receive help for his depression and anxiety and alcohol use disorder. As a result, he did sign voluntarily into the behavioral services unit. Although he acknowledges being somewhat anxious about being here, he also articulates hope of receiving the care that he will need as to overcome his alcohol use disorder. ADMITTING DIAGNOSIS: Rule out major depressive disorder versus alcohol-induced mood disorder and alcohol use disorder. Rule out generalized anxiety disorder. PLAN OF TREATMENT: Admit to behavioral services unit. Diet is regular. Activity as tolerated with restrictions to the unit. We will restart the patient's Zoloft at 50 mg p.o. daily. Informed consent for same obtained from the patient. He will participate in treatment planning, activities, individual , group, and milieu therapy as well as medication management sessions and discharge planning until he is stable or referred to a higher level of care. TREATMENT GOAL: Stabilization. PROGNOSIS: Fair. ESTIMATED LENGTH OF STAY: Five to seven days. DISCHARGE CRITERIA: The patient will be discharged when he is no longer a risk to himself or others and has met the criteria set forth by the treatment team for discharge. This case was reviewed and discussed with Dr. Gardner, who concurred with assessment, clinical impression, and initial plan of treatment. LUIS FLOWERS, PRIVACY ATTORNEY [id number]/[facility] #: [id number] BRAIN
[2017-01-23] MEDS ORDERED: Nitroglycerin TAB 0.4 MG* 0.4 MG TAB SL PRN (22:49)
--- NOTE | 2017-01-24 00:30 | CONSULT ---
Consult Consult: PCP: Robert López MD Date/Time of Evaluation: 01/22/2017 2300 Reason for Consult: chest pain HPI: Mr Mei is a 26YO male HX alcoholic cardiomyopathy EF 20% & alcohol withdrawal seizures who developed a withdrawal seizure in [facility] 01/16/2017 precipitating an episode of pulseless VT for which ACLS protocol was followed. He had return of circulation following defibrillation and was monitored in the ICU until cleared for the U. He developed non-exertional, non-radiating sharp B lower chest pain ~30 minutes prior without SOB, N/V, palpitations, light- headedness, or sweating. The pain is worse with inspiration and light palpation. PMedHx alcoholic cardiomyopathy EF 20% congestive heart failure alcoholism HTN depression Medications Acetaminophen (Tylenol Tab*) 650 mg PO Q4H PRN PRN Reason: PAIN or TEMP > 101 F Al Hydrox/Mg Hydrox/Simethicone (Maalox Plus*) 30 ml PO Q4H PRN PRN Reason: INDIGESTION Amlodipine Besylate (Norvasc Tab*) 10 mg PO DAILY [facility] Last Admin: 01/23/17 09:05 Dose: 10 mg Clonidine HCl (Ojaoqswa-Ptp-6 0.3 Mg Patch*) 0.3 mg TRANSDERM Q7D [facility] Last Admin: 01/22/17 21:58 Dose: 0.3 mg Furosemide (Lasix Tab*) 20 mg PO DAILY [facility] Last Admin: 01/23/17 09:06 Dose: 20 mg Hydralazine HCl (Apresoline Tab*) 20 mg PO TID [facility] Last Admin: 01/23/17 21:26 Dose: 20 mg Lisinopril (Prinivil Tab*) 40 mg PO DAILY [facility] Last Admin: 01/23/17 09:04 Dose: 40 mg Lorazepam (Ativan Inj*) 0 - 6 mg IM .PER WAM PARAMETERS [facility] PRN Reason: Protocol Lorazepam (Ativan Tab(*)) 0 - 6 mg PO .PER WAM PARAMETERS [facility] PRN Reason: Protocol Metoprolol Tartrate (Lopressor Tab*) 100 mg PO Q12HR [facility] Last Admin: 01/23/17 21:25 Dose: 100 mg Multivitamins (Theragran Tab*) 1 tab PO DAILY [facility] Last Admin: 01/23/17 09:07 Dose: 1 tab Nitroglycerin (Nitroglycerin Tab 0.4 Mg*) 0.4 mg SL Q5M PRN PRN Reason: CHEST PAIN X3 DOSES Last Admin: 01/23/17 22:56 Dose: 0.4 mg Sertraline HCl (Zoloft*) 100 mg PO DAILY [facility] Sertraline HCl (Zoloft*) 50 mg PO DAILY [facility] Stop: 01/26/17 09:01 Thiamine HCl (Vitamin B-1 Tab*) 100 mg PO DAILY [facility] Last Admin: 01/23/17 09:06 Dose: 100 mg Allergies No Known Allergies Allergy (Verified 04/27/16 15:18) SocHx: denies tobacco and recreational drugs, active alcoholism; 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; full code status FamHx: Mother: HTN; Father: passed of lung CA; Grandfather: early onset CAD ROS: as above, otherwise reviewed and all were negative Constitutional: NAD, normally developed, obese white male lying comfortably in his [facility] bed vitals: Vital Signs Temp 36.6 C 01/23/17 22:39 Pulse 81 01/23/17 22:55 Resp 18 01/23/17 22:55 BP 116/74 01/23/17 22:55 Pulse Ox 99 01/23/17 22:55 HEENM: atraumatic; sclera/conjunctiva: non-icteric/clear; hearing: clinically intact; oropharynx: clear, mucosa moist Neck: soft tissue: non-tender; thyroid: normal Pulmonary: clear to auscultation bilaterally, good aeration, no accessory muscle use CV: RR/RR, normal S1S2, no carotid bruit, no jugular venous distention, 2+ B DP/ PT, no edema; pain is exactly reproduced per patient by light palpation of B inferior ribs Abdominal: soft, non-distended, non-tender, no rebound/guarding/rigidity, normoactive bowel sounds, no hepatosplenomegaly or masses, no costovertebral angle tenderness Musculoskeletal: general: grossly intact; gait: stable Integumental: normal appearance and texture of exposed skin Psychiatric orientation: AA&O to PPS affect: calm mood: cooperative eye contact: good content: reliable responses: timely insight: good Testing: Lab Results 01/23/17 Range/Units 23:08 Troponin I 0.00 (<0.04) ng/mL ECG, personally reviewed: NSR rate 69, diffuse non-diagnostic ST-T abnormalities similar to previous Impression: 26M HX alcoholic cardiomyopathy EF 20% reporting atypical chest pain DIAGNOSIS & PLAN Primary chest wall pain : unclear etiology, denies cough/sneeze or change in activity/exercise : pain control via non-narcotic means : will continue to follow alcoholic cardiomyopathy EF 20% : abstinence essential : continue ACEI & BB Secondary HTN : continue current regimen
[2017-01-24] MEDS: Thiamine TAB* 100 MG TAB PO SCH (08:01)
[2017-01-24] MEDS: Sertraline* 50 MG TAB PO SCH (08:01)
[2017-01-24] MEDS: Metoprolol Tartrate TAB* 100 MG TAB PO SCH ×2 (08:01→21:22)
[2017-01-24] MEDS: Lisinopril TAB* 10 MG PO SCH (08:02)
[2017-01-24] MEDS: hydrALAZINE TAB* 10 MG PO SCH ×3 (08:02→21:22)
[2017-01-24] MEDS: amLODIPine TAB* 5 MG PO SCH (08:02)
[2017-01-24] MEDS: Vitamin THERAPEUTIC TAB PO SCH (08:03)
[2017-01-24] MEDS: Furosemide TAB* 20 MG PO SCH (08:03)
--- NOTE | 2017-01-24 13:34 | PN ---
Subjective Date of Service: 01/24/17 Interval History: Patient seen and examined. Pt states that he continues to have non-exertional, non-radiating bilateral lower chest pain. Pt reports this is worse when he moves the wrong way. Denies fever, chills, shortness of breath, palpitations, lightheadedness or diaphoresis. Pain is worse with palpation. He also feels that the pain is worse after eating lunch (quiche). Pt also states that he doesn 't want to take any more SL Nitro as he doesn't like how it makes him feel. Family History: Unchanged from Admission Social History: Unchanged from Admission Past Medical History: Unchanged from Admission Objective Active Medications: Acetaminophen (Tylenol Tab*) 650 mg PO Q4H PRN Reason: PAIN or TEMP > 101 F Al Hydrox/Mg Hydrox/Simethicone (Maalox Plus*) 30 ml PO Q4H PRN Reason: INDIGESTION Amlodipine Besylate (Norvasc Tab*) 10 mg PO DAILY [facility] Clonidine HCl (Pxpsqxxq-Xmf-2 0.3 Mg Patch*) 0.3 mg TRANSDERM Q7D [facility] Furosemide (Lasix Tab*) 20 mg PO DAILY [facility] Hydralazine HCl (Apresoline Tab*) 20 mg PO TID [facility] Lisinopril (Prinivil Tab*) 40 mg PO DAILY [facility] Lorazepam (Ativan Inj*) 0 - 6 mg IM .PER WAM PARAMETERS [facility] Reason: Protocol Lorazepam (Ativan Tab(*)) 0 - 6 mg PO .PER WAM PARAMETERS [facility] Reason: Protocol Metoprolol Tartrate (Lopressor Tab*) 100 mg PO Q12HR [facility] Multivitamins (Theragran Tab*) 1 tab PO DAILY [facility] Nitroglycerin (Nitroglycerin Tab 0.4 Mg*) 0.4 mg SL Q5M PRN Reason: CHEST PAIN X3 DOSES Sertraline HCl (Zoloft*) 100 mg PO DAILY [facility] Sertraline HCl (Zoloft*) 50 mg PO DAILY [facility] Stop: 01/26/17 09:01 Thiamine HCl (Vitamin B-1 Tab*) 100 mg PO DAILY [facility] Vital Signs 01/23/17 01/23/17 01/23/17 15:52 18:00 21:27 Temperature Pulse Rate 84 Respiratory 16 16 Rate Blood Pressure 123/78 (mmHg) O2 Sat by Pulse 100 Oximetry 01/23/17 01/23/17 01/23/17 22:39 22:40 22:55 Temperature 98 F Pulse Rate 81 81 Respiratory 18 18 18 Rate Blood Pressure 120/72 116/74 (mmHg) O2 Sat by Pulse 99 99 Oximetry 01/24/17 01/24/17 01/24/17 07:12 07:40 10:17 Temperature 97.8 F Pulse Rate 84 Respiratory 16 16 16 Rate Blood Pressure 120/71 (mmHg) O2 Sat by Pulse 100 Oximetry 01/24/17 01/24/17 11:00 11:23 Temperature Pulse Rate 74 Respiratory 16 Rate Blood Pressure 111/67 (mmHg) O2 Sat by Pulse Oximetry Oxygen Devices in Use Now: None Appearance: NAD, walking in halls Eyes: No Scleral Icterus Respiratory: Symmetrical Chest Expansion and Respiratory Effort, Clear to Auscultation Cardiovascular: NL Sounds; No Murmurs; No JVD, RRR, - - Pain is reproducible per patient by palpation at bilateral inferior ribs Abdominal: NL Sounds; No Tenderness; No Distention Extremities: No Edema Neurological: Alert and Oriented x 3, NL Muscle Strength and Tone Nutrition: Taking PO's Assess/Plan/Problems-Billing Assessment: Mr. Mei is a 26 yo male with PMH significant for alcoholic cardiomyopathy, EF 20% who is a patient on BSU. The hospitalists were asked to consult regarding atypical chest discomfort. - Patient Problems (1) Atypical chest pain Code(s): R07.89 - OTHER CHEST PAIN SNOMED Code(s): 028142246 Comment: - Pain is reporducible. Suspect this may be muscular in nature - Reports increase in discomfort after lunch, will try mylanta - Trop 0.00 - EKG ovenight NSR, rate 69 and diffuse non-diagnostic ST-T abnormalities, similar to previous EKGs - Non-narcotic pain control (2) Dilated cardiomyopathy secondary to alcohol Code(s): I42.6 - ALCOHOLIC CARDIOMYOPATHY SNOMED Code(s): 26332547 Comment: - Continue lisinopril 40mg daily, metoprolol tartrate 100mg q12hr and Lasix. - No signs of heart failure at this time. (3) HTN (hypertension) Code(s): I10 - ESSENTIAL (PRIMARY) HYPERTENSION SNOMED Code(s): 27152516 Comment: - Normotensive - Continue current regimen (4) Full code status Code(s): Z78.9 - OTHER SPECIFIED HEALTH STATUS SNOMED Code(s): 915816844 Status and Disposition: Inpatient. Disposition per Psychiatry
[2017-01-25] MEDS: Vitamin THERAPEUTIC TAB PO SCH (09:17)
[2017-01-25] MEDS: Lisinopril TAB* 10 MG PO SCH (09:17)
[2017-01-25] MEDS: Thiamine TAB* 100 MG TAB PO SCH (09:18)
[2017-01-25] MEDS: amLODIPine TAB* 5 MG PO SCH (09:18)
[2017-01-25] MEDS: hydrALAZINE TAB* 10 MG PO SCH ×3 (09:18→20:17)
[2017-01-25] MEDS: Sertraline* 50 MG TAB PO SCH (09:19)
[2017-01-25] MEDS: Furosemide TAB* 20 MG PO SCH (09:19)
[2017-01-25] MEDS: Metoprolol Tartrate TAB* 100 MG TAB PO SCH ×2 (09:20→20:17)
--- NOTE | 2017-01-25 12:02 | PN ---
[facility]: Group Therapy Note - Service Type Service Type: 82022 Group Psychotherapy - Cognitive Behavioral Group Therapy ( CBT):Patient was attentive and participatory in CBT programming this morning, and remained in good behavioral control. Patient expressed positive insights regarding relevant treatment interventions and goals.
--- NOTE | 2017-01-25 12:38 | PN ---
Subjective - Subjective Service Type: [id number] Hosp care 15 min low complexity Subjective: Althea reports "doing a lot better." He denies feeling depressed or having emotional pain, feels good about being alive. Agrees with Zoloft treatment and speculates it may actually work if taken while not drinking. Says his thinking is much clearer and he's ready to engage in rehab. His mom expressed appreciation for his care here and support of overall plan. Objective - Appearance Appearance: Obese Hygiene: Normal Grooming: Well Kept - Behavior Psychomotor Activities: Normal - Attitude and Relatedness Attitude and Relatedness: Cooperative Eye Contact: Good - Speech Quality: Unpressured Latencies: Normal Quantity: Appropriate - Mood Patient's Decription of Mood: "Okay" - Affect Observed Affect: Non-labile Affect Consistent with: Euthymia - Thought Process Patient's Thought Process: Coherent Thought Content: No Passive Wish, No Suicidal Planning, No Homicidal Ideation, No Paranoid Ideation - Sensorium Experiencing Hallucinations: No, Sensorium is Clear - Level of Consciousness Level of Consciousness: Alert - Impulse Control Impulse Control: Intact - Insight and Judgement Insight and Judgement: Good Assessment - Assessment Merits Inpatient Hospitalization: To Initiate Treatment, For Ongoing Evaluation , Consolidate Improvements, For Discharge Planning Inpatient DSM-IV Dx: Alcohol use disorder with induced mood symptoms, and severe withdrawal with delirium Clinical Impression: Tbxwny[age]tfewe-tita-old male with severe chronic alcohol use disorder and heavy health consequences who presented in withdrawal developing seizures and delirium tremens with medical comorbidity of severe life threatening (pulseless ) arrhythmia. He was stabilized out of acute withdrawal, but still had some residual cognitive symptoms suggestive of delirium (impaired concentration, poor orientation). He was admitted voluntarily to psychiatry. Stabilized here. Mood symptoms are basically corrected, suggesting clear alcohol related problem. He is safe on checks, active and cooperative, free of suicidal ideation. Medication management restarts Zoloft for depression and anxiety; [facility] protocol for withdrawal symptoms was in place, but not needed. Hospitalist consultation obtained for evaluation of chest pain, which was reassuringly determined to be atypical. Appropriate to proceed with rehab referrals. Plan - Plan Treatment Plan: Name: ALTHEA WARD Birthdate: 1990 [id number] Continued Medication Management: Start Medication Medications: Current Medications Acetaminophen (Tylenol Tab*) 650 mg PO Q4H PRN PRN Reason: PAIN or TEMP > 101 F Al Hydrox/Mg Hydrox/Simethicone (Maalox Plus*) 30 ml PO Q4H PRN PRN Reason: INDIGESTION Last Admin: 01/24/17 12:46 Dose: 30 ml Amlodipine Besylate (Norvasc Tab*) 10 mg PO DAILY [facility] Last Admin: 01/25/17 09:18 Dose: 10 mg Clonidine HCl (Xpifqlcs-Oll-4 0.3 Mg Patch*) 0.3 mg TRANSDERM Q7D [facility] Last Admin: 01/22/17 21:58 Dose: 0.3 mg Furosemide (Lasix Tab*) 20 mg PO DAILY [facility] Last Admin: 01/25/17 09:19 Dose: 20 mg Hydralazine HCl (Apresoline Tab*) 20 mg PO TID [facility] Last Admin: 01/25/17 09:18 Dose: 20 mg Lisinopril (Prinivil Tab*) 40 mg PO DAILY [facility] Last Admin: 01/25/17 09:17 Dose: 40 mg Lorazepam (Ativan Inj*) 0 - 6 mg IM .PER WAM [employer] [facility] PRN Reason: Protocol Lorazepam (Ativan Tab(*)) 0 - 6 mg PO .PER WAM [employer] [facility] PRN Reason: Protocol Metoprolol Tartrate (Lopressor Tab*) 100 mg PO Q12HR [facility] Last Admin: 01/25/17 09:20 Dose: 100 mg Multivitamins (Theragran Tab*) 1 tab PO DAILY [facility] Last Admin: 01/25/17 09:17 Dose: 1 tab Nitroglycerin (Nitroglycerin Tab 0.4 Mg*) 0.4 mg SL Q5M PRN PRN Reason: CHEST PAIN X3 DOSES Last Admin: 01/23/17 22:56 Dose: 0.4 mg Sertraline HCl (Zoloft*) 100 mg PO DAILY [facility] Sertraline HCl (Zoloft*) 50 mg PO DAILY [facility] Stop: 01/26/17 09:01 Last Admin: 01/25/17 09:19 Dose: 50 mg Thiamine HCl (Vitamin B-1 Tab*) 100 mg PO DAILY [facility] Last Admin: 01/25/17 09:18 Dose: 100 mg - Discharge Plan Discharge Plan: Drug/Alcohol Rehab
--- NOTE | 2017-01-25 16:33 | PN ---
Progress Note - Progress Note Note: Patient seen 01/24 for chest pain, felt to be chest wall. Patient describes bilateral lower rib pain exacerbated by moving his arms or taking a deep breath. The pain is still present but slowly subsiding. He looks well. He has a severe cardiomyopathy on echo 04/2016, never went for the recommended followup. I have ordered a TTE for 01/26 fo re-assess this as this would have a significant impact on his medical treatment.
[2017-01-26] MEDS: Vitamin THERAPEUTIC TAB PO SCH (08:55)
[2017-01-26] MEDS: Thiamine TAB* 100 MG TAB PO SCH (08:55)
[2017-01-26] MEDS: Sertraline* 50 MG TAB PO SCH (08:55)
[2017-01-26] MEDS: amLODIPine TAB* 5 MG PO SCH (08:56)
[2017-01-26] MEDS: Lisinopril TAB* 10 MG PO SCH (08:57)
[2017-01-26] MEDS: hydrALAZINE TAB* 10 MG PO SCH ×3 (08:58→21:51)
[2017-01-26] MEDS: Metoprolol Tartrate TAB* 100 MG TAB PO SCH ×2 (08:59→21:51)
[2017-01-26] MEDS: Furosemide TAB* 20 MG PO SCH (08:59)
--- NOTE | 2017-01-26 09:52 | ECHO ---
Patient: ALTHEA WARD [facility] Rec#: [id number] : 1990 Date: 01/26/2017 Age: 26y Height: 175.26 cm / 69.0 in Weight: 95.25 kg / 209.9 lbs Sex: M BSA: 2.11 Room#: 206 Admit Date#: 01/22/2017 Type: Inpatient Referring: Nas Moss MD Reading: Althea Simmons DO Magazine Worker: Sharon Becerra,RDCS,RDMS CC: Rene HONG,Samason Transthoracic Echocardiogram Indication: Cardiomyopathy BP: 119/66 HR: 73 Rhythm: NSR Indications Cardiomyopathy Findings History: Cardiomyopathy, ETOH, Vtach. Technical Comments: The study quality is good. Left Ventricle: The left ventricular chamber size is normal. Mild concentric left ventricular hypertrophy is observed. There is diffuse global hypokinesis of the left ventricle. There is moderately decreased left ventricular systolic function. The estimated ejection fraction is 35-40%. Abnormal left ventricular diastolic filling is observed, consistent with impaired relaxation. Left Atrium: The left atrial chamber size is normal. Right Ventricle: The right ventricular chamber size and systolic function are within normal limits. Right Atrium: The right atrial cavity size is normal. Aortic Valve: The aortic valve is trileaflet. There is a trace of aortic regurgitation. There is no evidence of aortic stenosis. Mitral Valve: The mitral valve leaflets appear normal. There is a trace of mitral regurgitation. There is no evidence of mitral stenosis. Tricuspid Valve: The tricuspid valve leaflets are normal. There is trace tricuspid regurgitation. Unable to estimate the right ventricular systolic pressure. Pulmonic Valve: The pulmonic valve appears normal. There is a trace pulmonic regurgitation. Pericardium: There is no significant pericardial effusion. Aorta: The aortic root appears normal. There is no dilatation of the aortic arch. Pulmonary Artery: The main pulmonary artery is not well visualized. Venous: The inferior vena cava appears normal in size. There is an approximate 50% respiratory change in the inferior vena cava dimension. Conclusions The left ventricular chamber size is normal. Mild concentric left ventricular hypertrophy is observed. There is diffuse global hypokinesis of the left ventricle. There is moderately decreased left ventricular systolic function. The estimated LV ejection fraction is 35-40%. The left atrial chamber size is normal. The right ventricular chamber size and systolic function are within normal limits. No significant valvular abnormalities noted. Compared to prior study from 06/2016, the LVEF has improved, was 20-25% then Measurements Name Value Normal Range RVIDd (AP) 2D 2.3 cm (0.9 - 2.6) RVDdMajor (2D) 2.6 cm (2.2 - 4.4) RAd ISD 4CH 4.1 cm (3.4 - 4.9) RA (A4C)W 3.8 cm (2.9 - 4.6) IVSd (2D) 1.2 cm (0.6 - 1) LVPWd (2D) 1.4 cm (0.6 - 1) LVIDd (2D) 4.6 cm (3.6 - 5.4) LVIDs (2D) 3.5 cm - LV FS (2D) 25 % (25 - 45) Aortic Annulus 2.4 cm (1.4 - 2.6) Ao root diameter (2D) 2.9 cm (2.1 - 3.5) Ascending Ao 3 cm (2.1 - 3.4) Aortic arch 2.7 cm (1.8 - 3.4) LA dimension (AP) 2D 3.5 cm (2.3 - 3.8) LAd ISD 4CH 4.6 cm (2.9 - 5.3) LA ISD 4CH W 4.1 cm (2.5 - 4.5) Name Value Normal Range LA ESV SP 4CH (A/L) 34.54 ml - LA ESV SP 2CH (A/L) 41.37 ml - LA ESV BP (A/L) 38.45 ml - LA ESV BP (A/L) index 18 ml/m2 - LA ESV SP 4CH (MOD) 31.28 ml - LA ESV SP 2CH (MOD) 37.75 ml - LV EDV SP 4CH (MOD) 170.03 ml - LV ESV SP 4CH (MOD) 107.3 ml - EF SP 4CH (MOD) 36.89 % - Name Value Normal Range MV E-wave Vmax 0.4 m/sec - MV deceleration time 186 msec - MV A-wave Vmax 0.5 m/sec - MV E:A ratio 0.8 ratio - P. vein S-wave Vmax 0.5 m/sec - P. vein D-wave Vmax 0.5 m/sec - P. vein A-wave duration 90 msec - LV septal e' Vmax 0.05 m/sec - LV lateral e' Vmax 0.06 m/sec - LV E:e' septal ratio 8 ratio - LV E:e' lateral ratio 7 ratio - Name Value Normal Range AV Vmax 1.1 m/sec - AV VTI 20 cm - AV peak gradient 5 mmHg - AV mean gradient 2.8 mmHg - LVOT Vmax 0.9 m/sec - LVOT VTI 14.4 cm - LVOT peak gradient 3.2 mmHg - LVOT mean gradient 2 mmHg - SAGAR Vmax 1.3 m/sec - Name Value Normal Range RAP 8 mmHg - IVC diameter 1.5 cm - Name Value Normal Range PV Vmax 0.8 m/sec - PV peak gradient 2.6 mmHg -
--- NOTE | 2017-01-26 13:17 | PN ---
Subjective - Subjective Service Type: 01945 Hosp care 15 min low complexity Subjective: Althea denied any problems, reports good mood and outlook, clear thinking, and readiness to engage in rehab. Denied side effects with Zoloft. Objective - Appearance Appearance: Obese Hygiene: Normal Grooming: Well Kept - Behavior Psychomotor Activities: Normal - Attitude and Relatedness Attitude and Relatedness: Cooperative Eye Contact: Good - Speech Quality: Unpressured Latencies: Normal Quantity: Terse - Mood Patient's Decription of Mood: "Good" - Affect Observed Affect: Non-labile Affect Consistent with: Euthymia - Thought Process Patient's Thought Process: Coherent Thought Content: No Passive Wish, No Suicidal Planning, No Homicidal Ideation, No Paranoid Ideation - Sensorium Experiencing Hallucinations: No, Sensorium is Clear - Level of Consciousness Level of Consciousness: Alert - Impulse Control Impulse Control: Intact - Insight and Judgement Insight and Judgement: Fair Assessment - Assessment Merits Inpatient Hospitalization: To Initiate Treatment, For Ongoing Evaluation , Consolidate Improvements, For Discharge Planning Inpatient DSM-IV Dx: Alcohol use disorder with induced mood symptoms, and severe withdrawal with delirium Clinical Impression: Nzctzk-ruakm-pmpv-old male with severe chronic alcohol use disorder and heavy health consequences who presented in withdrawal developing seizures and delirium tremens with medical comorbidity of severe life threatening (pulseless ) arrhythmia. He was stabilized out of acute withdrawal, but still had some residual cognitive symptoms suggestive of delirium (impaired concentration, poor orientation). He was admitted voluntarily to psychiatry. Stabilized here. Mood symptoms remain corrected, suggesting clear alcohol related problem. He is safe on checks, active and cooperative, free of suicidal ideation. Medication management restarts Zoloft for depression and anxiety; he does not need any further medical detoxification. Hospitalist consultation obtained for evaluation of chest pain, which was reassuringly determined to be atypical. Appropriate to proceed with rehab referrals. Plan - Plan Treatment Plan: Name: ALTEHA WARD Birthdate: 1990 [id number] Continued Medication Management: Start Medication Medications: Current Medications Acetaminophen (Tylenol Tab*) 650 mg PO Q4H PRN PRN Reason: PAIN or TEMP > 101 F Al Hydrox/Mg Hydrox/Simethicone (Maalox Plus*) 30 ml PO Q4H PRN PRN Reason: INDIGESTION Last Admin: 01/24/17 12:46 Dose: 30 ml Amlodipine Besylate (Norvasc Tab*) 10 mg PO DAILY [facility] Last Admin: 01/26/17 08:56 Dose: 10 mg Clonidine HCl (Fnjzhibp-Clh-3 0.3 Mg Patch*) 0.3 mg TRANSDERM Q7D [facility] Last Admin: 01/22/17 21:58 Dose: 0.3 mg Furosemide (Lasix Tab*) 20 mg PO DAILY [facility] Last Admin: 01/26/17 08:59 Dose: 20 mg Hydralazine HCl (Apresoline Tab*) 20 mg PO TID [facility] Last Admin: 01/26/17 08:58 Dose: 20 mg Lisinopril (Prinivil Tab*) 40 mg PO DAILY [facility] Last Admin: 01/26/17 08:57 Dose: 40 mg Lorazepam (Ativan Inj*) 0 - 6 mg IM .PER W[employer] [facility] PRN Reason: Protocol Lorazepam (Ativan Tab(*)) 0 - 6 mg PO .PER [employer] [facility] PRN Reason: Protocol Metoprolol Tartrate (Lopressor Tab*) 100 mg PO Q12HR [facility] Last Admin: 01/26/17 08:59 Dose: 100 mg Multivitamins (Theragran Tab*) 1 tab PO DAILY [facility] Last Admin: 01/26/17 08:55 Dose: 1 tab Nitroglycerin (Nitroglycerin Tab 0.4 Mg*) 0.4 mg SL Q5M PRN PRN Reason: CHEST PAIN X3 DOSES Last Admin: 01/23/17 22:56 Dose: 0.4 mg Sertraline HCl (Zoloft*) 100 mg PO DAILY [facility] Thiamine HCl (Vitamin B-1 Tab*) 100 mg PO DAILY [facility] Last Admin: 01/26/17 08:55 Dose: 100 mg - Discharge Plan Discharge Plan: Drug/Alcohol Rehab
--- NOTE | 2017-01-26 16:18 | PN ---
Subjective Date of Service: 01/26/17 Interval History: HOSPITALIST PROGRESS NOTE Patient seen and examined at bedside. He still has some chest discomfort with movement, but offers no other complaints. Family History: Unchanged from Admission Social History: Unchanged from Admission Past Medical History: Unchanged from Admission Objective Active Medications: Acetaminophen (Tylenol Tab*) 650 mg PO Q4H PRN PRN Reason: PAIN or TEMP > 101 F Al Hydrox/Mg Hydrox/Simethicone (Maalox Plus*) 30 ml PO Q4H PRN PRN Reason: INDIGESTION Last Admin: 01/24/17 12:46 Dose: 30 ml Amlodipine Besylate (Norvasc Tab*) 10 mg PO DAILY [facility] Last Admin: 01/26/17 08:56 Dose: 10 mg Clonidine HCl (Yvpjztxq-Uee-8 0.3 Mg Patch*) 0.3 mg TRANSDERM Q7D [facility] Last Admin: 01/22/17 21:58 Dose: 0.3 mg Furosemide (Lasix Tab*) 20 mg PO DAILY [facility] Last Admin: 01/26/17 08:59 Dose: 20 mg Hydralazine HCl (Apresoline Tab*) 20 mg PO TID [facility] Last Admin: 01/26/17 13:55 Dose: 20 mg Lisinopril (Prinivil Tab*) 40 mg PO DAILY [facility] Last Admin: 01/26/17 08:57 Dose: 40 mg Metoprolol Tartrate (Lopressor Tab*) 100 mg PO Q12HR [facility] Last Admin: 01/26/17 08:59 Dose: 100 mg Multivitamins (Theragran Tab*) 1 tab PO DAILY [facility] Last Admin: 01/26/17 08:55 Dose: 1 tab Nitroglycerin (Nitroglycerin Tab 0.4 Mg*) 0.4 mg SL Q5M PRN PRN Reason: CHEST PAIN X3 DOSES Last Admin: 01/23/17 22:56 Dose: 0.4 mg Sertraline HCl (Zoloft*) 100 mg PO DAILY [facility] Thiamine HCl (Vitamin B-1 Tab*) 100 mg PO DAILY [facility] Last Admin: 01/26/17 08:55 Dose: 100 mg Vital Signs 01/25/17 01/26/17 01/26/17 19:27 06:47 07:50 Temperature 98.3 F Pulse Rate 80 Respiratory 18 16 16 Rate Blood Pressure 134/79 (mmHg) O2 Sat by Pulse 100 Oximetry Oxygen Devices in Use Now: None Appearance: Young male sitting up in a chair in NAD. Eyes: No Scleral Icterus Ears/Nose/Mouth/Throat: Mucous Membranes Moist Neck: Trachea Midline Respiratory: Symmetrical Chest Expansion and Respiratory Effort, Clear to Auscultation Cardiovascular: RRR - Normal S1 and S2 Neurological: Alert and Oriented x 3, NL Muscle Strength and Tone Nutrition: Taking PO's Assess/Plan/Problems-Billing Assessment: Mr. Mei is a 26 yo male with PMH significant for alcoholic cardiomyopathy, EF 20% who is a patient on BSU. The hospitalists were asked to consult regarding atypical chest discomfort. - Patient Problems (1) Atypical chest pain Comment: - Suspect pain is musculoskeletal in nature. - EKG showed no new changes and troponin was negative. - Can have Tylenol as needed for pain. (2) Alcoholic cardiomyopathy Comment: - Echocardiogram showed EF 35-40% with diffuse global hypokinesis - improved when compared to echo from 06/26 (EF was 20% at that time). - Continue Metoprolol and Lisinopril. - Lengthy conversation with patient re: ETOH abuse and heart disease. He's very motivated to quit at this time. (3) Sustained ventricular tachycardia Comment: - Patient was educated about Vtach and encouraged to follow up with Dr. Montiel when his discharged from rehab. - Dr. Auguste discussed his case with Cardiology - patient is not a candidate for ICD due to his ongoing ETOH abuse. His EF is improved when compared with . - Continue Metoprolol. Status and Disposition: Patient is medically stable. Hospitalist service will sign off. Please don't hesitate to call with any questions.
[2017-01-27 08:00] VITALS: BP 129/73
[2017-01-27] MEDS: amLODIPine TAB* 5 MG PO SCH (08:33)
[2017-01-27] MEDS: hydrALAZINE TAB* 10 MG PO SCH (08:34)
[2017-01-27] MEDS: Furosemide TAB* 20 MG PO SCH (08:34)
[2017-01-27] MEDS: Vitamin THERAPEUTIC TAB PO SCH (08:34)
[2017-01-27] MEDS: Metoprolol Tartrate TAB* 100 MG TAB PO SCH (08:35)
[2017-01-27] MEDS: Lisinopril TAB* 10 MG PO SCH (08:35)
[2017-01-27] MEDS: Thiamine TAB* 100 MG TAB PO SCH (08:35)
[2017-01-27] MEDS ORDERED: Sertraline* 100 MG TAB PO SCH (09:00)
--- NOTE | 2017-01-27 09:48 | DS ---
Subjective - Subjective Service Types: [id number] [facility] Day Mgmt simple under 30 min Discharge Date: 01/27/17 Subjective: Jerel reports readiness for rehab. He denies any setbacks or distress, and feels good about being alive. We reviewed medication and aftercare plan. He said he sees no barriers to care, and expects to have the resources and support needed for sobriety, which he regards as a high priority. Objective - Appearance Appearance: Obese Hygiene: Normal Grooming: Well Kept - Behavior Psychomotor Activities: Normal - Attitude and Relatedness Attitude and Relatedness: Appropriate Eye Contact: Good - Speech Quality: Unpressured Latencies: Normal Quantity: Appropriate - Mood Patient's Decription of Mood: "Okay" - Affect Observed Affect: Non-labile Affect Consistent with: Euthymia - Thought Process Patient's Thought Process: Coherent Thought Content: No Passive Wish, No Suicidal Planning, No Homicidal Ideation, No Paranoid Ideation - Sensorium Experiencing Hallucinations: No, Sensorium is Clear - Level of Consciousness Level of Consciousness: Alert - Impulse Control Impulse Control: Intact - Insight and Judgement Insight and Judgement: Fair Treatment Course & Assessment Clinical Course & Impression: Avarhq-ygdjs-xtcw-old male with severe chronic alcohol use disorder and heavy health consequences who presented in withdrawal developing seizures and delirium tremens with medical comorbidity of severe life threatening (pulseless ) arrhythmia. He was stabilized out of acute withdrawal, but still had some residual cognitive symptoms suggestive of delirium (impaired concentration, poor orientation). He was admitted voluntarily to psychiatry. 01/27/17 - Clear for release. Jerel rapidly stabilized here. He had major improvements in mood and cognitive function. Mood symptoms are sub-clinical now, suggesting clear alcohol related problem. His thinking and concentration improved - as did his overt relatedness and "sharpness." He was safe on all checks, active and cooperative, consistently free of suicidal ideation. Medication management restarted Zoloft for depression and anxiety; he did not need any further medical detoxification. Hospitalist consultation obtained for evaluation of chest pain, which was reassuringly determined to be atypical; he was medically cleared for release ( discussed with Dr. Kelley 01/27 and we collaborated on all medications for the discharge medication plan). It is appropriate to proceed with rehab admission today. Risk concern centered on recent suicidal ideation, and his voluntarily stopping his somatic medications in recent weeks to give up on life. He had no suicidal behavior of immediate expected lethality. His chronic risk of suicide is elevated due to his history and conditions. Acute risk is assessed as low on basis of the correction of impairment, and his very low current symptom burden. Clear for Discharge: Adequate Clinical Respons, Acceptable Safety Profile, Low Utility of In Care Inpatient DSM-IV Dx: Alcohol use disorder with induced mood symptoms, and severe withdrawal with delirium Discharge Planning - Discharge Planning Discharge Plan: Drug/Alcohol Rehab Recommendations for Continuing Care: Medication Management, Substance Abuse Counseling Medications: Current Medications Acetaminophen (Tylenol Tab*) 650 mg PO Q4H PRN PRN Reason: PAIN or TEMP > 101 F Al Hydrox/Mg Hydrox/Simethicone (Maalox Plus*) 30 ml PO Q4H PRN PRN Reason: INDIGESTION Last Admin: 01/24/17 12:46 Dose: 30 ml Amlodipine Besylate (Norvasc Tab*) 10 mg PO DAILY [facility] Last Admin: 01/27/17 08:33 Dose: 10 mg Clonidine HCl (Znwjzwrt-Bvd-6 0.3 Mg Patch*) 0.3 mg TRANSDERM Q7D [facility] Last Admin: 01/22/17 21:58 Dose: 0.3 mg Furosemide (Lasix Tab*) 20 mg PO DAILY [facility] Last Admin: 01/27/17 08:34 Dose: 20 mg Hydralazine HCl (Apresoline Tab*) 20 mg PO TID [facility] Last Admin: 01/27/17 08:34 Dose: 20 mg Lisinopril (Prinivil Tab*) 40 mg PO DAILY [facility] Last Admin: 01/27/17 08:35 Dose: 40 mg Metoprolol Tartrate (Lopressor Tab*) 100 mg PO Q12HR [facility] Last Admin: 01/27/17 08:35 Dose: 100 mg Multivitamins (Theragran Tab*) 1 tab PO DAILY [facility] Last Admin: 01/27/17 08:34 Dose: 1 tab Nitroglycerin (Nitroglycerin Tab 0.4 Mg*) 0.4 mg SL Q5M PRN PRN Reason: CHEST PAIN X3 DOSES Last Admin: 01/23/17 22:56 Dose: 0.4 mg Sertraline HCl (Zoloft*) 100 mg PO DAILY [facility] Last Admin: 01/27/17 08:34 Dose: 100 mg Thiamine HCl (Vitamin B-1 Tab*) 100 mg PO DAILY [facility] Last Admin: 01/27/17 08:35 Dose: 100 mg Discharge Planning: Prescriptions provided for discharge [] Yes [x] No Follow up care details as per social work arrangements. Patient response to discharge plan: [] eager for discharge [x] agreeable with discharge plan [] ambivalent about discharge [] disagrees with discharge today
--- NOTE | 2017-01-27 11:44 | PN ---
[facility]: Group Therapy Note - Service Type Service Type: [id number] Group Psychotherapy - Cognitive Behavioral Group Therapy ( CBT):Patient was attentive and participatory in CBT programming this morning, and remained in good behavioral control. Patient expressed positive insights regarding relevant treatment interventions and goals.
== END 2017-01-27 11:10 | DRG 775 ==
LOC: BSU 20:08
PROVIDERS: ADMIT Psychiatry & Neurology Psychiatry; ATTEND Psychiatry & Neurology Psychiatry
PROC: HZ2ZZZZ Detoxification Services for Substance Abuse Treatment (ICD-10-PCS; principal; 2017-01-22)
PROC: GZHZZZZ Group Psychotherapy (ICD-10-PCS; 2017-01-22)
DX: F10.24 Alcohol dependence with alcohol-induced mood disorder (principal); F10.231 Alcohol dependence with withdrawal delirium; I47.2 Ventricular tachycardia; I42.0 Dilated cardiomyopathy; I50.22 Chronic systolic (congestive) heart failure; I11.0 Hypertensive heart disease with heart failure; I42.6 Alcoholic cardiomyopathy; E66.9 Obesity, unspecified; F41.9 Anxiety disorder, unspecified; F32.9 Major depressive disorder, single episode, unspecified; K70.10 Alcoholic hepatitis without ascites; R07.89 Other chest pain; Z82.49 Family history of ischemic heart disease and other diseases of the circulatory system; Z80.1 Family history of malignant neoplasm of trachea, bronchus and lung; Z68.31 Body mass index [BMI] 31.0-31.9, adult; Z81.1 Family history of alcohol abuse and dependence
CPT/HCPCS: 36415; 84484; 90853; 93005; 93306; 99222; 99231; 99238; A9270-GY

== ENCOUNTER 2018-04-30 07:24 | Emergency (ER) | payer SELFPAY ==
[2018-04-30] MEDS ORDERED: Morphine INJ** 4 MG/ML 1 ML CARPUJECT IV ONE (08:06)
[2018-04-30] MEDS ORDERED: NS 0.9% 1000 ML* 1,000 ML IV ONE (08:07)
[2018-04-30] MEDS ORDERED: Pantoprazole IV* 40 MG IV ONE (08:08)
--- NOTE | 2018-04-30 08:10 | ED ---
Abdominal Pain/Male - HPI Summary HPI Summary: This is Carissayajaira Bowers documenting for attending Dr. Gerardo Borden MD. The patient is a 28 y/o M presenting [place] [facility] c/o constant cramping epigastric abd pain starting three days ago and worsening this morning at 02:00. The pain radiates to the LUQ and RUQ. The pain is currently rated 5/10 in severity, but he states that it can worsen to 8/10 in severity when he is not distracted. He additionally c/o nausea vomiting that started a month ago, but has worsened in the last week. He has lost his appetite because eating aggravates the pain, and he has been diaphoretic. Per nurse Jeimy, the pt reported that he has also had blood in his stool a week ago. He states that he has hx of alcohol abuse and has been admitted for it, but he reports that he currently drinks 1-2 glasses of wine 4-5 times a week but has not drank in three days due to symptoms. He has hx of pancreatitis approximately 4 years ago and HTN. He has not had any abdominal surgeries, although he had an inguinal hernia repair in 2011. He takes Metoprolol, Clonidine, and Lisinopril. No allergies. Nonsmoker. - History of Current Complaint Chief Complaint: EDAbdPain Stated Complaint: ABD PAIN Time Seen by Provider: 04/30/18 07:43 Hx Obtained From: Patient Onset/Duration: Gradual Onset, Lasting Days - abd pain starting three days ago, worsening last night, Lasting Weeks - vomiting for a month, worsening in the last week, Still Present Timing: Constant Severity Initially: Mild Severity Currently: Moderate Pain Intensity: 6 Pain Scale Used: 0-10 Numeric Location: Epigastric Radiates: Yes Radiates to: Other - RUQ and LUQ Character: Cramping Aggravating Factor(s): Other: - eating Alleviating Factor(s): Nothing Associated Signs And Symptoms: Positive: Diaphoresis, Blood in Stool, Decreased Appetite, Nausea, Vomiting - Allergies/Home Medications Allergies/Adverse Reactions: Allergies Allergy/AdvReac Type Severity Reaction Status Date / Time No Known Allergies Allergy Verified 04/30/18 07:31 Home Medications: Home Medications Lisinopril TAB* [Prinivil TAB 5 MG*] 5 mg PO DAILY 04/30/18 [History Confirmed 04/30/18] Metoprolol Succinate XL TAB* [Toprol XL TAB*] 25 mg PO DAILY 04/30/18 [History Confirmed 04/30/18] cloNIDine 0.2 MG PATCH* [Eshyqbki-Xwh-0 0.2 mg Patch*] 1 patch TRANSDERM Q7D [History Confirmed 04/30/18] PMH/Surg Hx/FS Hx/Imm Hx Endocrine/Hematology History: Reports: Other Endocrine/Hematological Disorders - Thrombocytopenia Denies: Hx Diabetes, Hx Thyroid Disease Cardiovascular History: Reports: Hx Congestive Heart Failure, Hx Hypercholesterolemia, Hx Hypertension, Other 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 Respiratory History: Denies: Hx Asthma, Hx Chronic Obstructive Pulmonary Disease (COPD) GI History: Reports: Other GI Disorders - pancreatitis Denies: Hx Ulcer History: Denies: Hx Renal Disease Sensory History: Reports: Hx Contacts or Glasses Denies: Hx Hearing Aid Opthamlomology History: Reports: Hx Contacts or Glasses EENT History: Denies: Hx Deafness Neurological History: Reports: Hx Seizures - seizures with alcohol withdrawl Psychiatric History: Reports: Hx Anxiety, Hx Depression, Hx Substance Abuse Denies: Hx Eating Disorder, Hx of Violent Episodes Against Others - Surgical History Surgery Procedure, Year, and Place: inguinal hernia repair 2011. birthmark removal from back Infectious Disease History: No Infectious Disease History: Denies: Hx Hepatitis, Hx Human Immunodeficiency Virus (HIV), Hx of Known/ Suspected MRSA, Hx Shingles, Hx Tuberculosis, History Other Infectious Disease, Traveled Outside the [place] in Last 30 Days - Family History Known Family History: Positive: Hypertension Negative: Blood Disorder - Social History Alcohol Use: Weekly Alcohol Amount: 1 liter of liquor or beer Substance Use Type: Reports: None Substance Use Comment - Amount & Last Used: 01/15/17 Smoking Status (MU): Never Smoked Tobacco Review of Systems Positive: Skin Diaphoresis Positive: Abdominal Pain - epigastric radiating to RUQ and LUQ, Vomiting, Nausea , Other - blood in stool All Other Systems Reviewed And Are Negative: Yes Physical Exam - Summary Physical Exam Summary: GENERAL: Patient is a well developed and nourished male who is lying comfortable in the stretcher. Patient is not in any acute respiratory distress. HEAD AND FACE: Normocephalic EYES: PERRLA, EOMI x 2. EARS: Hearing grossly intact. MOUTH: Oropharynx within normal limits. NECK: Supple, trachea is midline, no adenopathy, no JVD, no carotid bruit. CHEST: Symmetric, no tenderness at palpation LUNGS: Clear to auscultation bilaterally. No wheezing or crackles. CVS: Regular rate and rhythm, S1 and S2 present, no murmurs or gallops appreciated. ABDOMEN: Soft. Tender to palpation in the epigastric region and RUQ. Bowel sounds are normal. No abdominal abnormal pulsations. EXTREMITIES: Full ROM in all major joints, no edema, no cyanosis or clubbing. NEURO: Alert and oriented x 3. No acute neurological deficits. Speech is normal and follows commands. SKIN: Dry and warm Triage Information Reviewed: Yes Vital Signs On Initial Exam: Initial Vitals Temp Pulse Resp BP Pulse Ox 97.8 F 88 16 187/100 99 04/30/18 07:28 04/30/18 07:28 04/30/18 07:28 04/30/18 07:28 04/30/18 07:28 Vital Signs Reviewed: Yes Diagnostics - Vital Signs Vital Signs Temp Pulse Resp BP Pulse Ox 04/30/18 07:28 97.8 F 88 16 187/100 99 - Laboratory Result Diagrams: 04/30/18 07:51 04/30/18 07:51 Lab Statement: Any lab studies that have been ordered have been reviewed, and results considered in the medical decision making process. - CT Abd/Pel CT Interpretation: Positive (See Comments) - 1. Hepatomegaly and hepatosteatosis. 2. Acute pancreatitis with large region of pancreatic necrosis at the pancreatic tail. Moderately severe peripancreatic inflammatory change and 3.5 x 5.5 x 11.5 cm thin-walled loculated peripancreatic fluid collection extending caudal from the pancreatic tail along the anterior margin of the conal fascia. The findings of pancreatic necrosis and a loculated fluid collection are new compared with the October 15, [address] abnormality of the gallbladder or biliary dilatation. ED physician has reviewed this report. CT Interpretation Completed By: Radiologist Re-Evaluation - Re-Evaluation First Eval Re-Evaluation Time: 10:20 Change: Unchanged Comment: I spoke with the pt concerning positive CT Abd/Pel results. I told him that he must be transferred to [facility] for further care because the pancreatectomy he needs is not available [place] [facility] Patient understands need for transfer and agrees with this plan. Abdominal Pain Fem Course/Dx - Course Course Of Treatment: The patient is a 28 y/o M presenting [place] [facility] c/o epigastric abd pain that radiates to the RUQ and LUQ starting three days ago and worsening since 02:00 this morning. The pt additionally c/o nausea and vomiting that started a month ago and has worsened in the last week. He also reports blood in his stool a week ago, diaphoresis, and loss of appetite. He reports that he has past diagnosis of alcohol abuse with admittance [place] [facility] He states that he currently drinks 1-2 glasses of wine 4-5 times a week, but has not drank in three days due to pain. He has hx of alcohol-induced CHF. He has hx of pancreatitis. He takes Metoprolol, Linsinopril, and Clonidine. Medications reviewed. Allergies noted. Elevated BP noted. In the ED course, the pt was administered IVPB Pipercillin/Tazobactam Saline 100mls @ 200mls/hr, IV Ns 0.9% 1000mls @ 1000mls/hr, Dilaudid 1mg 2x, IV Visipaque Contrast 135ml, IV Morphine 4mg, IV Zofran 4mg, IV Pantoprazole 80mg. CT Abd/Pel reveals acute pancreatitis with necrosis and hepatosteatosis. Bloodwork shows low sodium and increased lipase. He is diagnosed with acute pancreatitis with necrosis. I consulted with Dr. Treviño, surgery, at 10:25, who said that the pt has to be transferred because the required specialties are not available [place] [facility] The pt will be transferred to [facility] in [place], [place] for hepatobiliary services. Patient understands need for transfer and is agreeable with this plan. I spoke with Dr. Cuadra, hepatobiliary services at [place], at 11:15, who said that he will talk to the production quality manager, Dr. Small. If Dr. Small refuses to accept the pt, Dr. Cuadra will accept. Dr. Small accepted transfer at 11:20 to ICU. Upon transfer, pt will receive Ns, Dilaudid, and Morphine. Critical care time on pt of 35 minutes. - Diagnoses Provider Diagnoses: Acute pancreatic necrosis - Provider Notifications Discussed Care Of Patient With: Beto Treviño - I spoke with Dr. Cuadra, hepatobiliary services at [place], at 11:15, who said that he will talk to the production quality manager, Dr. Small. If Dr. Small refuses to accept the, Dr. Cuadra will accept. Time Discussed With Above Provider: 10:25 Instructed by Provider To: Transfer - Pt needs hepatobiliary services, which are unavailable at [facility] Admit/Transition Orders Completed By ED Provider: Yes Reason For Transfer: Specialty or service not available at [facility] - for hepatobiliary services - Critical Care Time Critical Care Time: 30-74 min - 35 minutes Discharge - Sign-Out/Discharge Documenting (check all that apply): Patient Departure - Pt will be transferred to [facility] to Dr. Small. - Discharge Plan Condition: Stable Disposition: TRANS HIGHER LVL OF CARE FAC Referrals: Duc López MD [Primary Care Provider] - - Billing Disposition and Condition Condition: STABLE Disposition: Trans Higher Lvl of Care Fac
[2018-04-30 08:19] LABS: ABS Basophils 0.2 10^3/ul (0-0.2); ABS Eosinophils 0 10^3/ul (0-0.6); ABS Lymphocytes 1.2 10^3/ul (1.0-4.8); ABS Monocytes 0.4 10^3/ul (0-0.8); ABS Neutrophils 8.1 10^3/ul (1.5-7.7); ABS Nucleated RBC 0 10^3/ul; Eosinophil % 0.3 % (0-6); Hematocrit 42 % (42-52); Hemoglobin 14.1 g/dl (14.0-18.0); Lymphocyte % 12.4 % (25-47); Mean Corpuscular HGB Conc 34 g/dl (31-36); Mean Corpuscular Hemoglobin 32 pg (27-31); Mean Corpuscular Volume 97 fL (80-94); Mean Platelet Volume 7.2 um3 (7.4-10.4); Nucleated Red Blood Cells % 0.2; Platelet Count 130 10^3/ul (150-450); Red Blood Count 4.34 10^6/ul (4.00-5.40); Red Cell Distribution Width 14 % (10.5-15)
[2018-04-30] MEDS: Ondansetron INJ* 2 MG/ML VIAL IV ONE ×2 (08:26→10:58)
[2018-04-30 08:47] LABS: EGFR Non-African American 36.9 (>60)
[2018-04-30] MEDS ORDERED: Iodixanol* (CONTRAST) 320 MG/ML 100 ML SDV IV ONE (08:53)
[2018-04-30] MEDS ORDERED: Morphine VIAL* 10 MG/ML 1 ML VIAL IV ONE (09:00)
--- NOTE | 2018-04-30 10:08 | RAD ---
INDICATION: Abdominal pain. Clinical concern for pancreatitis. Previous inguinal hernia repair. COMPARISON: October 15, 2016 CT. TECHNIQUE: Multidetector CT images were obtained from the lung bases to the ischial tuberosities with 135 mL Visipaque 320 IV and oral contrast. Multiplanar reformation. REPORT: Unremarkable visualized inferior thorax. Severely decreased density of the 22.4 cm cephalocaudal liver consistent with severe hepatosteatosis. Mild focal sparing at the gallbladder fossa and flanking the fissure for the ligamentum teres. No CT abnormality of the gallbladder. Negative for biliary dilatation. Moderately severe peripancreatic inflammatory change with small volume of nonloculated peripancreatic retroperitoneal fluid. Inflammatory change extends to the gastrohepatic ligament. Loss of normal enhancement at approximate two thirds of the pancreatic tail consistent with pancreatic necrosis. 3.5 cm AP by 5.5 cm transverse by 11.5 cm cephalocaudal thin-walled loculated fluid collection extends caudal from the pancreatic tail along the anterior margin of the conal fascia. No retroperitoneal gas evident. Negative for CT abnormality of the upper GI, small bowel, appendix, or colon. The colon is largely decompressed. Negative for significant ascites. Negative for free air or significant hernias. Surgical clips related to previous infraumbilical midline hernia repair. Normal adrenal glands. Unremarkable kidneys with symmetric nephrograms and pyelograms. Unremarkable nondilated ureters and partially distended urinary bladder. Symmetric seminal vesicles. Negative for lymphadenopathy. Normal diameter abdominal aorta and iliac arteries. Physiologic distention of the IVC. Negative for suspicious osseous lesions. IMPRESSION: #. Hepatomegaly and hepatosteatosis. #. Acute pancreatitis with large region of pancreatic necrosis at the pancreatic tail. Moderately severe peripancreatic inflammatory change and 3.5 x 5.5 x 11.5 cm thin-walled loculated peripancreatic fluid collection extending caudal from the pancreatic tail along the anterior margin of the conal fascia. The findings of pancreatic necrosis and a loculated fluid collection are new compared with the October 15, 2016 exam. #. No CT abnormality of the gallbladder or biliary dilatation. Results discussed with Dr. Copeland 04/30/2018 10:04 AM EDT
[2018-04-30] MEDS ORDERED: Piperacillin/Tazobac ADVAN(*) 3.375 GM in NS 0.9% 100 ML* 100 ML IVPB ONE (10:11)
[2018-04-30] MEDS ORDERED: HYDROmorphone INJ* 2 MG/ML CARPUJECT SYRINGE IV SLOW PU ONE ×2 (10:14→12:50)
[2018-04-30] MEDS ORDERED: HYDROmorphone INJ* 1 MG/ML CARPUJECT SYRINGE ONE (10:15)
[2018-04-30] MEDS ORDERED: HYDROmorphone INJ* 1 MG/ML CARPUJECT SYRINGE IV SLOW PU ONE (10:17)
[2018-04-30] MEDS ORDERED: Ondansetron INJ* 2 MG/ML VIAL ONE (10:57)
[2018-04-30 12:41] VITALS: BP 173/113
== END 2018-04-30 12:39 | disposition short-term general hospital (02) ==
LOC: ED 07:24
DX: K85.92 Acute pancreatitis with infected necrosis, unspecified (principal); R61 Generalized hyperhidrosis; K92.1 Melena; R11.2 Nausea with vomiting, unspecified; I10 Essential (primary) hypertension; Z82.49 Family history of ischemic heart disease and other diseases of the circulatory system
CPT/HCPCS: 36415; 74177; 80053; 82150; 83605; 83690; 85025; 85610; 86140; 86850; 86900; 86901; 96365; 96375; 96376; 99284; J1170; J2270; J2405; J2543; Q9967

== ENCOUNTER 2020-06-03 10:25 | Inpatient (IN) ==
[2020-06-03] MEDS ORDERED: Lidocaine 1% VIAL 10 MG/ML VIAL INJ ONE (10:44)
[2020-06-03 11:42] LABS: ABS Lymphocytes 0.9 10^3/ul (1.0-4.8); ABS Monocytes 0.4 10^3/ul (0-0.8); ABS Neutrophils 3.5 10^3/ul (1.5-7.7); Eosinophil % 0.9 %; Hematocrit 43 % (42-52); Hemoglobin 15.5 g/dL (14.0-18.0); Lymphocyte % 19.3 %; Mean Corpuscular HGB Conc 36 g/dL (31-36); Mean Corpuscular Hemoglobin 35 pg (27-31); Mean Corpuscular Volume 98 fL (80-94); Mean Platelet Volume 8.1 fL (7.4-10.4); Nucleated Red Blood Cells % 0.1; Platelet Count 107 10^3/uL (150-450); Red Blood Count 4.37 10^6 /uL (4.18-5.48); Red Cell Distribution Width 14 % (10-15); White Blood Count 4.9 10^3/uL (3.5-10.8)
[2020-06-03 12:17] LABS: ALT 106 U/L (7-52); AST 91 U/L (13-39); Acetaminophen < 15 mcg/mL; Albumin 4.7 g/dL (3.2-5.2); Albumin/Globulin Ratio 1.7 (1-3); Alcohol, S < 10 mg/dL (<10); Alkaline Phosphatase 72 U/L (34-104); Anion Gap 10 mmol/L (2-11); BUN/Creatinine Ratio 13.1 (8-20); Blood Urea Nitrogen 16 mg/dL (6-24); CO2 Carbon Dioxide 27 mmol/L (22-32); Calcium 9.5 mg/dL (8.6-10.3); Chloride 99 mmol/L (101-111); EGFR African American 83.8 (>60); EGFR Non-African American 69.3 (>60); Globulin 2.7 g/dL (2-4); Glucose 161 mg/dL (70-100); Potassium 3.9 mmol/L (3.5-5.0); Salicylate < 2.50 mg/dL (<30); Sodium 136 mmol/L (135-145); Total Protein 7.4 g/dL (6.4-8.9)
[2020-06-03] MEDS ORDERED: Thiamine 100 MG/ML 2 ml VIAL (200 mg) IM ONE (13:58)
[2020-06-03] MEDS ORDERED: Multivitamins/Minerals TAB PO SCH (14:00)
[2020-06-03] MEDS: Multivitamins/Minerals TAB PO SCH (18:30)
[2020-06-04] MEDS: Multivitamins/Minerals TAB PO SCH (09:00)
[2020-06-04 17:02] LABS: Urine Appearance Clear; Urine Bilirubin Negative (Negative); Urine Blood Negative (Negative); Urine Color Amber; Urine Glucose Negative (Negative); Urine Ketones Trace (Negative); Urine Nitrite Negative (Negative); Urine Protein 2+(100 mg/dL) (Negative); Urine Specific Gravity 1.031 (1.010-1.030); Urine Urobilinogen Negative (Negative)
[2020-06-04 17:04] LABS: Urine Benzodiazepine Screen None Detected (None Detect); Urine Cannabinoids Screen None Detected (None Detect); Urine Opiates Screen None Detected (None Detect)
[2020-06-04 17:18] LABS: Urine Bacteria Absent (Absent); Urine Red Blood Cell Trace(0-2/hpf) (Absent); Urine Squamous Epithelial Cell Present (Absent); Urine White Blood Cell Trace(0-5/hpf) (Absent)
[2020-06-05] MEDS: Multivitamins/Minerals TAB PO SCH (09:03)
[2020-06-06] MEDS: Multivitamins/Minerals TAB PO SCH (09:34)
[2020-06-06] MEDS: Al Hydrox/Mg Hydrox/Simet LIQ 30 ML UDC PO PRN (13:56)
[2020-06-07 07:54] LABS: Cholesterol 182 mg/dL; HDL Cholesterol 19.9 mg/dL; Triglycerides 677 mg/dL
[2020-06-07 08:11] LABS: LDL Cholesterol Direct 52 mg/dL
[2020-06-07] MEDS: Multivitamins/Minerals TAB PO SCH (09:37)
[2020-06-07 10:37] LABS: ALT 138 U/L (7-52); Albumin 4.3 g/dL (3.2-5.2); Albumin/Globulin Ratio 1.7 (1-3); Alkaline Phosphatase 71 U/L (34-104); Globulin 2.6 g/dL (2-4); Total Protein 6.9 g/dL (6.4-8.9)
[2020-06-07] MEDS: Al Hydrox/Mg Hydrox/Simet LIQ 30 ML UDC PO PRN (13:48)
[2020-06-08] MEDS: Multivitamins/Minerals TAB PO SCH (08:52)
[2020-06-09] MEDS: Multivitamins/Minerals TAB PO SCH (09:02)
[2020-06-09] MEDS: Al Hydrox/Mg Hydrox/Simet LIQ 30 ML UDC PO PRN (14:38)
[2020-06-10] MEDS: Multivitamins/Minerals TAB PO SCH (09:37)
[2020-06-10] MEDS ORDERED: PPD test dose 5 TU/0.1 ML TEST (*USE PPD ORDER SET*) INTRADERM ONE (15:00)
[2020-06-11 08:07] LABS: ABS Eosinophils 0.1 10^3/ul (0-0.6); ABS Lymphocytes 1.6 10^3/ul (1.0-4.8); ABS Monocytes 0.5 10^3/ul (0-0.8); ABS Neutrophils 3.6 10^3/ul (1.5-7.7); Eosinophil % 1.5 %; Hematocrit 41 % (42-52); Hemoglobin 15.1 g/dL (14.0-18.0); Lymphocyte % 27.3 %; Mean Corpuscular HGB Conc 37 g/dL (31-36); Mean Corpuscular Hemoglobin 36 pg (27-31); Mean Corpuscular Volume 98 fL (80-94); Mean Platelet Volume 9.1 fL (7.4-10.4); Platelet Count 122 10^3/uL (150-450); Red Blood Count 4.21 10^6 /uL (4.18-5.48); Red Cell Distribution Width 14 % (10-15); White Blood Count 5.8 10^3/uL (3.5-10.8)
[2020-06-11 08:10] LABS: Albumin 4.7 g/dL (3.2-5.2); Albumin/Globulin Ratio 1.7 (1-3); Globulin 2.7 g/dL (2-4); Indirect Bilirubin 0.6 mg/dL (0.3-1.0); Total Bilirubin 0.8 mg/dL (0.2-1.0); Total Protein 7.4 g/dL (6.4-8.9)
[2020-06-11] MEDS: Multivitamins/Minerals TAB PO SCH (09:03)
[2020-06-11 10:19] LABS: Calcium 9.8 mg/dL (8.6-10.3); Potassium 4.1 mmol/L (3.5-5.0)
[2020-06-11 10:24] LABS: BUN/Creatinine Ratio 13.8 (8-20); EGFR Non-African American 68.6 (>60)
[2020-06-11] MEDS: Al Hydrox/Mg Hydrox/Simet LIQ 30 ML UDC PO PRN (13:06)
[2020-06-12] MEDS ORDERED: PPD Reading 48-72 HRS NOTE SCH (06:00)
[2020-06-12] MEDS: Multivitamins/Minerals TAB PO SCH (09:02)
[2020-06-13 07:52] LABS: ABS Eosinophils 0.1 10^3/ul (0-0.6); ABS Lymphocytes 1.7 10^3/ul (1.0-4.8); ABS Monocytes 0.6 10^3/ul (0-0.8); ABS Neutrophils 3.6 10^3/ul (1.5-7.7); Eosinophil % 1.6 %; Hematocrit 42 % (42-52); Hemoglobin 15.2 g/dL (14.0-18.0); Lymphocyte % 28.4 %; Mean Corpuscular HGB Conc 36 g/dL (31-36); Mean Corpuscular Hemoglobin 36 pg (27-31); Mean Corpuscular Volume 98 fL (80-94); Mean Platelet Volume 8.7 fL (7.4-10.4); Nucleated Red Blood Cells % 0.1; Platelet Count 138 10^3/uL (150-450); Red Blood Count 4.28 10^6 /uL (4.18-5.48); Red Cell Distribution Width 13 % (10-15)
[2020-06-13] MEDS: Multivitamins/Minerals TAB PO SCH (09:14)
[2020-06-14] MEDS: Multivitamins/Minerals TAB PO SCH (09:17)
[2020-06-15] MEDS: Multivitamins/Minerals TAB PO SCH (09:28)
[2020-06-16] MEDS: Multivitamins/Minerals TAB PO SCH (08:42)
[2020-06-17] MEDS: Multivitamins/Minerals TAB PO SCH (09:04)
[2020-06-18] MEDS: Multivitamins/Minerals TAB PO SCH (08:59)
[2020-06-18 12:49] LABS: ABS Eosinophils 0.1 10^3/ul (0-0.6); ABS Lymphocytes 1.2 10^3/ul (1.0-4.8); ABS Monocytes 0.3 10^3/ul (0-0.8); ABS Neutrophils 2.8 10^3/ul (1.5-7.7); Eosinophil % 1.2 %; Hematocrit 41 % (42-52); Hemoglobin 14.6 g/dL (14.0-18.0); Mean Corpuscular HGB Conc 36 g/dL (31-36); Mean Corpuscular Hemoglobin 35 pg (27-31); Mean Corpuscular Volume 98 fL (80-94); Mean Platelet Volume 8.7 fL (7.4-10.4); Nucleated Red Blood Cells % 0.1; Platelet Count 128 10^3/uL (150-450); Red Blood Count 4.15 10^6 /uL (4.18-5.48); Red Cell Distribution Width 13 % (10-15); White Blood Count 4.5 10^3/uL (3.5-10.8)
[2020-06-18 13:02] LABS: Albumin 4.6 g/dL (3.2-5.2); Albumin/Globulin Ratio 1.9 (1-3); BUN/Creatinine Ratio 16.2 (8-20); Calcium 9.7 mg/dL (8.6-10.3); EGFR Non-African American 72.7 (>60); Globulin 2.4 g/dL (2-4); Potassium 4.4 mmol/L (3.5-5.0); Total Bilirubin 0.5 mg/dL (0.2-1.0)
[2020-06-19] MEDS: Multivitamins/Minerals TAB PO SCH (09:04)
[2020-06-20] MEDS: Multivitamins/Minerals TAB PO SCH (09:08)
[2020-06-21] MEDS: Multivitamins/Minerals TAB PO SCH (08:59)
[2020-06-21 13:59] LABS: Hepatitis B Surface Antigen Nonreactive (Nonreactive)
[2020-06-21 14:04] LABS: Hepatitis A Ab IgM Negative (Negative)
[2020-06-21 14:05] LABS: Hepatitis B Core IgM Nonreactive (Nonreactive)
[2020-06-21 14:17] LABS: Hepatitis C Antibody Negative (Negative)
[2020-06-22] MEDS: Multivitamins/Minerals TAB PO SCH (09:19)
[2020-06-23] MEDS: Multivitamins/Minerals TAB PO SCH (09:35)
[2020-06-24] MEDS: Multivitamins/Minerals TAB PO SCH (09:09)
[2020-06-24] MEDS: Lidocaine PATCH 5% PATCH TRANSDERM SCH (13:43)
[2020-06-24] MEDS: Lidocaine Patch REMOVE PATCH PATCH OFF SCH (21:22)
[2020-06-25 07:17] LABS: Albumin 4.5 g/dL (3.2-5.2); Albumin/Globulin Ratio 1.9 (1-3); Globulin 2.4 g/dL (2-4); HDL Cholesterol 24.8 mg/dL; Total Bilirubin 0.4 mg/dL (0.2-1.0); Total Protein 6.9 g/dL (6.4-8.9)
[2020-06-25 08:52] LABS: Indirect Bilirubin 0.3 mg/dL (0.3-1.0)
[2020-06-25] MEDS: Multivitamins/Minerals TAB PO SCH (09:09)
[2020-06-25] MEDS: Lidocaine PATCH 5% PATCH TRANSDERM SCH (09:10)
[2020-06-25] MEDS ORDERED: Lidocaine 1% w EPI 1:200,000 SDV 30 ML VIAL ONE (18:12)
[2020-06-25] MEDS ORDERED: Bacitracin OINTMENT TUBE ONE (18:54)
[2020-06-25] MEDS: Lidocaine Patch REMOVE PATCH PATCH OFF SCH (19:53)
[2020-06-26] MEDS: Multivitamins/Minerals TAB PO SCH (09:12)
[2020-06-26] MEDS: Lidocaine PATCH 5% PATCH TRANSDERM SCH (09:29)
[2020-06-26] MEDS: Lidocaine Patch REMOVE PATCH PATCH OFF SCH (19:56)
[2020-06-27] MEDS: Lidocaine PATCH 5% PATCH TRANSDERM SCH (09:16)
[2020-06-27] MEDS: Multivitamins/Minerals TAB PO SCH (09:16)
[2020-06-27] MEDS ORDERED: Naltrexone INJ 380 MG IM ONE (13:38)
[2020-06-27] MEDS: Lidocaine Patch REMOVE PATCH PATCH OFF SCH (21:02)
[2020-06-28 08:04] VITALS: BP 156/90
[2020-06-28] MEDS: Multivitamins/Minerals TAB PO SCH (08:18)
[2020-06-28] MEDS: Lidocaine PATCH 5% PATCH TRANSDERM SCH (08:43)
== END 2020-06-28 08:40 | DRG 751 ==
LOC: ED 10:25 → BSU 13:56
PROVIDERS: ADMIT Psychiatry & Neurology Psychiatry; ATTEND Psychiatry & Neurology Psychiatry